=== PATIENT | male | born 1945 | race Caucasian/White ===

== ENCOUNTER 2017-05-20 13:21 | Inpatient (IN) | payer MEDICARE, OTHER ==
[~2017-05-20] VITALS: Ht 162.6 cm; Wt 61.1 kg
[~2017-05-20 13:21] MED LIST: ALBUTEROL 0.083% (NEB) 2.5 MG/3 ML AMP ONE
[2017-05-20 13:29] VITALS: Ht 162.6 cm; Wt 61.1 kg
--- NOTE | 2017-05-20 13:38 | ERA ---
ER Documentation Chief Complaint Date/Time DATE: 05/20/17 TIME: 13:37 Chief Complaint SOB X 4 DAYS HPI The patient is a 72-year-old male, presenting to the ER by ambulance because he has had shortness of breath, generalized weakness, dry mouth, intermittent dry cough for the last 4 days. He also complained of headache yesterday but denies any headache now, complains of insomnia, denies fever, chills, neck pain, chest pain. He complains of shortness of breath that is worsened with cough, denies abdominal pain, vomiting, dysuria, diarrhea. He lives alone, smokes a pack a day, denies drinking Past medical history: COPD, hypertension, dyslipidemia Past surgical history: Appendectomy ROS All systems reviewed and are negative except as per history of present illness. Medications Home Meds Reported Medications Albuterol Sulfate* (Ventolin HFA*) 18 Gm Hfa.aer.ad, 2 PUFF INHALATION Q6H, #1 INHALER 05/20/17 Ipratropium-Albuterol (Ipratropium-Albuterol) 0.5-3 Mg/3 Ml Ampul.neb, 3 ML INHALATION BID, #30 VIAL 05/20/17 Cholecalciferol* (Vitamin D3*) 1,000 Unit Tablet, 3000 UNIT PO DAILY, TAB 05/20/17 Lorazepam* (Lorazepam*) 0.5 Mg Tablet, 0.5 MG PO HS Y for ANXIETY, TAB 05/20/17 Montelukast Sodium* (Singulair*) 10 Mg Tablet, 10 MG PO QHS, #30 TAB 05/20/17 Olmesartan Medoxomil (Benicar) 20 Mg Tablet, 20 MG PO QAM, #30 TAB 05/20/17 Allergies Allergies: Coded Allergies: No Known Allergy (Unverified , 05/20/17) PMhx/Soc History of Surgery: Yes (APPENDECTOMY) Anesthesia Reaction: No Hx Neurological Disorder: No Hx Respiratory Disorders: Yes (COPD) Hx Cardiac Disorders: Yes (HTN, HIGH CHOLESTEROL) Hx Psychiatric Problems: No Hx Miscellaneous Medical Probl: Yes (EPIDYDIMITIS) Hx Alcohol Use: No Hx Substance Use: No Hx Tobacco Use: Yes Smoking Status: Current every day smoker Physical Exam Vitals Vital Signs Date Time Temp Pulse Resp B/P Pulse Ox O2 Delivery O2 Flow Rate FiO2 05/20/17 17:23 82 22 112/76 95 Room Air 05/20/17 15:41 92 23 124/96 99 Room Air 05/20/17 14:05 98 18 93 21 05/20/17 13:29 98.1 75 26 115/89 98 Physical Exam Const: Mild acute distress. Head: Atraumatic. Eyes: Normal Conjunctiva. ENT: Normal External Ears, Nose and Mouth. Neck: Full range of motion. No meningismus. Resp: Bilateral expiratory wheezes, tachypnea Cardio: Regular rate and rhythm. Abd: Soft, non distended, normal bowel sounds, non tender. Skin: No petechiae or rashes. Back: No midline or flank tenderness. Ext: No cyanosis, or edema. Neur: Awake and alert. No focal deficit Psych: Normal Mood and Affect. Result Diagram: 05/20/17 1345 05/20/17 1345 Results 24 hrs Laboratory Tests Test 05/20/17 13:45 05/20/17 15:13 05/20/17 15:25 White Blood Count 9.910^3/ul Red Blood Count 4.8610^6/ul Hemoglobin 14.6g/dl Hematocrit 44.2% Mean Corpuscular Volume 90.9fl Mean Corpuscular Hemoglobin 30.0pg Mean Corpuscular Hemoglobin Concent 33.0g/dl Red Cell Distribution Width 14.2% Platelet Count 41524^3/UL Mean Platelet Volume 10.9fl Neutrophils % 69.2% Lymphocytes % 19.7% Monocytes % 8.5% Eosinophils % 1.4% Basophils % 0.6% Nucleated Red Blood Cells % 0.0/100WBC Neutrophils # 6.810^3/ul Lymphocytes # 1.910^3/ul Monocytes # 0.810^3/ul Eosinophils # 0.110^3/ul Basophils # 0.110^3/ul Nucleated Red Blood Cells # 0.010^3/ul Prothrombin Time 12.2Sec Prothrombin Time Ratio 1.0 INR International Normalized Ratio 0.91 Activated Partial Thromboplast Time 32.0Sec Sodium Level 137mmol/L Potassium Level 4.4mmol/L Chloride Level 107mmol/L Carbon Dioxide Level 24mmol/L Anion Gap 10 Blood Urea Nitrogen 19mg/dl Creatinine 0.93mg/dl Glucose Level 113mg/dl Lactic Acid Level 1.5mmol/L Calcium Level 8.9mg/dl Total Bilirubin 0.2mg/dl Direct Bilirubin 0.00mg/dl Indirect Bilirubin 0.2mg/dl Aspartate Amino Transf (AST/SGOT) 19IU/L Alanine Aminotransferase (ALT/SGPT) 41IU/L Alkaline Phosphatase 121IU/L Troponin I < 0.012ng/ml Total Protein 7.0g/dl Albumin 4.0g/dl Globulin 3.00g/dl Albumin/Globulin Ratio 1.33 Urine Color YELLOW Urine Clarity CLEAR Urine pH 6.0 Urine Specific [place] 1.009 Urine Ketones NEGATIVEmg/dL Urine Nitrite NEGATIVEmg/dL Urine Bilirubin NEGATIVEmg/dL Urine Urobilinogen NEGATIVEmg/dL Urine Leukocyte Esterase NEGATIVELeu/ul Urine Hemoglobin NEGATIVEmg/dL Urine Glucose NEGATIVEmg/dL Urine Total Protein NEGATIVEmg/dl Bedside Urine pH (LAB) 6.5 Bedside Urine Protein (LAB) Negative Bedside Urine Glucose (UA) Negative Bedside Urine Ketones (LAB) Negative Bedside Urine Blood Negative Bedside Urine Nitrite (LAB) Negative Bedside Urine Leukocyte Esterase (L Negative Current Medications Medications (Trade) Dose Ordered Sig/Baljeet Route PRN Reason Start Time Stop Time Status Last Admin Dose Admin Levalbuterol (Xopenex Neb) 3.75 mg ONCE STAT INH 05/20/17 13:43 05/20/17 13:46 DC 05/20/17 14:05 Ipratropium [place] (Atrovent 0.02% (Neb)) 1.5 mg ONCE STAT INH 05/20/17 13:43 05/20/17 13:46 DC 05/20/17 14:05 Methylprednisolone Sodium Succinate 125 mg 125 mg ONCE ONCE IV 05/20/17 14:00 05/20/17 14:01 DC 05/20/17 14:03 Sodium Chloride 2,250 ml @ 2,250 mls/hr BOLUS X1 ONCE IV 05/20/17 14:00 05/20/17 14:59 DC 05/20/17 14:03 Levofloxacin/ Dextrose (Levaquin 750 Mg/ D5W 150 ml (Pmx)) 150 ml @ 100 mls/hr ONCE ONCE IVPB 05/20/17 15:00 05/20/17 16:29 DC 05/20/17 15:05 IV Flush (NS 3 ml) 3 ml PER PROTOCOL IV 05/20/17 15:30 Ondansetron HCl (Zofran Inj) 4 mg Q6H PRN IV NAUSEA AND/OR VOMITING 05/20/17 15:30 Acetaminophen (Tylenol Tab) 650 mg Q6H PRN PO PAIN LEVEL 1-3 OR FEVER 05/20/17 15:30 Acetaminophen/ Hydrocodone Bitart ([place] (5/325)) 1 tab Q6H PRN PO MODERATE PAIN LEVEL 4-6 05/20/17 15:30 Morphine Sulfate (morphine) 2 mg Q4H PRN IV SEVERE PAIN LEVEL 7-10 05/20/17 15:30 Docusate Sodium (Colace) 100 mg Q12H PRN PO CONSTIPATION 05/20/17 15:30 Magnesium Hydroxide (Milk Of Mag) 30 ml DAILY PRN PO CONSTIPATION 05/20/17 15:30 Sodium Biphosphate/ Sodium Phosphate (Fleet Enema) 133 ml DAILY PRN [place] CONSTIPATION 05/20/17 15:30 Heparin Sodium (Porcine) 5000 unit 5,000 unit Q12 SC 05/20/17 21:00 Sodium Chloride (1/2 NS) 1,000 ml @ 75 mls/hr [id number] IV 05/20/17 15:15 Lorazepam (Ativan) 0.5 mg Q6H PRN IV ANXIETY 05/20/17 15:30 05/20/17 16:10 Albuterol/ Ipratropium 3 ml 3 ml Q4H RESP THERAPY HHN 05/20/17 17:00 Levofloxacin/ Dextrose (Levaquin 750 Mg/ D5W 150 ml (Pmx)) 150 ml @ 100 mls/hr Q24H IVPB 05/21/17 14:00 Hydralazine HCl (Apresoline) 10 mg Q6H PRN IV ELEVATED BLOOD PRESSURE 05/20/17 15:30 Clonidine (Catapres) 0.1 mg Q6H PRN PO ELEVATED BLOOD PRESSURE 05/20/17 15:30 Nitroglycerin (Nitroglycerin (Sl Tab) 0.4 Mg) 1 tab Q5M PRN SL ANGINA 05/20/17 15:30 Cholecalciferol (Vitamin D) 3,000 unit DAILY PO 05/21/17 09:00 Montelukast Sodium (Singulair) 10 mg QHS PO 05/20/17 21:00 Methylprednisolone Sodium Succinate (Solu-Medrol) 125 mg Q6 IV 05/20/17 18:00 Phenol (Cepastat Lozenge) 1 lozenge Q1H PRN MT COUGH 05/20/17 16:00 Nicotine (Nicoderm 21 Mg/ 24hr) 1 patch DAILY TRANSDERM 05/20/17 18:00 Procedures/MDM [place] [id number] Radiology Main Line: [phone] DIAGNOSTIC IMAGING REPORT Patient: AZ MACKENZIE : 1945 Age: 72 Sex: M MR #: [id number] DOS: 05/20/17 134 Ordering MD: ASHLEY ANDERSEN MD Location: E/R Room/Bed: PROCEDURE: XR Chest. CLINICAL INDICATION: Shortness of breath TECHNIQUE: Single portable view of the chest was obtained COMPARISON: No priors for comparison. FINDINGS: The trachea is midline. The cardiac silhouette and pulmonary vascularity are within normal limits. There are bilateral chronic lung changes. The lungs are otherwise clear.. The costophrenic angles are sharp. IMPRESSION: 1. Bilateral chronic lung changes. No evidence of acute cardiopulmonary disease. RPTAT: AARR Physician Agapito Date Time Electronically viewed and signed by Physician Agapito on 05/20/2017 14:46 JL/ CC: ASHLEY ANDERSEN MD [place] [id number] Radiology Main Line: [phone] DIAGNOSTIC IMAGING REPORT Patient: AZ MACKENZIE : 1945 Age: 72 Sex: M MR #: [id number] DOS: 05/20/17 1343 Ordering MD: ASHLEY ANDERSEN MD Location: E/R Room/Bed: PROCEDURE: CT head without intravenous contrast CLINICAL INDICATION: Headache. COMPARISON: None relevant listed. TECHNIQUE: Axial CT images from skull base to vertex with coronal and sagittal reformats. DOSE: The estimated administered radiation dose was CTDI vol = 43 mGy. DLP = 878 mGy-cm. One or more of the following dose reduction techniques were used: automated exposure control, adjustment of the mA and/or kV according to patient size, or use of iterative reconstruction. FINDINGS: Parenchyma: No acute hemorrhage, large territorial infarction, or mass. Mild amount of periventricular and subcortical white matter hypodensity, a nonspecific finding often associated with chronic microangiopathy. Ventricles: Mild generalized volume with proportionate ex vacuo ventricular dilation. Extra-axial spaces: No herniation or midline shift. Paranasal sinuses: Tiny mucous retention cyst or polyp in the left maxillary sinus. Bilateral francisco bullosa, larger on the right. Mastoids and middle ears: Clear. Vessels: No calcified atherosclerotic arterial plaque identified. Bones: Normal. Extracranial soft tissues: Normal. Additional comment: Bilateral lens replacements. IMPRESSION: 1. No acute intracranial abnormality. 2. Chronic senescent findings characterized by volume loss and white matter changes. RPTAT: AA Physician Leigh Date Time Electronically viewed and signed by Physician Leigh on 05/20/2017 15: 39 LG/ CC: ASHLEY ANDERSEN MD EKG: Read by emergency physician Rate/Rhythm: Normal Sinus Rhythm 73 beats/min QRS, ST, T-waves: No ST elevation, no T inversion Impression: Normal EKG MEDICAL MAKING DECISION: The patient is a 72-year-old male, presenting with acute COPD exacerbation, acute dehydration. He was treated with Solu-Medrol 125 mg IV, Atrovent 1.5 mg and Xopenex 3.75 mg over one hour and Levaquin IV and normal saline 30 mL/kg IV with good response Urinalysis is pending The differential diagnoses considered include but are not limited to asthma, COPD, pneumonia, pulmonary embolus, pleural effusion, congestive heart failure. Departure Diagnosis: Primary Impression: COPD exacerbation Additional Impression: Dehydration Comments I discussed the findings with the patient. I discussed the patient with the on- call hospitalist Dr. Martin at 3 PM. who was made aware of the lab, the treatment , the patient condition. The patient is admitted to telemetry ASHLEY ANDERSEN MD May 20, 2017 13:37
[2017-05-20] MEDS ORDERED: IPRATROPIUM (NEB) 0.5 MG/2.5 ML AMP INH STA (13:43)
[2017-05-20] MEDS ORDERED: LEVALBUTEROL (NEB) 1.25 MG/0.5 ML AMP INH STA (13:43)
[2017-05-20] MEDS ORDERED: METHYLPREDNISOLONE 125 MG INJ IV ONE (14:00)
[2017-05-20] MEDS ORDERED: SOD CHLORIDE 0.9% 2,250 ML IV ONE (14:00)
[2017-05-20 14:08] LABS: BASOPHIL # 0.1 10^3/ul (0.0-0.1); BASOPHILS % 0.6 % (0.0-2.0); EOSINOPHILS # 0.1 10^3/ul (0.0-0.5); EOSINOPHILS % 1.4 % (0.0-7.0); HEMATOCRIT 44.2 % (42.0-52.0); HEMOGLOBIN 14.6 g/dl (14.0-18.0); LYMPHOCYTES # 1.9 10^3/ul (0.8-2.9); LYMPHOCYTES % 19.7 % (15.0-51.0); MEAN CORPUSCULAR VOLUME 90.9 fl (82.0-101.0); MEAN PLATELET VOLUME 10.9 fl (7.4-10.4); MONOCYTE # 0.8 10^3/ul (0.3-0.9); MONOCYTES % 8.5 % (0.0-11.0); NEUTROPHIL # 6.8 10^3/ul (1.6-7.5); NEUTROPHILS % 69.2 % (39.0-77.0); PLATELET COUNT 221 10^3/UL (140-415); RED BLOOD COUNT 4.86 10^6/ul (4.70-6.10); RED CELL DISTRIBUTION WIDTH 14.2 % (11.5-14.5); WHITE BLOOD COUNT 9.9 10^3/ul (4.8-10.8)
[2017-05-20 14:21] LABS: INR 0.91; PROTIME 12.2 Sec (12.2-14.2)
[2017-05-20 14:24] LABS: ALANINE AMINOTRANSFERASE 41 IU/L (13-69); ALBUMIN/GLOBULIN RATIO 1.33; ALKALINE PHOSPHATASE 121 IU/L (42-121); ANION GAP 10 (8-16); ASPARTATE AMINO TRANSFERASE 19 IU/L (15-46); BILIRUBIN,INDIRECT 0.2 mg/dl (0-1.1); BILIRUBIN,TOTAL 0.2 mg/dl (0.2-1.3); BLOOD UREA NITROGEN 19 mg/dl (7-20); CALCIUM 8.9 mg/dl (8.4-10.2); CARBON DIOXIDE 24 mmol/L (21-31); CHLORIDE 107 mmol/L (97-110); CREATININE 0.93 mg/dl (0.61-1.24); GLUCOSE 113 mg/dl (70-220); POTASSIUM 4.4 mmol/L (3.5-5.1); SODIUM 137 mmol/L (135-144)
[2017-05-20 14:41] LABS: TROPONIN-I < 0.012 ng/ml (0.00-0.12)
--- NOTE | 2017-05-20 14:47 | RADRPT ---
PROCEDURE: XR Chest. CLINICAL INDICATION: Shortness of breath TECHNIQUE: Single portable view of the chest was obtained COMPARISON: No priors for comparison. FINDINGS: The trachea is midline. The cardiac silhouette and pulmonary vascularity are within normal limits. T here are bilateral chronic lung changes. The lungs are otherwise clear.. The costophrenic angles are sharp. IMPRESSION: 1. Bilateral chronic lung changes. No evidence of acute cardiopulmonary disease. RPTAT: AARR Physician Agapito Date Time Electronically viewed and signed by Physician Agapito on 05/20/2017 14:46 TRESA/
[2017-05-20] MEDS ORDERED: LEVOFLOXACIN 750MG/D5W (PMX) 150 ML IVPB ONE (15:00)
[2017-05-20] MEDS ORDERED: OLME20TA20 PO (15:05)
[2017-05-20] MEDS ORDERED: LORA0.5T PO (15:06)
[2017-05-20] MEDS ORDERED: MONT10TA21 PO (15:06)
[2017-05-20] MEDS ORDERED: CHOL100062 PO (15:07)
[2017-05-20] MEDS ORDERED: IPRA3AMP INHALATION (15:07)
[2017-05-20] MEDS ORDERED: ALBU18HF INHALATION (15:08)
[2017-05-20 15:17] LABS: URINE BLOOD (Dip) POC Negative (NEGATIVE)
[2017-05-20] MEDS ORDERED: morphine 2 MG INJ IV PRN (15:30)
[2017-05-20] MEDS ORDERED: MAGNESIUM HYDROXIDE 30ML CUP PO PRN (15:30)
[2017-05-20] MEDS ORDERED: HYDROCODONE/APAP (5/325) TAB PO PRN (15:30)
[2017-05-20] MEDS ORDERED: NA PHOSPHATE/BIPHOS 133 ML ENEMA PR PRN (15:30)
[2017-05-20] MEDS ORDERED: ONDANSETRON 4 MG INJ IV PRN (15:30)
[2017-05-20] MEDS ORDERED: DOCUSATE SODIUM 100 MG CAP PO PRN (15:30)
[2017-05-20] MEDS ORDERED: hydrALAzine 20 MG INJ IV PRN (15:30)
[2017-05-20] MEDS ORDERED: NACL 0.9% 3 ML SYG IV SCH (15:30)
[2017-05-20] MEDS ORDERED: ACETAMINOPHEN 325 MG TAB PO PRN (15:30)
--- NOTE | 2017-05-20 15:39 | RADRPT ---
PROCEDURE: CT head without intravenous contrast CLINICAL INDICATION: Headache. COMPARISON: None relevant listed. TECHNIQUE: Axial CT images from skull base to vertex with coronal and sagittal reformats. DOSE: The estimated administered radiation dose was CTDI vol = 43 mGy. DLP = 878 mGy-cm. One or mor e of the following dose reduction techniques were used: automated exposure control, adjustment of th e mA and/or kV according to patient size, or use of iterative reconstruction. FINDINGS: Parenchyma: No acute hemorrhage, large territorial infarction, or mass. Mild amount of periventricul ar and subcortical white matter hypodensity, a nonspecific finding often associated with chronic benjamin roangiopathy. Ventricles: Mild generalized volume with proportionate ex vacuo ventricular dilation. Extra-axial spaces: No herniation or midline shift. Paranasal sinuses: Tiny mucous retention cyst or polyp in the left maxillary sinus. Bilateral francisco bullosa, larger on the right. Mastoids and middle ears: Clear. Vessels: No calcified atherosclerotic arterial plaque identified. Bones: Normal. Extracranial soft tissues: Normal. Additional comment: Bilateral lens replacements. IMPRESSION: 1. No acute intracranial abnormality. 2. Chronic senescent findings characterized by volume loss and white matter changes. RPTAT: AA Physician Leigh Date Time Electronically viewed and signed by Physician Leigh on 05/20/2017 15:39 LG/
[2017-05-20] MEDS ORDERED: CEPASTAT LOZENGE MT PRN (16:00)
[2017-05-20] MEDS: LORAZEPAM 2 MG INJ IV PRN ×2 (16:10→23:30)
--- NOTE | 2017-05-20 16:23 | HP ---
DATE OF ADMISSION: 05/20/2017 CHIEF COMPLAINT: Shortness of breath. HISTORY OF PRESENT ILLNESS: A 72-year-old male, past medical history of COPD, positive smoking history, prior epididymitis, high cholesterol, essential hypertension, who was brought in by ambulance today because he was having shortness of breath. The patient states he did have shortness of breath for the last 4 days. He has been having positive mild productive cough as well and some mild headache symptoms as well, but no fevers or chills. No chest pain. No diarrhea or constipation. No hemoptysis. No nausea or vomiting. The patient apparently lives alone and smokes about a pack a day. He has been doing that for the last 60 years. When he came in today he had a chest x-ray done that showed bilateral chronic lung changes, but no evidence of any acute cardiopulmonary disease. PAST MEDICAL HISTORY: As above. ALLERGIES: NO KNOWN DRUG ALLERGIES. HOME MEDICATIONS: Ventolin HFA 2 puffs inhaled every 6 hours, Atrovent inhaled b.i.d., Benicar 20 mg every morning, lorazepam 0.5 mg at bedtime as needed, singular 10 mg at bedtime, and vitamin D3 3000 units daily. PAST SURGICAL HISTORY: Appendectomy in the past. SOCIAL HISTORY: Again, he has a positive 60 pack-year smoking history, still active smoker. Denies any IV drug abuse or alcohol use today. PHYSICAL EXAMINATION: T-max 98.1, pulse 75, respirations 26, blood pressure 115/89, and satting at 98 percent on room air. GENERAL: The patient lying in bed, answers questions appropriately, no acute distress. HEENT: Pupils equal, round, reactive to light. Extraocular muscles intact. NECK: Supple. No thyromegaly. LUNGS: Positive expiratory wheezes bilaterally. No rhonchi. CARDIAC: S1, S2 heard. No rubs or gallops. ABDOMEN: Soft, nontender, nondistended. Normal bowel sounds. No rebound or guarding. MUSCULOSKELETAL: Normal lower extremity bilaterally. NEUROLOGIC: No focal deficits. LABORATORY DATA: CBC is completely normal. The comprehensive metabolic panel is normal. Troponin negative times 1. Lactic acid is normal at 1.5. Coags are normal. UA is negative. Nitrite negative. Leukocyte esterase positive. We mentioned the chest x-ray results. ASSESSMENT AND PLAN: A 72-year-old male with past medical history of chronic obstructive pulmonary disease (COPD), high cholesterol, hypertension, and positive smoking history, presents with shortness of breath and weakness, likely secondary to chronic obstructive pulmonary disease (COPD) exacerbation. 1. Shortness of breath. Again, likely secondary to chronic obstructive pulmonary disease (COPD) exacerbation. Admit the patient. Put him on breathing treatments every 4 hours around the clock. DuoNeb. Put him on IV steroids 125 mg of Solu-Medrol every 6 hours for now. Check TSH, A1c, lipid panel. Put him on Levaquin every day as well. Consider physical therapy consult as well. 2. Essential hypertension. Blood pressure is stable. For now he will get hydralazine as needed. Consider restarting home blood pressure medicine as well. 3. History of high cholesterol. Check lipid panel. 4. History of prior epididymitis. No present issues. Continue monitor for now. 5. Deep venous thrombosis (DVT) prophylaxis. Put on heparin subcutaneous. Dictated By: Charlie Sorenson MD /cally/jennyfer /Document#: [id number]
[2017-05-20 16:27] LABS: ADD UMIC NO; UR ASCORBIC ACID NEGATIVE (NEGATIVE); UR BILIRUBIN (Dip) NEGATIVE (NEGATIVE); UR BLOOD (Dip) NEGATIVE (NEGATIVE); UR CLARITY CLEAR (CLEAR); UR COLOR YELLOW (YELLOW); UR GLUCOSE (Dip) NEGATIVE (NEGATIVE); UR KETONES (Dip) NEGATIVE (NEGATIVE); UR LEUKOCYTE ESTERASE (Dip) NEGATIVE Leu/ul (NEGATIVE); UR NITRITE (Dip) NEGATIVE (NEGATIVE); UR SPECIFIC GRAVITY (Dip) 1.009 (1.003-1.030); UR TOTAL PROTEIN (Dip) NEGATIVE (NEGATIVE); UR UROBILINOGEN (Dip) NEGATIVE (NEGATIVE)
[2017-05-20] MEDS: METHYLPREDNISOLONE 125 MG INJ IV SCH ×2 (19:26→23:42)
[2017-05-20] MEDS: NICOTINE (21 MG/24 HR) PATCH TRANSDERM SCH (19:26)
[2017-05-20] MEDS: SOD CHLORIDE 0.45% 1,000 ML IV SCH (19:26)
[2017-05-20 19:40] VITALS: TEMP 98.3
[2017-05-20 20:15] VITALS: BP 136/67; PULSE 78; RESP 18
[2017-05-20] MEDS: MONTELUKAST 10 MG TAB PO SCH (20:25)
[2017-05-20] MEDS: HEPARIN 5,000 UNIT/0.5 ML VIAL SC SCH (20:27)
[2017-05-20 20:32] VITALS: BP 136/67; RESP 18
[2017-05-20] MEDS: ALBUTEROL/IPRATROPIUM (NEB) 3 ML AMP HHN SCH (23:23)
[2017-05-21] MEDS: ALBUTEROL/IPRATROPIUM (NEB) 3 ML AMP HHN SCH ×6 (01:00→21:00)
[2017-05-21 01:48] VITALS: BP 115/57; RESP 18
[2017-05-21] MEDS: SOD CHLORIDE 0.45% 1,000 ML IV SCH ×2 (04:35→16:35)
[2017-05-21 05:47] LABS: HEMATOCRIT 37.4 % (42.0-52.0); HEMOGLOBIN 12.1 g/dl (14.0-18.0); LYMPHOCYTES # 0.9 10^3/ul (0.8-2.9); LYMPHOCYTES % 10.5 % (15.0-51.0); MEAN CORPUSCULAR HEMOGLOBIN 29.3 pg (29.0-33.0); MEAN CORPUSCULAR HGB CONC 32.4 g/dl (32.0-37.0); MEAN CORPUSCULAR VOLUME 90.6 fl (82.0-101.0); MEAN PLATELET VOLUME 11.2 fl (7.4-10.4); MONOCYTE # 0.2 10^3/ul (0.3-0.9); MONOCYTES % 2.3 % (0.0-11.0); NEUTROPHIL # 7.7 10^3/ul (1.6-7.5); NEUTROPHILS % 86.5 % (39.0-77.0); PLATELET COUNT 197 10^3/UL (140-415); RED BLOOD COUNT 4.13 10^6/ul (4.70-6.10); RED CELL DISTRIBUTION WIDTH 14.2 % (11.5-14.5); WHITE BLOOD COUNT 8.8 10^3/ul (4.8-10.8)
[2017-05-21] MEDS: METHYLPREDNISOLONE 125 MG INJ IV SCH ×4 (05:52→23:35)
[2017-05-21 06:30] LABS: CHOL/HDL RATIO 3.2 RATIO
[2017-05-21 06:38] LABS: CREATININE 0.84 mg/dl (0.61-1.24); MAGNESIUM 1.9 mg/dl (1.7-2.5); PHOSPHORUS 3.2 mg/dl (2.5-4.9); POTASSIUM 4.3 mmol/L (3.5-5.1)
[2017-05-21 06:55] LABS: THYROID STIMULATING HORMONE 0.209 MIU/L (0.465-4.680)
[2017-05-21 08:02] VITALS: BP 121/57; RESP 20
[2017-05-21] MEDS: NICOTINE (21 MG/24 HR) PATCH TRANSDERM SCH (09:04)
[2017-05-21] MEDS: CHOLECALCIFEROL 1,000 UNIT TAB PO SCH (09:05)
[2017-05-21] MEDS: HEPARIN 5,000 UNIT/0.5 ML VIAL SC SCH ×2 (09:24→20:17)
--- NOTE | 2017-05-21 12:19 | PN ---
Date/Time of Note Date/Time of Note DATE: 05/21/17 TIME: 12:16 Assessment/Plan VTE Prophylaxis VTE Prophylaxis Intervention: heparin Lines/Catheters IV [facility] Peripheral IV Assessment/Plan Chief Complaint/Hosp Course ASSESSMENT AND PLAN: 72-year-old male with past medical history of chronic obstructive pulmonary disease (COPD), high cholesterol, hypertension, and positive smoking history, presents with shortness of breath and weakness, likely secondary to chronic obstructive pulmonary disease (COPD) exacerbation. 1. Shortness of breath. Again, likely secondary to chronic obstructive pulmonary disease (COPD) exacerbation-slowly improving. Continue - breathing treatments every 4 hours around the clock. DuoNeb, and IV steroids 125 mg of Solu-Medrol every 6 hours for now. f/u TSH, A1c, lipid panel. Levaquin every day as well. Consider physical therapy consult as well. 2. Essential hypertension. Blood pressure is stable. For now he will get hydralazine as needed. 3. History of high cholesterol - f/ulipid panel. 4. History of prior epididymitis. No present issues. Continue monitor for now. 5. Deep venous thrombosis (DVT) prophylaxis. Put on heparin subcutaneous. 6. smoking cessation - nicotine patch Problems: Subjective 24 Hr Interval Summary Free Text/Dictation Patient still having shortness of breath. Per nursing staff, wanted to smoke, informed he cannot do that while he is here in the hospital. Patient also asking about vague complaints of abdominal pain and requesting CT scan of abdomen and pelvis. Exam/Review of Systems Vital Signs Vitals Vital Signs Date Time Temp Pulse Resp B/P Pulse Ox O2 Delivery O2 Flow Rate FiO2 05/21/17 08:02 98.3 66 20 121/57 95 05/21/17 07:56 21 05/20/17 20:15 Room Air Intake and Output 05/20/17 05/20/17 05/21/17 15:00 23:00 07:00 Intake Total 1200 ml Output Total 1550 ml Balance -350 ml Exam GENERAL: The patient lying in bed, answers questions appropriately, no acute distress. HEENT: Pupils equal, round, reactive to light. Extraocular muscles intact. NECK: Supple. No thyromegaly. LUNGS: Positive expiratory wheezes bilaterally. No rhonchi. CARDIAC: S1, S2 heard. No rubs or gallops. ABDOMEN: Soft, nontender, nondistended. Normal bowel sounds. No rebound or guarding. MUSCULOSKELETAL: Normal lower extremity bilaterally. NEUROLOGIC: No focal deficits. Results Result Diagram: 05/21/17 0514 05/21/17 0514 Results 24 hrs Laboratory Tests Test 05/20/17 13:45 05/20/17 15:13 05/20/17 15:25 05/20/17 18:15 White Blood Count 9.9 Red Blood Count 4.86 Hemoglobin 14.6 Hematocrit 44.2 Mean Corpuscular Volume 90.9 Mean Corpuscular Hemoglobin 30.0 Mean Corpuscular Hemoglobin Concent 33.0 Red Cell Distribution Width 14.2 Platelet Count 221 Mean Platelet Volume 10.9 H Neutrophils % 69.2 Lymphocytes % 19.7 Monocytes % 8.5 Eosinophils % 1.4 Basophils % 0.6 Nucleated Red Blood Cells % 0.0 Neutrophils # 6.8 Lymphocytes # 1.9 Monocytes # 0.8 Eosinophils # 0.1 Basophils # 0.1 Nucleated Red Blood Cells # 0.0 Prothrombin Time 12.2 Prothrombin Time Ratio 1.0 INR International Normalized Ratio 0.91 Activated Partial Thromboplast Time 32.0 Sodium Level 137 Potassium Level 4.4 Chloride Level 107 Carbon Dioxide Level 24 Anion Gap 10 Blood Urea Nitrogen 19 Creatinine 0.93 Glucose Level 113 Lactic Acid Level 1.5 1.5 Calcium Level 8.9 Total Bilirubin 0.2 Direct Bilirubin 0.00 Indirect Bilirubin 0.2 Aspartate Amino Transf (AST/SGOT) 19 Alanine Aminotransferase (ALT/SGPT) 41 Alkaline Phosphatase 121 Troponin I < 0.012 Total Protein 7.0 Albumin 4.0 Globulin 3.00 Albumin/Globulin Ratio 1.33 Free Thyroxine 1.19 Urine Color YELLOW Urine Clarity CLEAR Urine pH 6.0 Urine Specific [place] 1.009 Urine Ketones NEGATIVE Urine Nitrite NEGATIVE Urine Bilirubin NEGATIVE Urine Urobilinogen NEGATIVE Urine Leukocyte Esterase NEGATIVE Urine Hemoglobin NEGATIVE Urine Glucose NEGATIVE Urine Total Protein NEGATIVE Bedside Urine pH (LAB) 6.5 Bedside Urine Protein (LAB) Negative Bedside Urine Glucose (UA) Negative Bedside Urine Ketones (LAB) Negative Bedside Urine Blood Negative Bedside Urine Nitrite (LAB) Negative Bedside Urine Leukocyte Esterase (L Negative Test 05/20/17 21:08 05/21/17 05:14 Lactic Acid Level 2.0 White Blood Count 8.8 Red Blood Count 4.13 L Hemoglobin 12.1 L Hematocrit 37.4 L Mean Corpuscular Volume 90.6 Mean Corpuscular Hemoglobin 29.3 Mean Corpuscular Hemoglobin Concent 32.4 Red Cell Distribution Width 14.2 Platelet Count 197 Mean Platelet Volume 11.2 H Neutrophils % 86.5 H Lymphocytes % 10.5 L Monocytes % 2.3 Eosinophils % 0.0 Basophils % 0.0 Nucleated Red Blood Cells % 0.0 Neutrophils # 7.7 H Lymphocytes # 0.9 Monocytes # 0.2 L Eosinophils # 0.0 Basophils # 0.0 Nucleated Red Blood Cells # 0.0 Sodium Level 136 Potassium Level 4.3 Chloride Level 109 Carbon Dioxide Level 24 Anion Gap 7 L Blood Urea Nitrogen 14 Creatinine 0.84 Glucose Level 174 Hemoglobin A1c 5.8 Calcium Level 9.0 Phosphorus Level 3.2 Magnesium Level 1.9 Triglycerides Level 54 Cholesterol Level 207 H LDL Cholesterol, Calculated 133 HDL Cholesterol 63 Cholesterol/HDL Ratio 3.2 Thyroid Stimulating Hormone (TSH) 0.209 L Medications Medications Current Medications Ondansetron HCl (Zofran Inj) 4 mg Q6H PRN IV NAUSEA AND/OR VOMITING; Start 05/27 at 15:30 Acetaminophen (Tylenol Tab) 650 mg Q6H PRN PO PAIN LEVEL 1-3 OR FEVER; Start 05/20/17 at 15:30 Acetaminophen/ Hydrocodone Bitart ([place] (5/325)) 1 tab Q6H PRN PO MODERATE PAIN LEVEL 4-6; Start 05/20/17 at 15:30 Morphine Sulfate (morphine) 2 mg Q4H PRN IV SEVERE PAIN LEVEL 7-10; Start 05/27 at 15:30 Docusate Sodium (Colace) 100 mg Q12H PRN PO CONSTIPATION; Start 05/20/17 at 15 :30 Magnesium Hydroxide (Milk Of Mag) 30 ml DAILY PRN PO CONSTIPATION; Start 05/20 at 15:30 Sodium Biphosphate/ Sodium Phosphate (Fleet Enema) 133 ml DAILY PRN [place] CONSTIPATION; Start 05/20/17 at 15:30 Heparin Sodium (Porcine) 5000 unit 5,000 unit Q12 SC Last administered on 05/21 09:24; Admin Dose 5,000 UNIT; Start 05/20/17 at 21:00 Sodium Chloride (1/2 NS) 1,000 ml @ 75 mls/hr [id number] IV Last administered on 10/10/17at 19:26; Admin Dose 75 MLS/HR; Start 05/20/17 at 15:15 Lorazepam 0.5 mg 0.5 mg Q6H PRN IV ANXIETY Last administered on 05/20/17 23: 30; Admin Dose 0.5 MG; Start 05/20/17 at 15:30 Levofloxacin/ Dextrose (Levaquin 750 Mg/ D5W 150 ml (Pmx)) 150 ml @ 100 mls/hr Q24H IVPB ; Start 05/21/17 at 14:00 Hydralazine HCl (Apresoline) 10 mg Q6H PRN IV ELEVATED BLOOD PRESSURE; Start 05/20/17 at 15:30 Clonidine (Catapres) 0.1 mg Q6H PRN PO ELEVATED BLOOD PRESSURE; Start at 15:30 Nitroglycerin (Nitroglycerin (Sl Tab) 0.4 Mg) 1 tab Q5M PRN SL ANGINA; Start 05/20/17 at 15:30 Cholecalciferol (Vitamin D) 3,000 unit DAILY PO Last administered on 09:05; Admin Dose 3,000 UNIT; Start 05/21/17 at 09:00 Montelukast Sodium (Singulair) 10 mg QHS PO Last administered on 05/20/17 20: 25; Admin Dose 10 MG; Start 05/20/17 at 21:00 Methylprednisolone Sodium Succinate (Solu-Medrol) 125 mg Q6 IV Last administered on 05/21/17 05:52; Admin Dose 125 MG; Start 05/20/17 at 18:00 Phenol (Cepastat Lozenge) 1 lozenge Q1H PRN MT COUGH; Start 05/20/17 at 16:00 Nicotine (Nicoderm 21 Mg/ 24hr) 1 patch DAILY TRANSDERM Last administered on 09:04; Admin Dose 1 PATCH; Start 05/20/17 at 18:00 MELIDA FRANCISCO May 21, 2017 12:19
[2017-05-21] MEDS ORDERED: BARIUM SULF 2% 450 ML BTL (BERRY SMOOTHIE) PO ONE ×2 (12:30→12:31)
[2017-05-21] MEDS ORDERED: SOD CHLORIDE 0.9% 100 ML ONE (12:46)
[2017-05-21] MEDS ORDERED: IOHEXOL 300MG/ML 150 ML BTL ONE (12:46)
[2017-05-21] MEDS: LEVOFLOXACIN 750MG/D5W (PMX) 150 ML IVPB SCH (14:18)
[2017-05-21 15:26] VITALS: BP 118/59; RESP 20
[2017-05-21] MEDS: LORAZEPAM 2 MG INJ IV PRN ×2 (16:45→23:35)
--- NOTE | 2017-05-21 17:28 | RADRPT ---
PROCEDURE: CT chest, abdomen, and pelvis with contrast. CLINICAL INDICATION: COPD and cough. Abdominal pain. TECHNIQUE: CT scan of the chest, abdomen, and pelvis was performed after the uneventful intravenous administration of 100 cc of Omnipaque-300. Oral contrast was also given prior to the examination. C oronal and sagittal reformatted images were obtained from the axial source images. Images were revie wed on a high-resolution PACS workstation. The total exam CTDI equals 11.02 mGy and the total exam D LP equals 832.7 mGy-cm. One or more of the following dose reduction techniques were used: - Automated exposure control. - Adjustment of the mA and/or kV according to patient size. - Use of iterative reconstruction technique. COMPARISON: Chest x-ray dated 05/20/2017. FINDINGS: Lungs, pleura, airways, and thoracic inlet: There is mild biapical scarring without focal consolida tion, effusion, or pneumothorax. There is also subsegmental atelectasis versus scarring at both lung bases. There is moderate centrilobular and paraseptal emphysema. There is an 8.5 mm spiculated nodu le in the posterobasal segment of the left lower lobe. There are no concerning pulmonary nodules or masses. There is moderate extensive bronchial wall thickening and there is a "saber sheath "appearan ce of the trachea, consistent with underlying obstructive airways disease. Cardiovascular system, mediastinum, and chest lymphatics: The heart is normal in size without peric ardial thickening or effusion. There are multivessel coronary artery calcifications. There are ather osclerotic changes of the aorta, which is nonaneurysmal. There is no axillary, hilar, or mediastinal adenopathy. Hepatobiliary system and spleen: There is an indeterminate sub-centimeter hypodensity in the anteri or right hepatic lobe that has too small to further characterize. The liver is otherwise normal in s ize and density with no additional focal hepatic lesion identified. There is no intra or extrahepati c biliary ductal dilatation. The gallbladder is unremarkable. The spleen is unremarkable. The pancre as is unremarkable. Adrenal glands and genitourinary system: The adrenal glands are unremarkable. There is fusion of th e lower poles of the kidneys at the midline, consistent with a horseshoe configuration of the kidney s. There is a 2 mm nonobstructing stone at the upper pole of the right kidney and a 6 mm nonobstruct ing stone at the lower pole of the right kidney. There are no renal masses or hydronephrosis. The ur inary bladder is unremarkable. The prostate gland is large measuring 4.9 cm in diameter. There is pe riurethral gland hyperplasia with a prominent median lobe that projects into the urinary bladder bas e. Gastrointestinal system: There is sigmoid diverticulosis without evidence of diverticulitis. There is no bowel wall thickening or evidence of obstruction. The appendix is not identified, but there ar e no secondary findings to suggest appendicitis. Peritoneum and abdominopelvic lymphatics: There is no free intraperitoneal air or free fluid. There is no mesenteric or retroperitoneal adenopathy. Musculoskeletal system and soft tissues: There are no concerning osseous lesions. 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 There are surgical clips in the right inguinal subcutaneous fat. The soft tissues are otherwise u nremarkable. IMPRESSION: 1. No acute cardiopulmonary abnormality. Moderate centrilobular and paraseptal emphysema and chroni c airway inflammatory change, consistent with obstructive airways disease (COPD). 2. Suspicious 8.5 mm spiculated nodule in the posterobasal segment of the left lower lobe, concerni ng for neoplasm. Short interval follow-up versus percutaneous sampling is recommended. 3. Horseshoe configuration of the kidneys. Right nonobstructing nephrolithiasis. 4. Enlarged prostate gland with periurethral gland hyperplasia and a prominent median lobe that pro jects into the urinary bladder base. Correlate with PSA. 5. Sigmoid diverticulosis without evidence of diverticulitis. 6. 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 7. Multivessel coronary artery calcifications and atherosclerotic changes of the aorta. RPTAT: HLBP .Oliver Zhu MD, Date Time Electronically viewed and signed by .Oliver Zhu MD, MD on 05/21/2017 17:27 .P/
[2017-05-21 19:29] VITALS: BP 139/67; RESP 18
[2017-05-21] MEDS: MONTELUKAST 10 MG TAB PO SCH (20:15)
[2017-05-22] MEDS: ALBUTEROL/IPRATROPIUM (NEB) 3 ML AMP HHN SCH ×3 (00:20→08:20)
[2017-05-22 02:00] VITALS: BP 116/58; RESP 20
[2017-05-22 06:14] LABS: BASOPHILS % 0.1 % (0.0-2.0); HEMATOCRIT 37.6 % (42.0-52.0); HEMOGLOBIN 12.4 g/dl (14.0-18.0); LYMPHOCYTES # 0.7 10^3/ul (0.8-2.9); LYMPHOCYTES % 4.9 % (15.0-51.0); MEAN CORPUSCULAR HEMOGLOBIN 29.8 pg (29.0-33.0); MEAN CORPUSCULAR VOLUME 90.4 fl (82.0-101.0); MEAN PLATELET VOLUME 11.4 fl (7.4-10.4); MONOCYTE # 0.7 10^3/ul (0.3-0.9); MONOCYTES % 4.7 % (0.0-11.0); NEUTROPHIL # 13.5 10^3/ul (1.6-7.5); PLATELET COUNT 214 10^3/UL (140-415); RED BLOOD COUNT 4.16 10^6/ul (4.70-6.10); RED CELL DISTRIBUTION WIDTH 14.2 % (11.5-14.5); WHITE BLOOD COUNT 15.2 10^3/ul (4.8-10.8)
[2017-05-22] MEDS: METHYLPREDNISOLONE 125 MG INJ IV SCH ×3 (06:19→23:34)
[2017-05-22] MEDS: SOD CHLORIDE 0.45% 1,000 ML IV SCH ×2 (06:19→20:33)
[2017-05-22] MEDS: LORAZEPAM 2 MG INJ IV PRN ×3 (06:21→23:34)
[2017-05-22 06:41] LABS: CALCIUM 9.2 mg/dl (8.4-10.2); CREATININE 0.96 mg/dl (0.61-1.24); POTASSIUM 4.1 mmol/L (3.5-5.1)
[2017-05-22 08:33] VITALS: BP 119/59; RESP 20
[2017-05-22] MEDS: CHOLECALCIFEROL 1,000 UNIT TAB PO SCH (09:02)
[2017-05-22] MEDS: NICOTINE (21 MG/24 HR) PATCH TRANSDERM SCH (09:02)
[2017-05-22] MEDS: HEPARIN 5,000 UNIT/0.5 ML VIAL SC SCH ×2 (10:04→20:54)
[2017-05-22] MEDS ORDERED: ALBUTEROL 18 GM INHALER INH PRN (11:00)
--- NOTE | 2017-05-22 11:48 | PN ---
Date/Time of Note Date/Time of Note DATE: 05/22/17 TIME: 11:45 Assessment/Plan VTE Prophylaxis VTE Prophylaxis Intervention: heparin Lines/Catheters IV [facility] Peripheral IV Assessment/Plan Chief Complaint/Hosp Course ASSESSMENT AND PLAN: 72-year-old male with past medical history of chronic obstructive pulmonary disease (COPD), high cholesterol, hypertension, and positive smoking history, presents with shortness of breath and weakness, likely secondary to chronic obstructive pulmonary disease (COPD) exacerbation. 1. Shortness of breath. Again, likely secondary to chronic obstructive pulmonary disease (COPD) exacerbation-slowly improving. Continue - breathing treatments every 4 hours prn DuoNeb, and IV steroids 80 mg of Solu-Medrol every 8 hours for now. Levaquin every day as well. -Given CT scan results of lung nodule, will get pulmonary consult as well. -Add pro-air HFA inhaled every 4 hours as needed and also guaifenesin and Cepastat 2. Essential hypertension. Blood pressure is stable. For now he will get hydralazine as needed. 3. History of high cholesterol - f/ulipid panel. 4. History of prior epididymitis. No present issues. Continue monitor for now. 5. Deep venous thrombosis (DVT) prophylaxis. Put on heparin subcutaneous. 6. smoking cessation - nicotine patch Problems: Subjective 24 Hr Interval Summary Free Text/Dictation Patient complaining of some dry throat, less shortness of breath symptoms. CT chest results noted including lung nodule found. Exam/Review of Systems Vital Signs Vitals Vital Signs Date Time Temp Pulse Resp B/P Pulse Ox O2 Delivery O2 Flow Rate FiO2 05/22/17 08:33 97.5 70 20 119/59 95 05/22/17 08:21 21 05/21/17 20:15 Nasal Cannula Intake and Output 05/21/17 05/21/17 05/22/17 15:00 23:00 07:00 Intake Total 1820 ml 2440 ml Output Total 1460 ml 1570 ml Balance 360 ml 870 ml Exam GENERAL: The patient lying in bed, answers questions appropriately, no acute distress. HEENT: Pupils equal, round, reactive to light. Extraocular muscles intact. NECK: Supple. No thyromegaly. LUNGS: Clear to auscultation bilaterally, no rhonchi. CARDIAC: S1, S2 heard. No rubs or gallops. ABDOMEN: Soft, nontender, nondistended. Normal bowel sounds. No rebound or guarding. MUSCULOSKELETAL: Normal lower extremity bilaterally. NEUROLOGIC: No focal deficits. Results Result Diagram: 05/22/17 0539 05/22/17 0539 Results 24 hrs Laboratory Tests Test 05/22/17 05:39 White Blood Count 15.2 #H Red Blood Count 4.16 L Hemoglobin 12.4 L Hematocrit 37.6 L Mean Corpuscular Volume 90.4 Mean Corpuscular Hemoglobin 29.8 Mean Corpuscular Hemoglobin Concent 33.0 Red Cell Distribution Width 14.2 Platelet Count 214 Mean Platelet Volume 11.4 H Neutrophils % 89.0 H Lymphocytes % 4.9 L Monocytes % 4.7 Eosinophils % 0.0 Basophils % 0.1 Nucleated Red Blood Cells % 0.0 Neutrophils # 13.5 H Lymphocytes # 0.7 L Monocytes # 0.7 Eosinophils # 0.0 Basophils # 0.0 Nucleated Red Blood Cells # 0.0 Sodium Level 137 Potassium Level 4.1 Chloride Level 106 Carbon Dioxide Level 25 Anion Gap 10 Blood Urea Nitrogen 20 Creatinine 0.96 Glucose Level 207 Calcium Level 9.2 Medications Medications Current Medications Ondansetron HCl (Zofran Inj) 4 mg Q6H PRN IV NAUSEA AND/OR VOMITING; Start 05/27 at 15:30 Acetaminophen (Tylenol Tab) 650 mg Q6H PRN PO PAIN LEVEL 1-3 OR FEVER; Start 05/20/17 at 15:30 Acetaminophen/ Hydrocodone Bitart ([place] (5/325)) 1 tab Q6H PRN PO MODERATE PAIN LEVEL 4-6; Start 05/20/17 at 15:30 Morphine Sulfate (morphine) 2 mg Q4H PRN IV SEVERE PAIN LEVEL 7-10; Start 05/27 at 15:30 Docusate Sodium (Colace) 100 mg Q12H PRN PO CONSTIPATION; Start 05/20/17 at 15 :30 Magnesium Hydroxide (Milk Of Mag) 30 ml DAILY PRN PO CONSTIPATION; Start 05/20 at 15:30 Sodium Biphosphate/ Sodium Phosphate (Fleet Enema) 133 ml DAILY PRN [place] CONSTIPATION; Start 05/20/17 at 15:30 Heparin Sodium (Porcine) 5000 unit 5,000 unit Q12 SC Last administered on 05/22t 10:04; Admin Dose 5,000 UNIT; Start 05/20/17 at 21:00 Sodium Chloride (1/2 NS) 1,000 ml @ 75 mls/hr [id number] IV Last administered on 05/22/17 06:19; Admin Dose 75 MLS/HR; Start 05/20/17 at 15:15 Lorazepam 0.5 mg 0.5 mg Q6H PRN IV ANXIETY Last administered on 05/22/17 06: 21; Admin Dose 0.5 MG; Start 05/20/17 at 15:30 Levofloxacin/ Dextrose (Levaquin 750 Mg/ D5W 150 ml (Pmx)) 150 ml @ 100 mls/hr Q24H IVPB Last administered on 05/21/17 14:18; Admin Dose 100 MLS/HR; Start 05/21/17 at 14:00 Hydralazine HCl (Apresoline) 10 mg Q6H PRN IV ELEVATED BLOOD PRESSURE; Start 05/20/17 at 15:30 Clonidine (Catapres) 0.1 mg Q6H PRN PO ELEVATED BLOOD PRESSURE; Start at 15:30 Nitroglycerin (Nitroglycerin (Sl Tab) 0.4 Mg) 1 tab Q5M PRN SL ANGINA; Start 05/20/17 at 15:30 Cholecalciferol (Vitamin D) 3,000 unit DAILY PO Last administered on 09:02; Admin Dose 3,000 UNIT; Start 05/21/17 at 09:00 Montelukast Sodium (Singulair) 10 mg QHS PO Last administered on 05/21/17 20: 15; Admin Dose 10 MG; Start 05/20/17 at 21:00 Methylprednisolone Sodium Succinate (Solu-Medrol) 125 mg Q6 IV Last administered on 05/22/17 06:19; Admin Dose 125 MG; Start 05/20/17 at 18:00 Phenol (Cepastat Lozenge) 1 lozenge Q1H PRN MT COUGH; Start 05/20/17 at 16:00 Nicotine (Nicoderm 21 Mg/ 24hr) 1 patch DAILY TRANSDERM Last administered on 09:02; Admin Dose 1 PATCH; Start 05/20/17 at 18:[address] chest abdomen pelvis: IMPRESSION: 1. No acute cardiopulmonary abnormality. Moderate centrilobular and paraseptal emphysema and chronic airway inflammatory change, consistent with obstructive airways disease (COPD). 2. Suspicious 8.5 mm spiculated nodule in the posterobasal segment of the left lower lobe, concerning for neoplasm. Short interval follow-up versus percutaneous sampling is recommended. 3. Horseshoe configuration of the kidneys. Right nonobstructing nephrolithiasis. 4. Enlarged prostate gland with periurethral gland hyperplasia and a prominent median lobe that projects into the urinary bladder base. Correlate with PSA. 5. Sigmoid diverticulosis without evidence of diverticulitis. 6. 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 7. Multivessel coronary artery calcifications and atherosclerotic changes of the aorta. MELIDA FRANCISCO. May 22, 2017 11:48
[2017-05-22] MEDS ORDERED: NICOTINE POLACRILEX 4 MG GUM BUCCAL PRN (12:00)
[2017-05-22] MEDS ORDERED: CEPASTAT LOZENGE MT PRN (12:00)
[2017-05-22] MEDS: ALBUTEROL/IPRATROPIUM (NEB) 3 ML AMP HHN PRN ×3 (12:45→23:49)
[2017-05-22] MEDS: LEVOFLOXACIN 750MG/D5W (PMX) 150 ML IVPB SCH (12:58)
[2017-05-22] MEDS: IPRATROPIUM (NEB) 0.5 MG/2.5 ML AMP HHN SCH ×2 (14:00→19:41)
[2017-05-22] MEDS ORDERED: METHYLPREDNISOLONE 125 MG INJ IV SCH (14:00)
--- NOTE | 2017-05-22 15:46 | CONS ---
DATE OF ADMISSION: 05/20/2017 DATE OF CONSULTATION: REFERRING PHYSICIAN: Dylan Martin. REASON FOR REFERRAL: Evaluation of severe COPD as well as abnormal CT chest showing nodules in the left lower lobe area. HISTORY OF PRESENT ILLNESS: Mr. Urrutia is a very pleasant 72-year-old white male who was admitted the day before yesterday with a few week history of increasing shortness of breath as well as wheezing. Patient also has been complaining of cough with very scant sputum production. According to him, he can only take 10 steps before he would get short of breath. The symptoms have been building up on him for the last several months, only with significant recent exacerbation. Upon evaluation, he had a chest x-ray done, which is showing severe emphysematous changes. Subsequently, the patient had a CT of the chest done, which is showing a spiculated 9 mm lesion in the left lower lobe area. Patient denies any hemoptysis, any weight loss. PAST MEDICAL HISTORY: 1. Severe chronic obstructive pulmonary disease. 2. Hypertension. 3. History of appendectomy. 4. No history of any respiratory failure. MEDICATIONS: 1. Levaquin 500 mg IV daily. 2. Normal saline at 75 mL per hour. 3. DuoNeb q.4h. 4. Clonidine on a p.r.n. basis. 5. Guaifenesin 200 mg q. 4 hours p.r.n. 6. Subcutaneous heparin 5000 units q.12h. 7. Solu-Medrol 80 mg hours. The patient also has received 125 mg q.6h. until the 10th of this month. 8. Morphine on a p.r.n. basis. 9. Nicotine gum. ALLERGIES: NONE. SOCIAL HISTORY: The patient still smokes. No history of alcohol or drug abuse. FAMILY HISTORY: He is single. He has 4 sons. 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 REVIEW OF SYSTEMS: Denies any headache, seizures, visual changes, sinus symptoms, postnasal drip. Denies any dysphagia or hoarseness, chest pain, angina. Complains of wheezing, shortness of breath, cough with sputum production. Denies any hemoptysis, any weight loss. Denies any melena or hematochezia. Complains of mild chronic orthopnea. Denies any edema, any skin changes, any arthritis symptoms. PHYSICAL EXAMINATION: GENERAL: Elderly male, awake, alert, currently in no distress. VITAL SIGNS: Temperature is 98 degrees Fahrenheit, respiratory rate is 20 per minute, heart rate 82 per minute, blood pressure 119/59, O2 saturation 95%. HEENT: Supple neck, no JVD, no lymphadenopathy, midline trachea, no thyromegaly. Pharynx clear, no neck bruits. Patient is edentulous and wears dentures. He has bilateral intraocular lens implants. LUNGS: Diminished breath sounds bilaterally with bilateral wheezing. HEART: S1, S2 audible. No murmurs, regular rhythm. ABDOMEN: Soft, nondistended. No organomegaly. Bowel sounds audible. EXTREMITIES: No edema, no clubbing. Pulses 1+ bilaterally. NEUROLOGIC: No focal deficit. LABORATORY DATA: Chest x-ray was reviewed from of this month, which is showing emphysematous changes. CT chest was reviewed from the of this month, showing a spiculated 9 mm lesion in the left lower lobe, which is concerning for possible primary bronchogenic carcinoma. Labs on admission: White count 9.9, today it is 15.2, hemoglobin from today is 12.4, platelet count of 214. Sodium 137, potassium 4.1, chloride 106, bicarbonate 25, BUN 20, creatinine 0.9. ASSESSMENT AND PLAN: 1. Patient admitted with severe chronic obstructive pulmonary disease exacerbation as well as acute bronchitis. 2. Left lower lobe lung lesions suspicious for underlying primary bronchogenic carcinoma. 3. Patient is a current smoker. RECOMMENDATIONS: Continue current treatment. Increase Solu-Medrol dosing from 80 mg q.8h. to 80 mg q.6 hours. Continue albuterol but add Atrovent q.i.d. The patient currently is too unstable to undergo any kind of workup regarding the left lower lobe lung lesion. Further workup will be deferred until clinically stable. Dictated By: GOSIA GALLAGHER/JORGE L Conf#: [id number] DID#: [id number] MTDD
[2017-05-22 16:00] VITALS: BP 120/64; RESP 18
[2017-05-22 19:27] VITALS: BP 119/59; RESP 20
[2017-05-22] MEDS: MONTELUKAST 10 MG TAB PO SCH (20:33)
--- NOTE | 2017-05-22 21:06 | RADRPT ---
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 Physician: MELIDA FRANCISCO Quality: Good Procedures: Transthoracic echocardiogram with complete 2D, M-Mode, and doppler examination. Indications: Shortness of breath. 2D/M Mode Doppler Measurement Value Normal Ranges Measurement Value Normal Ranges AoR Diam MM 3.5 cm RAYMOND Vmax 2.3 cm2 LA/Ao MM 1.1 RAYMOND VTI 2.2 cm2 LA Dimen MM 3.7 cm AV Peak Cj 1.5 m/sec LVIDd 2D 4.7 3.5 - 5.6 cm AV Peak PG 8.7 mmHg LVIDs 2D 3.2 2.1 - 4.1 cm LVOT Peak Cj 1.0 m/sec LVPWd 2D 1.0 0.6 - 1.1 cm LVOT Peak PG 4.2 mmHg IVSd 2D 1.0 0.6 - 1.1 cm MV E Peak Cj 0.9 m/sec EDV 2D 104.8 cm3 MV A Peak Cj 0.7 m/sec ESV 2D 33.7 cm3 MV E/A 1.3 EF 2D 60.0 50.0 - 65.0 % MV Decel Time 185 msec LVOT Diam 2.0 cm MV Decel [place] 5 MV E/A 1.3 TR Peak Cj 2.8 m/sec TR Peak PG 30.0 mmHg Findings Left Ventricle: Normal left ventricular systolic function. Normal left ventricular cavity size. Normal left ventricular wall thickness. Ejection fraction is visually estimated at 60 %. Right Ventricle: Normal right ventricular size. Normal right ventricular systolic function. Left Atrium: The left atrium is normal in size. Right Atrium: The right atrium is normal in size. Mitral Valve: Trace mitral regurgitation. Aortic Valve: Normal appearance of the aortic valve. No significant aortic stenosis or insufficiency. Tricuspid Valve: Estimated peak PA systolic pressure 33 mmHg. There is mild tricuspid regurgitation. Pulmonic Valve: Pulmonic valve not well visualized. Pericardium: Normal pericardium with no significant pericardial effusion. Aorta: Normal aortic root. IVC: Normal size and normal respiratory collapse consistent with normal right atrial pressure. Conclusions 1.Normal left ventricular systolic function. Normal left ventricular cavity size. Normal left ventricular wall thickness. Ejection fraction is visually estimated at 60 %. 2.Trace mitral regurgitation. 3.Estimated peak PA systolic pressure 33 mmHg. There is mild tricuspid regurgitation. Electronically Signed By: Ammon Ross 22-May-2017 21:05:31 -0700 Patient Name: AZ MACKENZIE Study Date: 22-May-2017 [id number]
[2017-05-23 01:59] VITALS: BP 133/62; RESP 20
[2017-05-23] MEDS: IPRATROPIUM (NEB) 0.5 MG/2.5 ML AMP HHN SCH ×5 (02:00→22:48)
[2017-05-23] MEDS: METHYLPREDNISOLONE 125 MG INJ IV SCH ×4 (05:58→23:28)
[2017-05-23 07:43] VITALS: BP 133/60; RESP 20
[2017-05-23 09:03] LABS: BASOPHILS % 0.1 % (0.0-2.0); HEMATOCRIT 36.7 % (42.0-52.0); HEMOGLOBIN 12.2 g/dl (14.0-18.0); LYMPHOCYTES # 0.6 10^3/ul (0.8-2.9); LYMPHOCYTES % 4.7 % (15.0-51.0); MEAN CORPUSCULAR HGB CONC 33.2 g/dl (32.0-37.0); MEAN CORPUSCULAR VOLUME 90.4 fl (82.0-101.0); MEAN PLATELET VOLUME 11.9 fl (7.4-10.4); MONOCYTE # 0.6 10^3/ul (0.3-0.9); MONOCYTES % 4.8 % (0.0-11.0); NEUTROPHIL # 11.9 10^3/ul (1.6-7.5); PLATELET COUNT 218 10^3/UL (140-415); RED BLOOD COUNT 4.06 10^6/ul (4.70-6.10); RED CELL DISTRIBUTION WIDTH 14.4 % (11.5-14.5); WHITE BLOOD COUNT 13.3 10^3/ul (4.8-10.8)
[2017-05-23 09:19] LABS: CREATININE 0.82 mg/dl (0.61-1.24); POTASSIUM 4.1 mmol/L (3.5-5.1)
[2017-05-23] MEDS: CHOLECALCIFEROL 1,000 UNIT TAB PO SCH (09:36)
[2017-05-23] MEDS: NICOTINE (21 MG/24 HR) PATCH TRANSDERM SCH (09:37)
[2017-05-23] MEDS: HEPARIN 5,000 UNIT/0.5 ML VIAL SC SCH ×2 (09:45→22:44)
[2017-05-23] MEDS: SOD CHLORIDE 0.45% 1,000 ML IV SCH ×2 (10:09→23:28)
--- NOTE | 2017-05-23 10:27 | PN ---
Date/Time of Note Date/Time of Note DATE: 05/23/17 TIME: 10:24 Assessment/Plan VTE Prophylaxis VTE Prophylaxis Intervention: heparin Lines/Catheters IV [facility] Peripheral IV Assessment/Plan Chief Complaint/Hosp Course ASSESSMENT AND PLAN: 72-year-old male with past medical history of chronic obstructive pulmonary disease (COPD), high cholesterol, hypertension, and positive smoking history, presents with shortness of breath and weakness, likely secondary to chronic obstructive pulmonary disease (COPD) exacerbation. 1. Shortness of breath. Again, likely secondary to chronic obstructive pulmonary disease (COPD) exacerbation-slowly improving. Continue - breathing treatments every 4 hours prn DuoNeb, and IV steroids 80 mg of Solu-Medrol every 8 hours for now. Levaquin every day as well. -Appreciate pulmonary consult given results of CT scan of the chest, for now when patient is more medically stable will need to undergo biopsy for lung nodule found. -pro-air HFA inhaled every 4 hours as needed and also guaifenesin and Cepastat prn 2. Essential hypertension. Blood pressure is stable. For now he will get hydralazine as needed. 3. History of high cholesterol - f/ulipid panel. 4. History of prior epididymitis. No present issues. Continue monitor for now. 5. Deep venous thrombosis (DVT) prophylaxis. Put on heparin subcutaneous. 6. smoking cessation - nicotine patch Problems: Subjective 24 Hr Interval Summary Free Text/Dictation Seen by pulmonary team yesterday. Less shortness of breath presently, no acute events overnight. Exam/Review of Systems Vital Signs Vitals Vital Signs Date Time Temp Pulse Resp B/P Pulse Ox O2 Delivery O2 Flow Rate FiO2 05/23/17 08:13 74 16 93 21 05/23/17 07:43 98.4 133/60 05/21/17 20:15 Nasal Cannula Intake and Output 05/22/17 05/22/17 05/23/17 15:00 23:00 07:00 Intake Total 150 ml 1740 ml 625 ml Output Total 825 ml 850 ml Balance 150 ml 915 ml -225 ml Exam GENERAL: The patient lying in bed, answers questions appropriately, no acute distress. HEENT: Pupils equal, round, reactive to light. Extraocular muscles intact. NECK: Supple. No thyromegaly. LUNGS: Clear to auscultation bilaterally, no rhonchi. CARDIAC: S1, S2 heard. No rubs or gallops. ABDOMEN: Soft, nontender, nondistended. Normal bowel sounds. No rebound or guarding. MUSCULOSKELETAL: Normal lower extremity bilaterally. NEUROLOGIC: No focal deficits. Results Result Diagram: 05/23/17 0738 05/23/17 0738 Results 24 hrs Laboratory Tests Test 05/23/17 07:38 White Blood Count 13.3 H Red Blood Count 4.06 L Hemoglobin 12.2 L Hematocrit 36.7 L Mean Corpuscular Volume 90.4 Mean Corpuscular Hemoglobin 30.0 Mean Corpuscular Hemoglobin Concent 33.2 Red Cell Distribution Width 14.4 Platelet Count 218 Mean Platelet Volume 11.9 H Neutrophils % 89.0 H Lymphocytes % 4.7 L Monocytes % 4.8 Eosinophils % 0.0 Basophils % 0.1 Nucleated Red Blood Cells % 0.0 Neutrophils # 11.9 H Lymphocytes # 0.6 L Monocytes # 0.6 Eosinophils # 0.0 Basophils # 0.0 Nucleated Red Blood Cells # 0.0 Sodium Level 137 Potassium Level 4.1 Chloride Level 107 Carbon Dioxide Level 24 Anion Gap 10 Blood Urea Nitrogen 20 Creatinine 0.82 Glucose Level 125 # Calcium Level 9.0 Medications Medications Current Medications Ondansetron HCl (Zofran Inj) 4 mg Q6H PRN IV NAUSEA AND/OR VOMITING; Start 05/27 at 15:30 Acetaminophen (Tylenol Tab) 650 mg Q6H PRN PO PAIN LEVEL 1-3 OR FEVER; Start 05/20/17 at 15:30 Acetaminophen/ Hydrocodone Bitart ([place] (5/325)) 1 tab Q6H PRN PO MODERATE PAIN LEVEL 4-6; Start 05/20/17 at 15:30 Morphine Sulfate (morphine) 2 mg Q4H PRN IV SEVERE PAIN LEVEL 7-10; Start 05/27 at 15:30 Docusate Sodium (Colace) 100 mg Q12H PRN PO CONSTIPATION; Start 05/20/17 at 15 :30 Magnesium Hydroxide (Milk Of Mag) 30 ml DAILY PRN PO CONSTIPATION; Start 05/20 at 15:30 Sodium Biphosphate/ Sodium Phosphate (Fleet Enema) 133 ml DAILY PRN [place] CONSTIPATION; Start 05/20/17 at 15:30 Heparin Sodium (Porcine) 5000 unit 5,000 unit Q12 SC Last administered on 05/23 09:45; Admin Dose 5,000 UNIT; Start 05/20/17 at 21:00 Sodium Chloride (1/2 NS) 1,000 ml @ 75 mls/hr [id number] IV Last administered on 05/23/17 10:09; Admin Dose 75 MLS/HR; Start 05/20/17 at 15:15 Lorazepam 0.5 mg 0.5 mg Q6H PRN IV ANXIETY Last administered on 05/22/17 23: 34; Admin Dose 0.5 MG; Start 05/20/17 at 15:30 Levofloxacin/ Dextrose (Levaquin 750 Mg/ D5W 150 ml (Pmx)) 150 ml @ 100 mls/hr Q24H IVPB Last administered on 05/22/17 12:58; Admin Dose 100 MLS/HR; Start 05/21/17 at 14:00 Hydralazine HCl (Apresoline) 10 mg Q6H PRN IV ELEVATED BLOOD PRESSURE; Start 05/20/17 at 15:30 Clonidine (Catapres) 0.1 mg Q6H PRN PO ELEVATED BLOOD PRESSURE; Start at 15:30 Nitroglycerin (Nitroglycerin (Sl Tab) 0.4 Mg) 1 tab Q5M PRN SL ANGINA; Start 05/20/17 at 15:30 Cholecalciferol (Vitamin D) 3,000 unit DAILY PO Last administered on 09:36; Admin Dose 3,000 UNIT; Start 05/21/17 at 09:00 Montelukast Sodium (Singulair) 10 mg QHS PO Last administered on 05/22/17 20: 33; Admin Dose 10 MG; Start 05/20/17 at 21:00 Phenol (Cepastat Lozenge) 1 lozenge Q1H PRN MT COUGH Last administered on 05/22 12:56; Admin Dose 1 LOZENGE; Start 05/20/17 at 16:00 Nicotine (Nicoderm 21 Mg/ 24hr) 1 patch DAILY TRANSDERM Last administered on 09:37; Admin Dose 1 PATCH; Start 05/20/17 at 18:00 Nicotine Polacrilex (Nicorette) 4 mg Q2H PRN BUCCAL SHORTNESS OF BREATH Last administered on 05/22/17 12:55; Admin Dose 4 MG; Start 05/22/17 at 12:00 Phenol (Cepastat Lozenge) 1 lozenge Q1H PRN MT COUGH; Start 05/22/17 at 12:00 Guaifenesin (Robitussin Liquid Cup) 200 mg Q4H PRN PO COUGH; Start 05/22/17 at 12:00 Methylprednisolone Sodium Succinate (Solu-Medrol) 80 mg Q6 IV Last administered on 05/23/17 05:58; Admin Dose 80 MG; Start 05/22/17 at 18:00 MELIDA FRANCISCO May 23, 2017 10:27
--- NOTE | 2017-05-23 11:46 | CONS ---
Date/Time of Note Date/Time of Note DATE: 05/23/17 TIME: 11:44 Assessment/Plan Assessment/Plan Additional Assessment/Plan Assessment and recommendations; 1. Patient admitted with severe COPD exacerbation and acute bronchitis with interval improvement. 2. History of underlying hypertension. 3. Left lower lobe 8 mm spiculated lesion which is concerning for lung malignancy. Continue current treatment. Further workup of left lower lobe lesion to be done once patient's condition improves. Consultation Date/Type/Reason Admit Date/Time May 20, 2017 at 15:03 Initial Consult Date Type of Consultation: Pulmonary 24 HR Interval Summary Free Text/Dictation Patient's condition has improved. He reports decreased wheezing. Still complains of dyspnea on minimal exertion. Complains of mild cough. Denies any sputum production. Any chest pain. General exam; elderly male, awake and alert. Currently in no distress. Exam/Review of Systems Vital Signs Vitals Vital Signs Date Time Temp Pulse Resp B/P Pulse Ox O2 Delivery O2 Flow Rate FiO2 05/23/17 08:13 74 16 93 21 05/23/17 07:43 98.4 133/60 05/21/17 20:15 Nasal Cannula Intake and Output 05/22/17 05/22/17 05/23/17 15:00 23:00 07:00 Intake Total 150 ml 1740 ml 625 ml Output Total 825 ml 850 ml Balance 150 ml 915 ml -225 ml Exam HEENT exam; supple neck, no JVD. No lymphadenopathy. Midline trachea. No thyromegaly. Pharynx is clear. Pupils are small bilaterally. Chest exam; diminished breath sounds bilaterally. No added sounds. No wheezing. S1-S2 audible, no murmurs. Regular rhythm. Abdomen exam; soft, nontender. No organomegaly. Bowel sounds audible. Extremity exam; no peripheral edema. [employer]ER exam; no focal deficit. Results Result Diagram: 05/23/1738 05/23/17737 Results 24 hrs Laboratory Tests Test 05/23/17 07:38 White Blood Count 13.3 H Red Blood Count 4.06 L Hemoglobin 12.2 L Hematocrit 36.7 L Mean Corpuscular Volume 90.4 Mean Corpuscular Hemoglobin 30.0 Mean Corpuscular Hemoglobin Concent 33.2 Red Cell Distribution Width 14.4 Platelet Count 218 Mean Platelet Volume 11.9 H Neutrophils % 89.0 H Lymphocytes % 4.7 L Monocytes % 4.8 Eosinophils % 0.0 Basophils % 0.1 Nucleated Red Blood Cells % 0.0 Neutrophils # 11.9 H Lymphocytes # 0.6 L Monocytes # 0.6 Eosinophils # 0.0 Basophils # 0.0 Nucleated Red Blood Cells # 0.0 Sodium Level 137 Potassium Level 4.1 Chloride Level 107 Carbon Dioxide Level 24 Anion Gap 10 Blood Urea Nitrogen 20 Creatinine 0.82 Glucose Level 125 # Calcium Level 9.0 Medications Medications Current Medications Ondansetron HCl (Zofran Inj) 4 mg Q6H PRN IV NAUSEA AND/OR VOMITING; Start 05/27 at 15:30 Acetaminophen (Tylenol Tab) 650 mg Q6H PRN PO PAIN LEVEL 1-3 OR FEVER; Start 05/20/17 at 15:30 Acetaminophen/ Hydrocodone Bitart ([place] (5/325)) 1 tab Q6H PRN PO MODERATE PAIN LEVEL 4-6; Start 05/20/17 at 15:30 Morphine Sulfate (morphine) 2 mg Q4H PRN IV SEVERE PAIN LEVEL 7-10; Start 05/27 at 15:30 Docusate Sodium (Colace) 100 mg Q12H PRN PO CONSTIPATION; Start 05/20/17 at 15 :30 Magnesium Hydroxide (Milk Of Mag) 30 ml DAILY PRN PO CONSTIPATION; Start 05/20 at 15:30 Sodium Biphosphate/ Sodium Phosphate (Fleet Enema) 133 ml DAILY PRN OR CONSTIPATION; Start 05/20/17 at 15:30 Heparin Sodium (Porcine) 5000 unit 5,000 unit Q12 SC Last administered on 05/23 09:45; Admin Dose 5,000 UNIT; Start 05/20/17 at 21:00 Sodium Chloride (1/2 NS) 1,000 ml @ 75 mls/hr [id number] IV Last administered on 05/23/17 10:09; Admin Dose 75 MLS/HR; Start 05/20/17 at 15:15 Lorazepam 0.5 mg 0.5 mg Q6H PRN IV ANXIETY Last administered on 05/22/17 23: 34; Admin Dose 0.5 MG; Start 05/20/17 at 15:30 Levofloxacin/ Dextrose (Levaquin 750 Mg/ D5W 150 ml (Pmx)) 150 ml @ 100 mls/hr Q24H IVPB Last administered on 05/22/17 12:58; Admin Dose 100 MLS/HR; Start 05/21/17 at 14:00 Hydralazine HCl (Apresoline) 10 mg Q6H PRN IV ELEVATED BLOOD PRESSURE; Start 05/20/17 at 15:30 Clonidine (Catapres) 0.1 mg Q6H PRN PO ELEVATED BLOOD PRESSURE; Start at 15:30 Nitroglycerin (Nitroglycerin (Sl Tab) 0.4 Mg) 1 tab Q5M PRN SL ANGINA; Start 05/20/17 at 15:30 Cholecalciferol (Vitamin D) 3,000 unit DAILY PO Last administered on 09:36; Admin Dose 3,000 UNIT; Start 05/21/17 at 09:00 Montelukast Sodium (Singulair) 10 mg QHS PO Last administered on 05/22/17 20: 33; Admin Dose 10 MG; Start 05/20/17 at 21:00 Phenol (Cepastat Lozenge) 1 lozenge Q1H PRN MT COUGH Last administered on 05/22 12:56; Admin Dose 1 LOZENGE; Start 05/20/17 at 16:00 Nicotine (Nicoderm 21 Mg/ 24hr) 1 patch DAILY TRANSDERM Last administered on 09:37; Admin Dose 1 PATCH; Start 05/20/17 at 18:00 Nicotine Polacrilex (Nicorette) 4 mg Q2H PRN BUCCAL SHORTNESS OF BREATH Last administered on 05/22/17 12:55; Admin Dose 4 MG; Start 05/22/17 at 12:00 Phenol (Cepastat Lozenge) 1 lozenge Q1H PRN MT COUGH; Start 05/22/17 at 12:00 Guaifenesin (Robitussin Liquid Cup) 200 mg Q4H PRN PO COUGH; Start 05/22/17 at 12:00 Methylprednisolone Sodium Succinate (Solu-Medrol) 80 mg Q6 IV Last administered on 05/23/17 05:58; Admin Dose 80 MG; Start 05/22/17 at 18:00 GOSIA CRAWFORD May 23, 2017 11:46
[2017-05-23] MEDS: LEVOFLOXACIN 750MG/D5W (PMX) 150 ML IVPB SCH (13:42)
[2017-05-23 14:21] VITALS: BP 132/64; RESP 20
[2017-05-23] MEDS: LORAZEPAM 2 MG INJ IV PRN ×2 (17:58→23:40)
[2017-05-23 20:00] VITALS: BP 117/81; RESP 20
[2017-05-23] MEDS: MONTELUKAST 10 MG TAB PO SCH (22:40)
[2017-05-24 02:00] VITALS: BP 132/62; RESP 20
[2017-05-24] MEDS: METHYLPREDNISOLONE 125 MG INJ IV SCH (05:36)
[2017-05-24] MEDS: LORAZEPAM 2 MG INJ IV PRN (05:43)
[2017-05-24 06:33] LABS: BASOPHILS % 0.2 % (0.0-2.0); HEMATOCRIT 37.6 % (42.0-52.0); HEMOGLOBIN 12.6 g/dl (14.0-18.0); LYMPHOCYTES # 0.8 10^3/ul (0.8-2.9); LYMPHOCYTES % 6.2 % (15.0-51.0); MEAN CORPUSCULAR HEMOGLOBIN 30.1 pg (29.0-33.0); MEAN CORPUSCULAR HGB CONC 33.5 g/dl (32.0-37.0); MONOCYTE # 0.8 10^3/ul (0.3-0.9); MONOCYTES % 6.6 % (0.0-11.0); NEUTROPHIL # 10.4 10^3/ul (1.6-7.5); NEUTROPHILS % 84.9 % (39.0-77.0); PLATELET COUNT 225 10^3/UL (140-415); RED BLOOD COUNT 4.18 10^6/ul (4.70-6.10); RED CELL DISTRIBUTION WIDTH 14.4 % (11.5-14.5); WHITE BLOOD COUNT 12.2 10^3/ul (4.8-10.8)
[2017-05-24 07:07] LABS: CREATININE 0.99 mg/dl (0.61-1.24); POTASSIUM 4.1 mmol/L (3.5-5.1)
[2017-05-24] MEDS: IPRATROPIUM (NEB) 0.5 MG/2.5 ML AMP HHN SCH ×3 (07:46→19:41)
[2017-05-24 07:53] VITALS: BP 144/65; RESP 18
[2017-05-24] MEDS: CHOLECALCIFEROL 1,000 UNIT TAB PO SCH (08:23)
[2017-05-24] MEDS: NICOTINE (21 MG/24 HR) PATCH TRANSDERM SCH (08:24)
[2017-05-24] MEDS: HEPARIN 5,000 UNIT/0.5 ML VIAL SC SCH ×2 (08:30→21:08)
--- NOTE | 2017-05-24 10:41 | CONS ---
Date/Time of Note Date/Time of Note DATE: 05/24/17 TIME: 10:41 Consultation Date/Type/Reason Admit Date/Time May 20, 2017 at 15:03 Type of Consultation: Pulmonary 24 HR Interval Summary Free Text/Dictation [id number] Exam/Review of Systems Vital Signs Vitals Vital Signs Date Time Temp Pulse Resp B/P Pulse Ox O2 Delivery O2 Flow Rate FiO2 05/24/17 07:53 97.8 53 18 144/65 92 05/24/17 07:46 21 05/21/17 20:15 Nasal Cannula Intake and Output 05/23/17 05/23/17 05/24/17 15:00 23:00 07:00 Intake Total 525 ml 1915 ml 1965 ml Output Total 1100 ml 1550 ml Balance 525 ml 815 ml 415 ml Results Result Diagram: 05/24/17 0519 05/24/17 0521 Results 24 hrs Laboratory Tests Test 05/24/17 05:19 05/24/17 05:21 White Blood Count 12.2 H Red Blood Count 4.18 L Hemoglobin 12.6 L Hematocrit 37.6 L Mean Corpuscular Volume 90.0 Mean Corpuscular Hemoglobin 30.1 Mean Corpuscular Hemoglobin Concent 33.5 Red Cell Distribution Width 14.4 Platelet Count 225 Mean Platelet Volume 12.0 H Neutrophils % 84.9 H Lymphocytes % 6.2 L Monocytes % 6.6 Eosinophils % 0.0 Basophils % 0.2 Nucleated Red Blood Cells % 0.0 Neutrophils # 10.4 H Lymphocytes # 0.8 Monocytes # 0.8 Eosinophils # 0.0 Basophils # 0.0 Nucleated Red Blood Cells # 0.0 Sodium Level 131 L Potassium Level 4.1 Chloride Level 107 Carbon Dioxide Level 26 Anion Gap 2 #L Blood Urea Nitrogen 25 H Creatinine 0.99 Glucose Level 153 Calcium Level 9.0 Medications Medications Current Medications Ondansetron HCl (Zofran Inj) 4 mg Q6H PRN IV NAUSEA AND/OR VOMITING; Start 05/27 at 15:30 Acetaminophen (Tylenol Tab) 650 mg Q6H PRN PO PAIN LEVEL 1-3 OR FEVER; Start 05/20/17 at 15:30 Acetaminophen/ Hydrocodone Bitart ([place] (5/325)) 1 tab Q6H PRN PO MODERATE PAIN LEVEL 4-6; Start 05/20/17 at 15:30 Morphine Sulfate (morphine) 2 mg Q4H PRN IV SEVERE PAIN LEVEL 7-10; Start 05/27 at 15:30 Docusate Sodium (Colace) 100 mg Q12H PRN PO CONSTIPATION; Start 05/20/17 at 15 :30 Magnesium Hydroxide (Milk Of Mag) 30 ml DAILY PRN PO CONSTIPATION; Start 05/20 at 15:30 Sodium Biphosphate/ Sodium Phosphate (Fleet Enema) 133 ml DAILY PRN [place] CONSTIPATION; Start 05/20/17 at 15:30 Heparin Sodium (Porcine) 5000 unit 5,000 unit Q12 SC Last administered on 05/24 08:30; Admin Dose 5,000 UNIT; Start 05/20/17 at 21:00 Sodium Chloride (1/2 NS) 1,000 ml @ 75 mls/hr [id number] IV Last administered on 05/23/17 23:28; Admin Dose 75 MLS/HR; Start 05/20/17 at 15:15 Lorazepam 0.5 mg 0.5 mg Q6H PRN IV ANXIETY Last administered on 05/24/17 05: 43; Admin Dose 0.5 MG; Start 05/20/17 at 15:30 Levofloxacin/ Dextrose (Levaquin 750 Mg/ D5W 150 ml (Pmx)) 150 ml @ 100 mls/hr Q24H IVPB Last administered on 05/23/17 13:42; Admin Dose 100 MLS/HR; Start 05/21/17 at 14:00 Hydralazine HCl (Apresoline) 10 mg Q6H PRN IV ELEVATED BLOOD PRESSURE; Start 05/20/17 at 15:30 Clonidine (Catapres) 0.1 mg Q6H PRN PO ELEVATED BLOOD PRESSURE; Start at 15:30 Nitroglycerin (Nitroglycerin (Sl Tab) 0.4 Mg) 1 tab Q5M PRN SL ANGINA; Start 05/20/17 at 15:30 Cholecalciferol (Vitamin D) 3,000 unit DAILY PO Last administered on 08:23; Admin Dose 3,000 UNIT; Start 05/21/17 at 09:00 Montelukast Sodium (Singulair) 10 mg QHS PO Last administered on 05/23/17 22: 40; Admin Dose 10 MG; Start 05/20/17 at 21:00 Phenol (Cepastat Lozenge) 1 lozenge Q1H PRN MT COUGH Last administered on 05/22 12:56; Admin Dose 1 LOZENGE; Start 05/20/17 at 16:00 Nicotine (Nicoderm 21 Mg/ 24hr) 1 patch DAILY TRANSDERM Last administered on 08:24; Admin Dose 1 PATCH; Start 05/20/17 at 18:00 Nicotine Polacrilex (Nicorette) 4 mg Q2H PRN BUCCAL SHORTNESS OF BREATH Last administered on 05/22/17 12:55; Admin Dose 4 MG; Start 05/22/17 at 12:00 Phenol (Cepastat Lozenge) 1 lozenge Q1H PRN MT COUGH; Start 05/22/17 at 12:00 Guaifenesin (Robitussin Liquid Cup) 200 mg Q4H PRN PO COUGH; Start 05/22/17 at 12:00 Methylprednisolone Sodium Succinate (Solu-Medrol) 80 mg Q6 IV Last administered on 05/24/17 05:36; Admin Dose 80 MG; Start 05/22/17 at 18:00 GOSIA CRAWFORD May 24, 2017 10:41
--- NOTE | 2017-05-24 11:44 | PN ---
Date/Time of Note Date/Time of Note DATE: 05/24/17 TIME: 11:42 Assessment/Plan VTE Prophylaxis VTE Prophylaxis Intervention: heparin Lines/Catheters IV [facility]from [facility] Peripheral IV Assessment/Plan Chief Complaint/Hosp Course ASSESSMENT AND PLAN: 72-year-old male with past medical history of chronic obstructive pulmonary disease (COPD), high cholesterol, hypertension, and positive smoking history, presents with shortness of breath and weakness, likely secondary to chronic obstructive pulmonary disease (COPD) exacerbation. 1. Shortness of breath. Again, likely secondary to chronic obstructive pulmonary disease (COPD) exacerbation-slowly improving. Continue - breathing treatments every 4 hours prn DuoNeb, and IV steroids Solu-Medrol , Levaquin every day as well. -Appreciate pulmonary consult given results of CT scan of the chest, for now when patient is more medically stable will need to undergo biopsy for lung nodule found. -pro-air HFA inhaled every 4 hours as needed and also guaifenesin and Cepastat prn 2. Essential hypertension. Blood pressure is stable. hydralazine as needed. 3. History of high cholesterol - f/ulipid panel. 4. History of prior epididymitis. No present issues. Continue monitor for now. 5. Deep venous thrombosis (DVT) prophylaxis- heparin subcutaneous. 6. smoking cessation - nicotine patch, gum Problems: Subjective 24 Hr Interval Summary Free Text/Dictation Shortness of breath, no acute events overnight. Exam/Review of Systems Vital Signs Vitals Vital Signs Date Time Temp Pulse Resp B/P Pulse Ox O2 Delivery O2 Flow Rate FiO2 05/24/17 07:53 97.8 53 18 144/65 92 05/24/17 07:46 21 05/21/17 20:15 Nasal Cannula Intake and Output 05/23/17 05/23/17 05/24/17 15:00 23:00 07:00 Intake Total 525 ml 1915 ml 1965 ml Output Total 1100 ml 1550 ml Balance 525 ml 815 ml 415 ml Exam GENERAL: The patient lying in bed, answers questions appropriately, no acute distress. HEENT: Pupils equal, round, reactive to light. Extraocular muscles intact. NECK: Supple. No thyromegaly. LUNGS: Clear to auscultation bilaterally, no rhonchi. CARDIAC: S1, S2 heard. No rubs or gallops. ABDOMEN: Soft, nontender, nondistended. Normal bowel sounds. No rebound or guarding. MUSCULOSKELETAL: Normal lower extremity bilaterally. NEUROLOGIC: No focal deficits. Results Result Diagram: 05/24/17 0519 05/24/17 05 Results 24 hrs Laboratory Tests Test 05/24/17 05:19 05/24/17 05:21 White Blood Count 12.2 H Red Blood Count 4.18 L Hemoglobin 12.6 L Hematocrit 37.6 L Mean Corpuscular Volume 90.0 Mean Corpuscular Hemoglobin 30.1 Mean Corpuscular Hemoglobin Concent 33.5 Red Cell Distribution Width 14.4 Platelet Count 225 Mean Platelet Volume 12.0 H Neutrophils % 84.9 H Lymphocytes % 6.2 L Monocytes % 6.6 Eosinophils % 0.0 Basophils % 0.2 Nucleated Red Blood Cells % 0.0 Neutrophils # 10.4 H Lymphocytes # 0.8 Monocytes # 0.8 Eosinophils # 0.0 Basophils # 0.0 Nucleated Red Blood Cells # 0.0 Sodium Level 131 L Potassium Level 4.1 Chloride Level 107 Carbon Dioxide Level 26 Anion Gap 2 #L Blood Urea Nitrogen 25 H Creatinine 0.99 Glucose Level 153 Calcium Level 9.0 Medications Medications Current Medications Ondansetron HCl (Zofran Inj) 4 mg Q6H PRN IV NAUSEA AND/OR VOMITING; Start 05/27 at 15:30 Acetaminophen (Tylenol Tab) 650 mg Q6H PRN PO PAIN LEVEL 1-3 OR FEVER; Start 05/20/17 at 15:30 Acetaminophen/ Hydrocodone Bitart ([place] (5/325)) 1 tab Q6H PRN PO MODERATE PAIN LEVEL 4-6; Start 05/20/17 at 15:30 Morphine Sulfate (morphine) 2 mg Q4H PRN IV SEVERE PAIN LEVEL 7-10; Start 05/27 at 15:30 Docusate Sodium (Colace) 100 mg Q12H PRN PO CONSTIPATION; Start 05/20/17 at 15 :30 Magnesium Hydroxide (Milk Of Mag) 30 ml DAILY PRN PO CONSTIPATION; Start 05/20 at 15:30 Sodium Biphosphate/ Sodium Phosphate (Fleet Enema) 133 ml DAILY PRN [place] CONSTIPATION; Start 05/20/17 at 15:30 Heparin Sodium (Porcine) 5000 unit 5,000 unit Q12 SC Last administered on 05/24t 08:30; Admin Dose 5,000 UNIT; Start 05/20/17 at 21:00 Sodium Chloride (1/2 NS) 1,000 ml @ 75 mls/hr [id number] IV Last administered on 05/23/17 23:28; Admin Dose 75 MLS/HR; Start 05/20/17 at 15:15 Lorazepam 0.5 mg 0.5 mg Q6H PRN IV ANXIETY Last administered on 05/24/17 05: 43; Admin Dose 0.5 MG; Start 05/20/17 at 15:30 Levofloxacin/ Dextrose (Levaquin 750 Mg/ D5W 150 ml (Pmx)) 150 ml @ 100 mls/hr Q24H IVPB Last administered on 05/23/17 13:42; Admin Dose 100 MLS/HR; Start 05/21/17 at 14:00 Hydralazine HCl (Apresoline) 10 mg Q6H PRN IV ELEVATED BLOOD PRESSURE; Start 05/20/17 at 15:30 Clonidine (Catapres) 0.1 mg Q6H PRN PO ELEVATED BLOOD PRESSURE; Start at 15:30 Nitroglycerin (Nitroglycerin (Sl Tab) 0.4 Mg) 1 tab Q5M PRN SL ANGINA; Start 05/20/17 at 15:30 Cholecalciferol (Vitamin D) 3,000 unit DAILY PO Last administered on 08:23; Admin Dose 3,000 UNIT; Start 05/21/17 at 09:00 Montelukast Sodium (Singulair) 10 mg QHS PO Last administered on 05/23/17 22: 40; Admin Dose 10 MG; Start 05/20/17 at 21:00 Phenol (Cepastat Lozenge) 1 lozenge Q1H PRN MT COUGH Last administered on 05/22 12:56; Admin Dose 1 LOZENGE; Start 05/20/17 at 16:00 Nicotine (Nicoderm 21 Mg/ 24hr) 1 patch DAILY TRANSDERM Last administered on 08:24; Admin Dose 1 PATCH; Start 05/20/17 at 18:00 Nicotine Polacrilex (Nicorette) 4 mg Q2H PRN BUCCAL SHORTNESS OF BREATH Last administered on 05/22/17 12:55; Admin Dose 4 MG; Start 05/22/17 at 12:00 Phenol (Cepastat Lozenge) 1 lozenge Q1H PRN MT COUGH; Start 05/22/17 at 12:00 Guaifenesin (Robitussin Liquid Cup) 200 mg Q4H PRN PO COUGH; Start 05/22/17 at 12:00 Methylprednisolone Sodium Succinate (Solu-Medrol) 40 mg Q6 IV ; Start 05/24/17 at 12:00 MELIDA FRANCISCO May 24, 2017 11:44
[2017-05-24] MEDS: METHYLPREDNISOLONE 40 MG INJ IV SCH ×3 (13:06→23:53)
[2017-05-24] MEDS: SOD CHLORIDE 0.45% 1,000 ML IV SCH (13:06)
[2017-05-24 13:59] VITALS: BP 150/67; RESP 24
[2017-05-24] MEDS: LEVOFLOXACIN 750MG/D5W (PMX) 150 ML IVPB SCH (14:25)
--- NOTE | 2017-05-24 14:41 | CONS ---
DATE OF ADMISSION: 05/20/2017 DATE OF CONSULTATION: 05/24/2017 PULMONARY CARE PROGRESS NOTE The patient's condition is stable. He is reporting improving shortness of breath but is complaining of a dry throat and wheezing has resolved. Complains of dyspnea on minimal exertion. Denies any c hest pain. PHYSICAL EXAMINATION: GENERAL: He male, awake, alert, currently in no distress. VITAL SIGNS: Temperature is 97.8 degrees Fahrenheit, respiratory rate is 18 per minute, heart rate 68 per minute, blood pressure 130/62, O2 sat 92%. HEENT: Supple neck, no JVD, no lymphadenopathy, midline trachea, no thyromegaly. Pharynx clear, no neck bruits. Pupils are small bilaterally. The patient is edentulous and wears dentures. CHEST: Diminished but clear breath sounds. HEART: S1, S2 audible. No murmurs, regular rhythm. ABDOMEN: Soft, nontender, nondistended. Bowel sounds audible. EXTREMITIES: No edema, no clubbing. Pulses 2+ bilaterally. NEUROLOGIC: No focal deficit. LABORATORY DATA: Today, white count is 12.2, hemoglobin 12.6, platelet count of 225. Sodium 131, p otassium 4.1, chloride 107, bicarbonate of 26, BUN 25, creatinine 0.9. MEDICATIONS: Were reviewed. The patient is currently on: 1. Levaquin 750 mg IV daily. 2. Normal saline at 75 mL hour. 3. DuoNeb q.6h. 4. Clonidine on a p.r.n. basis. 5. Colace on a p.r.n. basis. 6. Subcutaneous Heparin 5000 units q.12h. 7. Hydrocodone on a p.r.n. basis. 8. Singulair 10 mg a day. 9. Nicotine patch 21 mg daily. 10. Solu-Medrol 80 mg q.6h. ASSESSMENT AND PLAN: 1. Patient admitted with severe chronic obstructive pulmonary disease exacerbation and acute bronch itis with interval improvement. 2. Spiculated 8 to 9 mm lesion in the left lower lobe suspicious for bronchogenic carcinoma. 3. History of hypertension. RECOMMENDATIONS: 1. Continue current treatment. Decrease Solu-Medrol to 40 mg q.6h. 2. Workup if all the left lower lobe lung mass to be determined once the patient is clinically stab le as it will certainly require biopsy and the patient's current pulmonary status is insufficient to allow that. This was discussed with the patient in detail. Dictated By: GOSIA GALLAGHER/JORGE L Conf#: [id number] DID#: [id number]
[2017-05-24] MEDS: ALBUTEROL/IPRATROPIUM (NEB) 3 ML AMP HHN PRN ×2 (17:59→23:21)
[2017-05-24 19:33] VITALS: BP 128/61; RESP 18
[2017-05-24] MEDS: MONTELUKAST 10 MG TAB PO SCH (20:57)
[2017-05-24] MEDS: GUAIFENESIN 20 MG/ML 5ML CUP PO PRN (20:58)
[2017-05-24] MEDS ORDERED: ZOLPIDEM 5 MG TAB PO SCH (21:00)
[2017-05-25] MEDS: IPRATROPIUM (NEB) 0.5 MG/2.5 ML AMP HHN SCH ×6 (01:37→22:30)
[2017-05-25] MEDS: LORAZEPAM 2 MG INJ IV PRN ×2 (01:57→09:11)
[2017-05-25] MEDS: SOD CHLORIDE 0.45% 1,000 ML IV SCH ×3 (01:57→14:42)
[2017-05-25 02:00] VITALS: BP 143/70; RESP 20
[2017-05-25] MEDS: METHYLPREDNISOLONE 40 MG INJ IV SCH ×4 (05:25→22:50)
[2017-05-25 06:06] LABS: BASOPHILS % 0.2 % (0.0-2.0); HEMATOCRIT 37.9 % (42.0-52.0); HEMOGLOBIN 12.4 g/dl (14.0-18.0); LYMPHOCYTES # 0.9 10^3/ul (0.8-2.9); LYMPHOCYTES % 7.3 % (15.0-51.0); MEAN CORPUSCULAR HEMOGLOBIN 29.3 pg (29.0-33.0); MEAN CORPUSCULAR HGB CONC 32.7 g/dl (32.0-37.0); MEAN CORPUSCULAR VOLUME 89.6 fl (82.0-101.0); MEAN PLATELET VOLUME 11.7 fl (7.4-10.4); MONOCYTE # 1.1 10^3/ul (0.3-0.9); MONOCYTES % 8.9 % (0.0-11.0); NEUTROPHIL # 9.4 10^3/ul (1.6-7.5); PLATELET COUNT 233 10^3/UL (140-415); RED BLOOD COUNT 4.23 10^6/ul (4.70-6.10); RED CELL DISTRIBUTION WIDTH 14.6 % (11.5-14.5); WHITE BLOOD COUNT 11.9 10^3/ul (4.8-10.8)
[2017-05-25 06:54] LABS: CALCIUM 8.5 mg/dl (8.4-10.2); CREATININE 0.92 mg/dl (0.61-1.24); POTASSIUM 4.3 mmol/L (3.5-5.1)
[2017-05-25 07:44] VITALS: BP 128/57; RESP 18
[2017-05-25] MEDS: CHOLECALCIFEROL 1,000 UNIT TAB PO SCH (08:54)
[2017-05-25] MEDS: NICOTINE (21 MG/24 HR) PATCH TRANSDERM SCH (08:55)
[2017-05-25] MEDS: HEPARIN 5,000 UNIT/0.5 ML VIAL SC SCH ×2 (09:00→21:12)
[2017-05-25] MEDS: ALBUTEROL/IPRATROPIUM (NEB) 3 ML AMP HHN PRN (09:06)
--- NOTE | 2017-05-25 09:12 | PN ---
Date/Time of Note Date/Time of Note DATE: 05/25/17 TIME: 09:11 Assessment/Plan VTE Prophylaxis VTE Prophylaxis Intervention: heparin Lines/Catheters IV [facility]): Peripheral IV Assessment/Plan Chief Complaint/Hosp Course ASSESSMENT AND PLAN: 72-year-old male with past medical history of chronic obstructive pulmonary disease (COPD), high cholesterol, hypertension, and positive smoking history, presents with shortness of breath and weakness, likely secondary to chronic obstructive pulmonary disease (COPD) exacerbation. 1. Shortness of breath. Again, likely secondary to chronic obstructive pulmonary disease (COPD) exacerbation-slowly improvin -For now breathing treatments every 4 hours prn DuoNeb, and IV steroids Solu -Medrol, Levaquin every day as well. -Appreciate pulmonary consult given results of CT scan of the chest, for now when patient is more medically stable will need to undergo biopsy for lung nodule found. -pro-air HFA inhaled every 4 hours as needed and also guaifenesin and Cepastat prn 2. Essential hypertension. Blood pressure is stable. hydralazine as needed. 3. History of high cholesterol - f/ulipid panel. 4. History of prior epididymitis. No present issues. Continue monitor for now. 5. Deep venous thrombosis (DVT) prophylaxis- heparin subcutaneous. 6. smoking cessation - nicotine patch, gum Problems: Subjective 24 Hr Interval Summary Free Text/Dictation Patient took Ambien last night but per nursing staff did not get good night sleep, otherwise no present shortness of breath. Exam/Review of Systems Vital Signs Vitals Vital Signs Date Time Temp Pulse Resp B/P Pulse Ox O2 Delivery O2 Flow Rate FiO2 05/25/17 09:07 61 20 94 21 05/25/17 07:44 97.8 128/57 05/21/17 20:15 Nasal Cannula Intake and Output 05/24/17 05/24/17 05/25/17 15:00 23:00 07:00 Intake Total 580 ml 1400 ml 1125 ml Output Total 1400 ml 1000 ml Balance 580 ml 0 ml 125 ml Exam GENERAL: The patient lying in bed, answers questions appropriately, no acute distress. HEENT: Pupils equal, round, reactive to light. Extraocular muscles intact. NECK: Supple. No thyromegaly. LUNGS: Clear to auscultation bilaterally, no rhonchi. CARDIAC: S1, S2 heard. No rubs or gallops. ABDOMEN: Soft, nontender, nondistended. Normal bowel sounds. No rebound or guarding. MUSCULOSKELETAL: Normal lower extremity bilaterally. NEUROLOGIC: No focal deficits. Results Result Diagram: 05/25/17 0519 05/25/17 0522 Results 24 hrs Laboratory Tests Test 05/25/17 05:19 05/25/17 05:22 White Blood Count 11.9 H Red Blood Count 4.23 L Hemoglobin 12.4 L Hematocrit 37.9 L Mean Corpuscular Volume 89.6 Mean Corpuscular Hemoglobin 29.3 Mean Corpuscular Hemoglobin Concent 32.7 Red Cell Distribution Width 14.6 H Platelet Count 233 Mean Platelet Volume 11.7 H Neutrophils % 79.0 H Lymphocytes % 7.3 L Monocytes % 8.9 Eosinophils % 0.0 Basophils % 0.2 Nucleated Red Blood Cells % 0.0 Neutrophils # 9.4 H Lymphocytes # 0.9 Monocytes # 1.1 H Eosinophils # 0.0 Basophils # 0.0 Nucleated Red Blood Cells # 0.0 Sodium Level 138 Potassium Level 4.3 Chloride Level 107 Carbon Dioxide Level 24 Anion Gap 11 Blood Urea Nitrogen 24 H Creatinine 0.92 Glucose Level 120 Calcium Level 8.5 Medications Medications Current Medications Ondansetron HCl (Zofran Inj) 4 mg Q6H PRN IV NAUSEA AND/OR VOMITING; Start 05/27 at 15:30 Acetaminophen (Tylenol Tab) 650 mg Q6H PRN PO PAIN LEVEL 1-3 OR FEVER; Start 05/20/17 at 15:30 Acetaminophen/ Hydrocodone Bitart ([place] (5/325)) 1 tab Q6H PRN PO MODERATE PAIN LEVEL 4-6 Last administered on 05/24/17t 20:57; Admin Dose 1 TAB; Start 05/20/17 at 15:30 Morphine Sulfate (morphine) 2 mg Q4H PRN IV SEVERE PAIN LEVEL 7-10; Start 05/27 at 15:30 Docusate Sodium (Colace) 100 mg Q12H PRN PO CONSTIPATION; Start 05/20/17 at 15 :30 Magnesium Hydroxide (Milk Of Mag) 30 ml DAILY PRN PO CONSTIPATION; Start 05/20 at 15:30 Sodium Biphosphate/ Sodium Phosphate (Fleet Enema) 133 ml DAILY PRN [place] CONSTIPATION; Start 05/20/17 at 15:30 Heparin Sodium (Porcine) 5000 unit 5,000 unit Q12 SC Last administered on 05/25 09:00; Admin Dose 5,000 UNIT; Start 05/20/17 at 21:00 Sodium Chloride (1/2 NS) 1,000 ml @ 75 mls/hr [id number] IV Last administered on 05/25/17 01:57; Admin Dose 75 MLS/HR; Start 05/20/17 at 15:15 Lorazepam 0.5 mg 0.5 mg Q6H PRN IV ANXIETY Last administered on 05/25/17 01: 57; Admin Dose 0.5 MG; Start 05/20/17 at 15:30 Levofloxacin/ Dextrose (Levaquin 750 Mg/ D5W 150 ml (Pmx)) 150 ml @ 100 mls/hr Q24H IVPB Last administered on 05/24/17 14:25; Admin Dose 100 MLS/HR; Start 05/21/17 at 14:00 Hydralazine HCl (Apresoline) 10 mg Q6H PRN IV ELEVATED BLOOD PRESSURE; Start 05/20/17 at 15:30 Clonidine (Catapres) 0.1 mg Q6H PRN PO ELEVATED BLOOD PRESSURE; Start at 15:30 Nitroglycerin (Nitroglycerin (Sl Tab) 0.4 Mg) 1 tab Q5M PRN SL ANGINA; Start 05/20/17 at 15:30 Cholecalciferol (Vitamin D) 3,000 unit DAILY PO Last administered on 08:54; Admin Dose 3,000 UNIT; Start 05/21/17 at 09:00 Montelukast Sodium (Singulair) 10 mg QHS PO Last administered on 05/24/17 20: 57; Admin Dose 10 MG; Start 05/20/17 at 21:00 Phenol (Cepastat Lozenge) 1 lozenge Q1H PRN MT COUGH Last administered on 05/22 12:56; Admin Dose 1 LOZENGE; Start 05/20/17 at 16:00 Nicotine (Nicoderm 21 Mg/ 24hr) 1 patch DAILY TRANSDERM Last administered on 08:55; Admin Dose 1 PATCH; Start 05/20/17 at 18:00 Nicotine Polacrilex (Nicorette) 4 mg Q2H PRN BUCCAL SHORTNESS OF BREATH Last administered on 05/22/17 12:55; Admin Dose 4 MG; Start 05/22/17 at 12:00 Phenol (Cepastat Lozenge) 1 lozenge Q1H PRN MT COUGH; Start 05/22/17 at 12:00 Guaifenesin (Robitussin Liquid Cup) 200 mg Q4H PRN PO COUGH Last administered on 05/24/17 20:58; Admin Dose 200 MG; Start 05/22/17 at 12:00 Methylprednisolone Sodium Succinate (Solu-Medrol) 40 mg Q6 IV Last administered on 05/25/17 05:25; Admin Dose 40 MG; Start 05/24/17 at 12:00 Zolpidem Tartrate (Ambien) 5 mg HS PO Last administered on 05/24/17 20:57; Admin Dose 5 MG; Start 05/24/17 at 21:00 MELIDA FRANCISCO May 25, 2017 09:12
--- NOTE | 2017-05-25 11:11 | CONS ---
Date/Time of Note Date/Time of Note DATE: 05/25/17 TIME: 11:09 Assessment/Plan Assessment/Plan Additional Assessment/Plan Assessment and recommendations; 1. Patient admitted with severe COPD exacerbation and acute bronchitis with interval improvement. 2. Left lower lobe 8 mm spiculated lesion which is highly concerning for primary bronchogenic carcinoma. 3. History of hypertension. Continue current treatment. Further workup regarding left lower lung lesion will depend upon patient's improvement in respiratory status. Consultation Date/Type/Reason Admit Date/Time May 20, 2017 at 15:03 Type of Consultation: Pulmonary 24 HR Interval Summary Free Text/Dictation Patient's condition is gradually improving. He reports slightly improved shortness of breath. Denies any chest pain. Complains of dyspnea on exertion. General exam; elderly male, awake alert, currently in no distress. Exam/Review of Systems Vital Signs Vitals Vital Signs Date Time Temp Pulse Resp B/P Pulse Ox O2 Delivery O2 Flow Rate FiO2 05/25/17 09:07 61 20 94 21 05/25/17 07:44 97.8 128/57 05/21/17 20:15 Nasal Cannula Intake and Output 05/24/17 05/24/17 05/25/17 15:00 23:00 07:00 Intake Total 580 ml 1400 ml 1125 ml Output Total 1400 ml 1000 ml Balance 580 ml 0 ml 125 ml Exam HEENT exam; supple neck, no JVD. No lymphadenopathy. Midline trachea. No thyromegaly. Patient is edentulous and wears dentures. Chest exam; diminished breath sounds throughout. No added sound. S1-S2 audible , no murmurs. Regular rhythm. Abdomen exam; soft, nontender. No organomegaly. Bowel sounds audible. Extremity exam; no peripheral edema. No clubbing. 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 Results Result Diagram: 05/25/17 0519 05/25/17 0522 Results 24 hrs Laboratory Tests Test 05/25/17 05:19 05/25/17 05:22 White Blood Count 11.9 H Red Blood Count 4.23 L Hemoglobin 12.4 L Hematocrit 37.9 L Mean Corpuscular Volume 89.6 Mean Corpuscular Hemoglobin 29.3 Mean Corpuscular Hemoglobin Concent 32.7 Red Cell Distribution Width 14.6 H Platelet Count 233 Mean Platelet Volume 11.7 H Neutrophils % 79.0 H Lymphocytes % 7.3 L Monocytes % 8.9 Eosinophils % 0.0 Basophils % 0.2 Nucleated Red Blood Cells % 0.0 Neutrophils # 9.4 H Lymphocytes # 0.9 Monocytes # 1.1 H Eosinophils # 0.0 Basophils # 0.0 Nucleated Red Blood Cells # 0.0 Sodium Level 138 Potassium Level 4.3 Chloride Level 107 Carbon Dioxide Level 24 Anion Gap 11 Blood Urea Nitrogen 24 H Creatinine 0.92 Glucose Level 120 Calcium Level 8.5 Medications Medications Current Medications Ondansetron HCl (Zofran Inj) 4 mg Q6H PRN IV NAUSEA AND/OR VOMITING; Start 05/27 at 15:30 Acetaminophen (Tylenol Tab) 650 mg Q6H PRN PO PAIN LEVEL 1-3 OR FEVER; Start 05/20/17 at 15:30 Acetaminophen/ Hydrocodone Bitart ([place] (5/325)) 1 tab Q6H PRN PO MODERATE PAIN LEVEL 4-6 Last administered on 05/24/17 20:57; Admin Dose 1 TAB; Start 05/20/17 at 15:30 Morphine Sulfate (morphine) 2 mg Q4H PRN IV SEVERE PAIN LEVEL 7-10; Start 05/27 at 15:30 Docusate Sodium (Colace) 100 mg Q12H PRN PO CONSTIPATION; Start 05/20/17 at 15 :30 Magnesium Hydroxide (Milk Of Mag) 30 ml DAILY PRN PO CONSTIPATION; Start 05/20 at 15:30 Sodium Biphosphate/ Sodium Phosphate (Fleet Enema) 133 ml DAILY PRN [place] CONSTIPATION; Start 05/20/17 at 15:30 Heparin Sodium (Porcine) 5000 unit 5,000 unit Q12 SC Last administered on 05/25 09:00; Admin Dose 5,000 UNIT; Start 05/20/17 at 21:00 Sodium Chloride (1/2 NS) 1,000 ml @ 75 mls/hr [id number] IV Last administered on 05/25/17 01:57; Admin Dose 75 MLS/HR; Start 05/20/17 at 15:15 Lorazepam 0.5 mg 0.5 mg Q6H PRN IV ANXIETY Last administered on 05/25/17 09: 11; Admin Dose 0.5 MG; Start 05/20/17 at 15:30 Levofloxacin/ Dextrose (Levaquin 750 Mg/ D5W 150 ml (Pmx)) 150 ml @ 100 mls/hr Q24H IVPB Last administered on 05/24/17 14:25; Admin Dose 100 MLS/HR; Start 05/21/17 at 14:00 Hydralazine HCl (Apresoline) 10 mg Q6H PRN IV ELEVATED BLOOD PRESSURE; Start 05/20/17 at 15:30 Clonidine (Catapres) 0.1 mg Q6H PRN PO ELEVATED BLOOD PRESSURE; Start at 15:30 Nitroglycerin (Nitroglycerin (Sl Tab) 0.4 Mg) 1 tab Q5M PRN SL ANGINA; Start 05/20/17 at 15:30 Cholecalciferol (Vitamin D) 3,000 unit DAILY PO Last administered on 08:54; Admin Dose 3,000 UNIT; Start 05/21/17 at 09:00 Montelukast Sodium (Singulair) 10 mg QHS PO Last administered on 05/24/17 20: 57; Admin Dose 10 MG; Start 05/20/17 at 21:00 Phenol (Cepastat Lozenge) 1 lozenge Q1H PRN MT COUGH Last administered on 05/22 12:56; Admin Dose 1 LOZENGE; Start 05/20/17 at 16:00 Nicotine (Nicoderm 21 Mg/ 24hr) 1 patch DAILY TRANSDERM Last administered on 08:55; Admin Dose 1 PATCH; Start 05/20/17 at 18:00 Nicotine Polacrilex (Nicorette) 4 mg Q2H PRN BUCCAL SHORTNESS OF BREATH Last administered on 05/22/17 12:55; Admin Dose 4 MG; Start 05/22/17 at 12:00 Phenol (Cepastat Lozenge) 1 lozenge Q1H PRN MT COUGH; Start 05/22/17 at 12:00 Guaifenesin (Robitussin Liquid Cup) 200 mg Q4H PRN PO COUGH Last administered on 05/24/17 20:58; Admin Dose 200 MG; Start 05/22/17 at 12:00 Methylprednisolone Sodium Succinate (Solu-Medrol) 40 mg Q6 IV Last administered on 05/25/17 05:25; Admin Dose 40 MG; Start 05/24/17 at 12:00 Zolpidem Tartrate (Ambien) 5 mg HS PO ; Start 05/25/17 at 23:00 GOSIA CRAWFORD May 25, 2017 11:11
[2017-05-25 12:00] VITALS: BP 134/61; PULSE 60; RESP 18
[2017-05-25] MEDS: GUAIFENESIN 20 MG/ML 5ML CUP PO PRN ×2 (12:54→17:16)
[2017-05-25] MEDS: LEVOFLOXACIN 750MG/D5W (PMX) 150 ML IVPB SCH (13:15)
[2017-05-25 14:30] VITALS: BP 128/60; RESP 18
[2017-05-25 20:09] VITALS: BP 141/67; RESP 18
[2017-05-25] MEDS: MONTELUKAST 10 MG TAB PO SCH (20:58)
[2017-05-25] MEDS ORDERED: ZOLPIDEM 5 MG TAB PO SCH (23:00)
[2017-05-26] VITALS (9 sets, daily range): BP systolic 110–172; BP diastolic 60–99; PULSE 50–140; RESP 16–18
[2017-05-26] MEDS: METHYLPREDNISOLONE 40 MG INJ IV SCH (06:16)
[2017-05-26] MEDS: SOD CHLORIDE 0.45% 1,000 ML IV SCH (06:17)
[2017-05-26] MEDS: IPRATROPIUM (NEB) 0.5 MG/2.5 ML AMP HHN SCH ×2 (07:38→13:40)
[2017-05-26 08:20] LABS: BASOPHILS % 0.3 % (0.0-2.0); HEMATOCRIT 39.4 % (42.0-52.0); HEMOGLOBIN 12.9 g/dl (14.0-18.0); LYMPHOCYTES # 1.2 10^3/ul (0.8-2.9); LYMPHOCYTES % 9.7 % (15.0-51.0); MEAN CORPUSCULAR HEMOGLOBIN 29.4 pg (29.0-33.0); MEAN CORPUSCULAR HGB CONC 32.7 g/dl (32.0-37.0); MEAN CORPUSCULAR VOLUME 89.7 fl (82.0-101.0); MEAN PLATELET VOLUME 12.1 fl (7.4-10.4); MONOCYTE # 1.1 10^3/ul (0.3-0.9); MONOCYTES % 9.1 % (0.0-11.0); NEUTROPHIL # 9.2 10^3/ul (1.6-7.5); PLATELET COUNT 244 10^3/UL (140-415); RED BLOOD COUNT 4.39 10^6/ul (4.70-6.10); RED CELL DISTRIBUTION WIDTH 14.5 % (11.5-14.5); WHITE BLOOD COUNT 12.1 10^3/ul (4.8-10.8)
[2017-05-26 08:44] LABS: CALCIUM 8.3 mg/dl (8.4-10.2); CREATININE 0.85 mg/dl (0.61-1.24); POTASSIUM 4.3 mmol/L (3.5-5.1)
[2017-05-26] MEDS: LORAZEPAM 2 MG INJ IV PRN (08:52)
[2017-05-26] MEDS: CHOLECALCIFEROL 1,000 UNIT TAB PO SCH (08:52)
[2017-05-26] MEDS: NICOTINE (21 MG/24 HR) PATCH TRANSDERM SCH (08:52)
[2017-05-26] MEDS: HEPARIN 5,000 UNIT/0.5 ML VIAL SC SCH ×2 (09:12→22:13)
--- NOTE | 2017-05-26 10:55 | CONS ---
Date/Time of Note Date/Time of Note DATE: 05/26/17 TIME: 10:54 Consult Date/Type/Reason Admit Date/Time May 20, 2017 at 15:03 Initial Consult Date Type of Consultation: Pulmonary Subjective Patient comfortable this morning. Still has some difficulty swallowing with pain in his throat. Denies any nausea no vomiting no fever no chills. Objective Vital Signs Date Time Temp Pulse Resp B/P Pulse Ox O2 Delivery O2 Flow Rate FiO2 05/26/17 09:06 66 18 138/65 Room Air 05/26/17 07:38 93 21 05/26/17 02:00 97.5 Intake and Output 05/25/17 05/25/17 05/26/17 15:00 23:00 07:00 Intake Total 1125 ml 1530 ml 1400 ml Output Total 1600 ml 1250 ml 1700 ml Balance -475 ml 280 ml -300 ml Exam GENERAL: Elderly [place]ian gentleman comfortable at rest no acute distress VITAL SIGNS: per chart NECK: Supple. No JVD or lymphadenopathy. CARDIAC EXAM: S1, S2. No added sounds or murmurs. CHEST: clear bilaterally, No added sounds, rales or wheezes ABDOMEN: Soft, nontender. No guarding or rebound. EXTREMITIES: No cyanosis, clubbing or edema. NEUROLOGIC: Generalized weakness. No focal deficits. Results/Medications Result Diagram: 05/26/1732 05/26/1732 Results 24 hrs Laboratory Tests Test 05/26/17 07:32 White Blood Count 12.1 H Red Blood Count 4.39 L Hemoglobin 12.9 L Hematocrit 39.4 L Mean Corpuscular Volume 89.7 Mean Corpuscular Hemoglobin 29.4 Mean Corpuscular Hemoglobin Concent 32.7 Red Cell Distribution Width 14.5 Platelet Count 244 Mean Platelet Volume 12.1 H Neutrophils % 76.0 Lymphocytes % 9.7 L Monocytes % 9.1 Eosinophils % 0.0 Basophils % 0.3 Nucleated Red Blood Cells % 0.0 Neutrophils # 9.2 H Lymphocytes # 1.2 Monocytes # 1.1 H Eosinophils # 0.0 Basophils # 0.0 Nucleated Red Blood Cells # 0.0 Sodium Level 137 Potassium Level 4.3 Chloride Level 105 Carbon Dioxide Level 25 Anion Gap 11 Blood Urea Nitrogen 24 H Creatinine 0.85 Glucose Level 100 Calcium Level 8.3 L Medications Current Medications Ondansetron HCl (Zofran Inj) 4 mg Q6H PRN IV NAUSEA AND/OR VOMITING; Start 05/27 at 15:30 Acetaminophen (Tylenol Tab) 650 mg Q6H PRN PO PAIN LEVEL 1-3 OR FEVER; Start 05/20/17 at 15:30 Acetaminophen/ Hydrocodone Bitart ([place] (5/325)) 1 tab Q6H PRN PO MODERATE PAIN LEVEL 4-6 Last administered on 05/24/17 20:57; Admin Dose 1 TAB; Start 05/20/17 at 15:30 Morphine Sulfate (morphine) 2 mg Q4H PRN IV SEVERE PAIN LEVEL 7-10; Start 05/27 at 15:30 Docusate Sodium (Colace) 100 mg Q12H PRN PO CONSTIPATION; Start 05/20/17 at 15 :30 Magnesium Hydroxide (Milk Of Mag) 30 ml DAILY PRN PO CONSTIPATION; Start 05/20 at 15:30 Sodium Biphosphate/ Sodium Phosphate (Fleet Enema) 133 ml DAILY PRN [place] CONSTIPATION; Start 05/20/17 at 15:30 Heparin Sodium (Porcine) (Heparin (5000 Units/0.5 ml)) 5,000 unit Q12 SC Last administered on 05/26/17 09:12; Admin Dose 5,000 UNIT; Start 05/20/17 at 21: 00 Clonidine (Catapres) 0.1 mg Q6H PRN PO ELEVATED BLOOD PRESSURE; Start at 15:30 Nitroglycerin (Nitroglycerin (Sl Tab) 0.4 Mg) 1 tab Q5M PRN SL ANGINA; Start 05/20/17 at 15:30 Cholecalciferol (Vitamin D) 3,000 unit DAILY PO Last administered on 08:52; Admin Dose 3,000 UNIT; Start 05/21/17 at 09:00 Montelukast Sodium (Singulair) 10 mg QHS PO Last administered on 05/25/17 20: 58; Admin Dose 10 MG; Start 05/20/17 at 21:00 Phenol (Cepastat Lozenge) 1 lozenge Q1H PRN MT COUGH Last administered on 05/22 12:56; Admin Dose 1 LOZENGE; Start 05/20/17 at 16:00 Nicotine (Nicoderm 21 Mg/ 24hr) 1 patch DAILY TRANSDERM Last administered on 08:52; Admin Dose 1 PATCH; Start 05/20/17 at 18:00 Nicotine Polacrilex (Nicorette) 4 mg Q2H PRN BUCCAL SHORTNESS OF BREATH Last administered on 05/22/17 12:55; Admin Dose 4 MG; Start 05/22/17 at 12:00 Phenol (Cepastat Lozenge) 1 lozenge Q1H PRN MT COUGH; Start 05/22/17 at 12:00 Guaifenesin (Robitussin Liquid Cup) 200 mg Q4H PRN PO COUGH Last administered on 05/25/17 17:16; Admin Dose 200 MG; Start 05/22/17 at 12:00 Zolpidem Tartrate (Ambien) 5 mg HS PO Last administered on 05/25/17 22:50; Admin Dose 5 MG; Start 05/25/17 at 23:00 Prednisone (Prednisone) 40 mg DAILY PO ; Start 05/27/17 at 09:00 Lorazepam (Ativan) 0.5 mg HS PRN PO INSOMNIA; Start 05/26/17 at 11:00 Assessment/Plan Chief Complaint/Hosp Course Assessment 1. Likely mild COPD exacerbation 2. Left lower lobe spiculated mass concerning for malignancy Plan 1. Continue steroid and antibiotic tapers 2. Pulmonary function testing 3. CT-guided lung biopsy, explained to the patient he is at risk of pneumothorax. 4. Outpatient PET scan 5. Depending upon results patient may be candidate for excision biopsy which would be curative if this is a solitary malignant nodule. Problems: ERIN FORMAN MD, [facility] May 26, 2017 10:55
[2017-05-26] MEDS ORDERED: LORAZEPAM 0.5 MG TAB PO PRN (11:00)
--- NOTE | 2017-05-26 12:45 | PN ---
Date/Time of Note Date/Time of Note DATE: 05/26/17 TIME: 12:44 Assessment/Plan VTE Prophylaxis VTE Prophylaxis Intervention: SCD's Lines/Catheters IV Catheter Type (from Nrsg): Peripheral IV Urinary Cath still in place: No Assessment/Plan Assessment/Plan 72 yo M with extensive tobacco hx presented with SOB, found to have lung lesion , today c/o chest pain. #chest pain: anxiety v ACS v other -ekg, tele, trops x 2 #lung lesion: per IR too small to biopsy talked to pulm. plan is for inpatient PFTs, then outpatient f/u for PET, possible CT surgery eval #dry mouth: etio unclear. will stop steroids. no dry eye so do not suspect Sjogrens will try to talk to PCP in AM Subjective 24 Hr Interval Summary Free Text/Dictation appears very comfortable, but also anxious. complains about dry mouth he has had for 2 mos. has been seen by PCP, ENT, and has had a swallow study. All work up thus far has been unremarkable. around 2pm started complaining of L sided chest pain x ~10 minutes, states it felt "stabbing" in nature Exam/Review of Systems Vital Signs Vitals Vital Signs Date Time Temp Pulse Resp B/P Pulse Ox O2 Delivery O2 Flow Rate FiO2 05/26/17 09:06 66 18 138/65 Room Air 05/26/17 07:38 93 21 05/26/17 02:00 97.5 Intake and Output 05/25/17 05/25/17 05/26/17 15:00 23:00 07:00 Intake Total 1125 ml 1530 ml 1400 ml Output Total 1600 ml 1250 ml 1700 ml Balance -475 ml 280 ml -300 ml Exam nad op without thrush or lesion no mrg lungs clear abd soft no rashes no edema Results Result Diagram: 05/26/17 0732 05/26/17 0732 Results 24 hrs Laboratory Tests Test 05/26/17 07:32 White Blood Count 12.1 H Red Blood Count 4.39 L Hemoglobin 12.9 L Hematocrit 39.4 L Mean Corpuscular Volume 89.7 Mean Corpuscular Hemoglobin 29.4 Mean Corpuscular Hemoglobin Concent 32.7 Red Cell Distribution Width 14.5 Platelet Count 244 Mean Platelet Volume 12.1 H Neutrophils % 76.0 Lymphocytes % 9.7 L Monocytes % 9.1 Eosinophils % 0.0 Basophils % 0.3 Nucleated Red Blood Cells % 0.0 Neutrophils # 9.2 H Lymphocytes # 1.2 Monocytes # 1.1 H Eosinophils # 0.0 Basophils # 0.0 Nucleated Red Blood Cells # 0.0 Sodium Level 137 Potassium Level 4.3 Chloride Level 105 Carbon Dioxide Level 25 Anion Gap 11 Blood Urea Nitrogen 24 H Creatinine 0.85 Glucose Level 100 Calcium Level 8.3 L Medications Medications Current Medications Ondansetron HCl (Zofran Inj) 4 mg Q6H PRN IV NAUSEA AND/OR VOMITING; Start 05/27 at 15:30 Acetaminophen (Tylenol Tab) 650 mg Q6H PRN PO PAIN LEVEL 1-3 OR FEVER; Start 05/20/17 at 15:30 Acetaminophen/ Hydrocodone Bitart ([place] (5/325)) 1 tab Q6H PRN PO MODERATE PAIN LEVEL 4-6 Last administered on 05/24/17 20:57; Admin Dose 1 TAB; Start 05/20/17 at 15:30 Morphine Sulfate (morphine) 2 mg Q4H PRN IV SEVERE PAIN LEVEL 7-10; Start 05/27 at 15:30 Docusate Sodium (Colace) 100 mg Q12H PRN PO CONSTIPATION; Start 05/20/17 at 15 :30 Magnesium Hydroxide (Milk Of Mag) 30 ml DAILY PRN PO CONSTIPATION; Start 05/20 at 15:30 Sodium Biphosphate/ Sodium Phosphate (Fleet Enema) 133 ml DAILY PRN [place] CONSTIPATION; Start 05/20/17 at 15:30 Heparin Sodium (Porcine) (Heparin (5000 Units/0.5 ml)) 5,000 unit Q12 SC Last administered on 05/26/17 09:12; Admin Dose 5,000 UNIT; Start 05/20/17 at 21: 00 Clonidine (Catapres) 0.1 mg Q6H PRN PO ELEVATED BLOOD PRESSURE; Start at 15:30 Nitroglycerin (Nitroglycerin (Sl Tab) 0.4 Mg) 1 tab Q5M PRN SL ANGINA; Start 05/20/17 at 15:30 Cholecalciferol (Vitamin D) 3,000 unit DAILY PO Last administered on 08:52; Admin Dose 3,000 UNIT; Start 05/21/17 at 09:00 Montelukast Sodium (Singulair) 10 mg QHS PO Last administered on 05/25/17 20: 58; Admin Dose 10 MG; Start 05/20/17 at 21:00 Phenol (Cepastat Lozenge) 1 lozenge Q1H PRN MT COUGH Last administered on 05/22 12:56; Admin Dose 1 LOZENGE; Start 05/20/17 at 16:00 Nicotine (Nicoderm 21 Mg/ 24hr) 1 patch DAILY TRANSDERM Last administered on 08:52; Admin Dose 1 PATCH; Start 05/20/17 at 18:00 Nicotine Polacrilex (Nicorette) 4 mg Q2H PRN BUCCAL SHORTNESS OF BREATH Last administered on 05/22/17 12:55; Admin Dose 4 MG; Start 05/22/17 at 12:00 Phenol (Cepastat Lozenge) 1 lozenge Q1H PRN MT COUGH; Start 05/22/17 at 12:00 Guaifenesin (Robitussin Liquid Cup) 200 mg Q4H PRN PO COUGH Last administered on 05/25/17 17:16; Admin Dose 200 MG; Start 05/22/17 at 12:00 Zolpidem Tartrate (Ambien) 5 mg HS PO Last administered on 05/25/17 22:50; Admin Dose 5 MG; Start 05/25/17 at 23:00 Prednisone (Prednisone) 40 mg DAILY PO ; Start 05/27/17 at 09:00 Lorazepam (Ativan) 0.5 mg HS PRN PO INSOMNIA; Start 05/26/17 at 11:00 REAGAN CLAYTON MD May 26, 2017 12:45
[2017-05-26] MEDS: GUAIFENESIN LA 600 MG TABSR PO SCH ×2 (14:38→22:10)
[2017-05-26] MEDS: NITROGLYCERIN (SL) 0.4 MG TAB SL PRN ×2 (14:50→14:56)
[2017-05-26] MEDS: MONTELUKAST 10 MG TAB PO SCH (22:10)
--- NOTE | 2017-05-26 23:17 | RADRPT ---
PROCEDURE: XR Chest. CLINICAL INDICATION: Chest pain TECHNIQUE: Single AP portable chest. COMPARISON: No prior Chest x-ray FINDINGS: The cardiomediastinal silhouette is within normal limits of size. Mild hyperinflation compatible wit h COPD. Coarse interstitial fibrotic changes. Atherosclerotic calcification of the aorta. The lungs are clear without pleural effusion or focal consolidation. No pneumothorax. The osseous structures and soft tissues are unremarkable. IMPRESSION: 1. No evidence for active cardiopulmonary disease. 2. COPD. RPTAT:AAJJ Antony Goodson Physician Date Time Electronically viewed and signed by Physician Carmelita on 05/26/2017 23:17 EDMUND/
[2017-05-27] VITALS (12 sets, daily range): BP systolic 114–149; BP diastolic 55–70; PULSE 40–72; RESP 15–20
[2017-05-27 00:12] LABS: CREATINE KINASE 66 IU/L (23-200)
[2017-05-27 00:25] LABS: CK-MB 1.44 ng/ml (0.0-2.4); TROPONIN-I < 0.012 ng/ml (0.00-0.12)
[2017-05-27] MEDS ORDERED: ZOLPIDEM 5 MG TAB PO SCH ×2 (01:15→21:00)
[2017-05-27 07:36] LABS: ABNORMAL IP MESSAGE 1; BASOPHILS % 0.3 % (0.0-2.0); EOSINOPHILS # 0.1 10^3/ul (0.0-0.5); HEMATOCRIT 40.8 % (42.0-52.0); HEMOGLOBIN 13.4 g/dl (14.0-18.0); LYMPHOCYTES # 2.1 10^3/ul (0.8-2.9); LYMPHOCYTES % 20.5 % (15.0-51.0); MEAN CORPUSCULAR HEMOGLOBIN 29.3 pg (29.0-33.0); MEAN CORPUSCULAR HGB CONC 32.8 g/dl (32.0-37.0); MEAN CORPUSCULAR VOLUME 89.3 fl (82.0-101.0); MEAN PLATELET VOLUME 11.4 fl (7.4-10.4); MONOCYTE # 1.3 10^3/ul (0.3-0.9); MONOCYTES % 12.5 % (0.0-11.0); NUCLEATED RED BLOOD CELLS% 0.3 /100WBC (0.0-0.0); PLATELET COUNT 240 10^3/UL (140-415); POSITIVE DIFF @See below; RED BLOOD COUNT 4.57 10^6/ul (4.70-6.10); RED CELL DISTRIBUTION WIDTH 14.8 % (11.5-14.5); WHITE BLOOD COUNT 10.2 10^3/ul (4.8-10.8)
[2017-05-27 08:06] LABS: CALCIUM 8.4 mg/dl (8.4-10.2); CREATININE 1.01 mg/dl (0.61-1.24); POTASSIUM 4.1 mmol/L (3.5-5.1)
[2017-05-27 08:10] LABS: CREATINE KINASE 51 IU/L (23-200)
[2017-05-27 08:15] LABS: CK-MB 1.19 ng/ml (0.0-2.4); TROPONIN-I < 0.012 ng/ml (0.00-0.12)
[2017-05-27] MEDS ORDERED: predniSONE 20 MG TAB PO SCH (09:00)
[2017-05-27] MEDS: CHOLECALCIFEROL 1,000 UNIT TAB PO SCH (10:26)
[2017-05-27] MEDS: GUAIFENESIN LA 600 MG TABSR PO SCH ×2 (10:27→21:26)
[2017-05-27] MEDS: NICOTINE (21 MG/24 HR) PATCH TRANSDERM SCH (10:29)
[2017-05-27] MEDS: HEPARIN 5,000 UNIT/0.5 ML VIAL SC SCH ×2 (10:34→21:32)
--- NOTE | 2017-05-27 12:39 | CONS ---
Date/Time of Note Date/Time of Note DATE: 05/27/17 TIME: 12:36 Assessment/Plan Assessment/Plan Additional Assessment/Plan Assessment and recommendations; 1. Patient admitted with severe COPD exacerbation with marked clinical improvement. Off antibiotics and steroids. 2. Left lower lobe spiculated mass concerning for primary bronchogenic carcinoma. However patient's lung function appears extremely poor that would be a significant impediment in further workup. 3. Throat discomfort of uncertain etiology at this point. Continue current treatment. Patient may require ENT evaluation. Patient will need PET scan as well as PFT on outpatient basis. However owing to less than 1 cm site of the lesion PET scan may be negative. Consultation Date/Type/Reason Admit Date/Time May 20, 2017 at 15:03 Type of Consultation: Pulmonary 24 HR Interval Summary Free Text/Dictation Patient is still complaining of throat discomfort as well as oral dryness. Shortness of breath has improved. General exam; elderly male, awake, currently in no distress. Exam/Review of Systems Vital Signs Vitals Vital Signs Date Time Temp Pulse Resp B/P Pulse Ox O2 Delivery O2 Flow Rate FiO2 05/27/17 12:14 50 05/27/17 11:31 96.5 17 141/63 95 05/27/17 02:42 21 05/26/17 09:06 Room Air Intake and Output 05/26/17 05/26/17 05/27/17 14:59 22:59 06:59 Intake Total 350 ml Balance 350 ml Exam HEENT exam; supple neck, no JVD. No lymphadenopathy. Midline trachea. No thyromegaly. Pharynx is clear. No neck masses. Chest exam; diminished breath sounds but clear to auscultation. S1-S2 audible, no murmurs. Regular rhythm. Abdomen exam; soft, nontender. No organomegaly. Bowel sounds audible. Extremities; no edema. No clubbing. 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 Results Result Diagram: 05/27/17 0708 05/27/17 0709 Results 24 hrs Laboratory Tests Test 05/26/17 14:35 05/26/17 19:45 05/26/17 23:44 05/27/17 02:25 Troponin I < 0.012 < 0.012 < 0.012 < 0.012 Creatine Kinase 66 Creatine Kinase Index 2.2 Creatinine Kinase MB (Mass) 1.44 Test 05/27/17 07:08 05/27/17 07:09 White Blood Count 10.2 Red Blood Count 4.57 L Hemoglobin 13.4 L Hematocrit 40.8 L Mean Corpuscular Volume 89.3 Mean Corpuscular Hemoglobin 29.3 Mean Corpuscular Hemoglobin Concent 32.8 Red Cell Distribution Width 14.8 H Platelet Count 240 Mean Platelet Volume 11.4 H Neutrophils % 59.0 Lymphocytes % 20.5 Monocytes % 12.5 H Eosinophils % 1.0 Basophils % 0.3 Nucleated Red Blood Cells % 0.3 H Neutrophils # 6.0 Lymphocytes # 2.1 Monocytes # 1.3 H Eosinophils # 0.1 Basophils # 0.0 Nucleated Red Blood Cells # 0.0 Creatine Kinase 51 Creatine Kinase Index 2.3 Creatinine Kinase MB (Mass) 1.19 Troponin I < 0.012 Sodium Level 137 Potassium Level 4.1 Chloride Level 106 Carbon Dioxide Level 29 Anion Gap 6 L Blood Urea Nitrogen 29 H Creatinine 1.01 Glucose Level 72 Calcium Level 8.4 Medications Medications Current Medications Ondansetron HCl (Zofran Inj) 4 mg Q6H PRN IV NAUSEA AND/OR VOMITING; Start 05/27 at 15:30 Acetaminophen (Tylenol Tab) 650 mg Q6H PRN PO PAIN LEVEL 1-3 OR FEVER; Start 05/20/17 at 15:30 Acetaminophen/ Hydrocodone Bitart ([place] (5/325)) 1 tab Q6H PRN PO MODERATE PAIN LEVEL 4-6 Last administered on 05/24/17 20:57; Admin Dose 1 TAB; Start 05/20/17 at 15:30 Morphine Sulfate (morphine) 2 mg Q4H PRN IV SEVERE PAIN LEVEL 7-10; Start 05/27 at 15:30 Docusate Sodium (Colace) 100 mg Q12H PRN PO CONSTIPATION; Start 05/20/17 at 15 :30 Magnesium Hydroxide (Milk Of Mag) 30 ml DAILY PRN PO CONSTIPATION; Start 05/20 at 15:30 Sodium Biphosphate/ Sodium Phosphate (Fleet Enema) 133 ml DAILY PRN [place] CONSTIPATION; Start 05/20/17 at 15:30 Heparin Sodium (Porcine) (Heparin (5000 Units/0.5 ml)) 5,000 unit Q12 SC Last administered on 05/27/17 10:34; Admin Dose 5,000 UNIT; Start 05/20/17 at 21: 00 Nitroglycerin (Nitroglycerin (Sl Tab) 0.4 Mg) 1 tab Q5M PRN SL ANGINA Last administered on 05/26/17 14:56; Admin Dose 1 TAB; Start 05/20/17 at 15:30 Cholecalciferol (Vitamin D) 3,000 unit DAILY PO Last administered on 10:26; Admin Dose 3,000 UNIT; Start 05/21/17 at 09:00 Montelukast Sodium (Singulair) 10 mg QHS PO Last administered on 05/26/17 22: 10; Admin Dose 10 MG; Start 05/20/17 at 21:00 Nicotine (Nicoderm 21 Mg/ 24hr) 1 patch DAILY TRANSDERM Last administered on 10:29; Admin Dose 1 PATCH; Start 05/20/17 at 18:00 Nicotine Polacrilex (Nicorette) 4 mg Q2H PRN BUCCAL SHORTNESS OF BREATH Last administered on 05/22/17 12:55; Admin Dose 4 MG; Start 05/22/17 at 12:00 Phenol (Cepastat Lozenge) 1 lozenge Q1H PRN MT COUGH; Start 05/22/17 at 12:00 Guaifenesin (Robitussin Liquid Cup) 200 mg Q4H PRN PO COUGH Last administered on 05/25/17 17:16; Admin Dose 200 MG; Start 05/22/17 at 12:00 Lorazepam (Ativan) 0.5 mg HS PRN PO ANXIETY; Start 05/26/17 at 13:00 Guaifenesin (Mucinex) 600 mg BID PO Last administered on 05/27/17 10:27; Admin Dose 600 MG; Start 05/26/17 at 14:00 Zolpidem Tartrate (Ambien) 5 mg HS PO ; Start 05/27/17 at 21:00 Pantoprazole (Protonix Tab) 40 mg BID@06,18 PO ; Start 05/27/17 at 12:28 GOSIA CRAWFORD May 27, 2017 12:39
[2017-05-27] MEDS: LORAZEPAM 0.5 MG TAB PO PRN (12:40)
[2017-05-27] MEDS: PANTOPRAZOLE (EC) 40 MG TAB PO SCH ×2 (12:45→18:59)
--- NOTE | 2017-05-27 19:38 | PN ---
Date/Time of Note Date/Time of Note DATE: 05/27/17 TIME: 19:32 Assessment/Plan VTE Prophylaxis VTE Prophylaxis Intervention: SCD's Lines/Catheters IV Catheter Type (from Nrsg): Peripheral IV Urinary Cath still in place: No Assessment/Plan Assessment/Plan 72 yo M with extensive tobacco hx presented with SOB, found to have lung lesion , c/o chest pain 10.16. #chest pain:no evidence of ACS given negative serial trops #lung lesion: per IR too small to biopsy talked to pulm. plan is for inpatient PFTs, then outpatient f/u for PET, possible CT surgery eval #dry mouth: ENT notes reviewed. Pt with laryngoscopy done 2 weeks ago. no masses but notable for postcricoid erythema-->this could be suggestive of LRP. -BID PPI started will talk to pulm, possible DC in AM Subjective 24 Hr Interval Summary Free Text/Dictation Still with scratchy throat chest pain has subsided Exam/Review of Systems Vital Signs Vitals Vital Signs Date Time Temp Pulse Resp B/P Pulse Ox O2 Delivery O2 Flow Rate FiO2 05/27/17 16:28 56 05/27/17 15:11 97.8 18 130/60 93 05/27/17 02:42 21 05/26/17 09:06 Room Air Intake and Output 05/26/17 05/26/17 05/27/17 15:00 23:00 07:00 Intake Total 350 ml Balance 350 ml Exam nad no mrg lungs clear abd soft no rashes Results Result Diagram: 05/27/17 0708 05/27/17 0709 Results 24 hrs Laboratory Tests Test 05/26/17 19:45 05/26/17 23:44 05/27/17 02:25 05/27/17 07:08 Troponin I < 0.012 < 0.012 < 0.012 < 0.012 Creatine Kinase 66 51 Creatine Kinase Index 2.2 2.3 Creatinine Kinase MB (Mass) 1.44 1.19 White Blood Count 10.2 Red Blood Count 4.57 L Hemoglobin 13.4 L Hematocrit 40.8 L Mean Corpuscular Volume 89.3 Mean Corpuscular Hemoglobin 29.3 Mean Corpuscular Hemoglobin Concent 32.8 Red Cell Distribution Width 14.8 H Platelet Count 240 Mean Platelet Volume 11.4 H Neutrophils % 59.0 Lymphocytes % 20.5 Monocytes % 12.5 H Eosinophils % 1.0 Basophils % 0.3 Nucleated Red Blood Cells % 0.3 H Neutrophils # 6.0 Lymphocytes # 2.1 Monocytes # 1.3 H Eosinophils # 0.1 Basophils # 0.0 Nucleated Red Blood Cells # 0.0 Test 05/27/17 07:09 Sodium Level 137 Potassium Level 4.1 Chloride Level 106 Carbon Dioxide Level 29 Anion Gap 6 L Blood Urea Nitrogen 29 H Creatinine 1.01 Glucose Level 72 Calcium Level 8.4 Medications Medications Current Medications Ondansetron HCl (Zofran Inj) 4 mg Q6H PRN IV NAUSEA AND/OR VOMITING; Start 05/27 at 15:30 Acetaminophen (Tylenol Tab) 650 mg Q6H PRN PO PAIN LEVEL 1-3 OR FEVER; Start 05/20/17 at 15:30 Acetaminophen/ Hydrocodone Bitart ([place] (5/325)) 1 tab Q6H PRN PO MODERATE PAIN LEVEL 4-6 Last administered on 05/24/17 20:57; Admin Dose 1 TAB; Start 05/20/17 at 15:30 Morphine Sulfate (morphine) 2 mg Q4H PRN IV SEVERE PAIN LEVEL 7-10; Start 05/27 at 15:30 Docusate Sodium (Colace) 100 mg Q12H PRN PO CONSTIPATION; Start 05/20/17 at 15 :30 Magnesium Hydroxide (Milk Of Mag) 30 ml DAILY PRN PO CONSTIPATION; Start 05/20 at 15:30 Sodium Biphosphate/ Sodium Phosphate (Fleet Enema) 133 ml DAILY PRN [place] CONSTIPATION; Start 05/20/17 at 15:30 Heparin Sodium (Porcine) (Heparin (5000 Units/0.5 ml)) 5,000 unit Q12 SC Last administered on 05/27/17 10:34; Admin Dose 5,000 UNIT; Start 05/20/17 at 21: 00 Nitroglycerin (Nitroglycerin (Sl Tab) 0.4 Mg) 1 tab Q5M PRN SL ANGINA Last administered on 05/26/17 14:56; Admin Dose 1 TAB; Start 05/20/17 at 15:30 Cholecalciferol (Vitamin D) 3,000 unit DAILY PO Last administered on 10:26; Admin Dose 3,000 UNIT; Start 05/21/17 at 09:00 Montelukast Sodium (Singulair) 10 mg QHS PO Last administered on 05/26/17 22: 10; Admin Dose 10 MG; Start 05/20/17 at 21:00 Nicotine (Nicoderm 21 Mg/ 24hr) 1 patch DAILY TRANSDERM Last administered on 10:29; Admin Dose 1 PATCH; Start 05/20/17 at 18:00 Nicotine Polacrilex (Nicorette) 4 mg Q2H PRN BUCCAL SHORTNESS OF BREATH Last administered on 05/22/17 12:55; Admin Dose 4 MG; Start 05/22/17 at 12:00 Phenol (Cepastat Lozenge) 1 lozenge Q1H PRN MT COUGH; Start 05/22/17 at 12:00 Guaifenesin (Robitussin Liquid Cup) 200 mg Q4H PRN PO COUGH Last administered on 05/25/17 17:16; Admin Dose 200 MG; Start 05/22/17 at 12:00 Lorazepam (Ativan) 0.5 mg HS PRN PO ANXIETY Last administered on 05/27/17 12: 40; Admin Dose 0.5 MG; Start 05/26/17 at 13:00 Guaifenesin (Mucinex) 600 mg BID PO Last administered on 05/27/17 10:27; Admin Dose 600 MG; Start 05/26/17 at 14:00 Zolpidem Tartrate (Ambien) 5 mg HS PO ; Start 05/27/17 at 21:00 Pantoprazole (Protonix Tab) 40 mg BID@06,18 PO Last administered on 05/27/17 18:59; Admin Dose 40 MG; Start 05/27/17 at 12:28 REAGAN CLAYTON MD May 27, 2017 19:38
[2017-05-27] MEDS ORDERED: ZOLPIDEM 5 MG TAB PO ONE ×2 (21:00)
[2017-05-27] MEDS: MONTELUKAST 10 MG TAB PO SCH (21:26)
[2017-05-28] VITALS (9 sets, daily range): BP systolic 104–123; BP diastolic 53–62; PULSE 46–80; RESP 16–19
[2017-05-28] MEDS: LORAZEPAM 0.5 MG TAB PO PRN (02:03)
[2017-05-28] MEDS: PANTOPRAZOLE (EC) 40 MG TAB PO SCH ×2 (06:28→18:02)
[2017-05-28 07:29] LABS: ABNORMAL IP MESSAGE 1; BASOPHIL # 0.1 10^3/ul (0.0-0.1); BASOPHILS % 0.5 % (0.0-2.0); EOSINOPHILS # 0.2 10^3/ul (0.0-0.5); EOSINOPHILS % 2.2 % (0.0-7.0); HEMATOCRIT 41.4 % (42.0-52.0); LYMPHOCYTES % 21.2 % (15.0-51.0); MEAN CORPUSCULAR HEMOGLOBIN 30.2 pg (29.0-33.0); MEAN CORPUSCULAR HGB CONC 33.8 g/dl (32.0-37.0); MEAN CORPUSCULAR VOLUME 89.4 fl (82.0-101.0); MEAN PLATELET VOLUME 12.2 fl (7.4-10.4); MONOCYTE # 1.1 10^3/ul (0.3-0.9); MONOCYTES % 11.7 % (0.0-11.0); NEUTROPHIL # 5.7 10^3/ul (1.6-7.5); PLATELET COUNT 218 10^3/UL (140-415); POSITIVE DIFF @See below; RED BLOOD COUNT 4.63 10^6/ul (4.70-6.10); RED CELL DISTRIBUTION WIDTH 14.7 % (11.5-14.5); WHITE BLOOD COUNT 9.6 10^3/ul (4.8-10.8)
[2017-05-28 07:52] LABS: CALCIUM 8.2 mg/dl (8.4-10.2); CREATININE 0.94 mg/dl (0.61-1.24); POTASSIUM 3.9 mmol/L (3.5-5.1)
[2017-05-28 09:21] LABS: EOSINOPHILS % (M) 4 % (0-7); GIANT THROMBO% (M) 1 % (0-0); MONOCYTES % (M) 13 % (0-11); PLATELET ESTIMATE NORMAL; REACTIVE LYMPHOCYTES% (M) 4 % (0-0)
[2017-05-28] MEDS: NICOTINE (21 MG/24 HR) PATCH TRANSDERM SCH (09:56)
[2017-05-28] MEDS: CHOLECALCIFEROL 1,000 UNIT TAB PO SCH (09:56)
[2017-05-28] MEDS: GUAIFENESIN LA 600 MG TABSR PO SCH (09:56)
[2017-05-28] MEDS: HEPARIN 5,000 UNIT/0.5 ML VIAL SC SCH (10:18)
--- NOTE | 2017-05-28 12:48 | CONS ---
Date/Time of Note Date/Time of Note DATE: 05/28/17 TIME: 12:46 Assessment/Plan Assessment/Plan Additional Assessment/Plan Assessment recommendations; 1. Patient admitted with severe COPD exacerbation with marked clinical improvement. Off systemic steroids. 2. Spiculated left lower lobe lung lesion which is very worrisome for underlying primary bronchogenic carcinoma. However the lesion is too deep- seated for a safe biopsy. Lesion size is also less than 1 cm therefore PET imaging would possibly be negative. 3. Throat discomfort owing to acid reflux disease. 4. Anxiety disorder. Continue current treatment. Consider discharge. Patient to be followed up in outpatient pulmonary clinic for a PFT and further workup regarding left lower lobe lung lesion. Consultation Date/Type/Reason Admit Date/Time May 20, 2017 at 15:03 Type of Consultation: Pulmonary 24 HR Interval Summary Free Text/Dictation Patient's condition is stable. Still complains of throat discomfort. Shortness of breath and wheezing have improved. General exam; elderly male, awake alert, currently in no distress. Appears anxious. Exam/Review of Systems Vital Signs Vitals Vital Signs Date Time Temp Pulse Resp B/P Pulse Ox O2 Delivery O2 Flow Rate FiO2 05/28/17 12:16 57 05/28/17 11:29 97.6 18 123/62 93 05/28/17 05:00 Room Air 05/27/17 02:42 21 Intake and Output 05/27/17 05/27/17 05/28/17 15:00 23:00 07:00 Intake Total 300 ml 1000 ml 650 ml Output Total 1600 ml Balance 300 ml -600 ml 650 ml Exam HEENT exam; supple neck, no JVD. No lymphadenopathy. Midline trachea. No thyromegaly. Pharynx is clear.; Diminished breath sounds throughout. No added sound. S1-S2 audible, no murmurs. Regular rhythm. Abdomen exam; soft, nondistended. No organomegaly. Bowel sounds audible. Extremity exam; no peripheral edema. No clubbing. [employer] exam; no focal deficit. Results Result Diagram: 05/28/17 0610 05/28/17 0610 Results 24 hrs Laboratory Tests Test 05/28/17 06:10 White Blood Count 9.6 Red Blood Count 4.63 L Hemoglobin 14.0 Hematocrit 41.4 L Mean Corpuscular Volume 89.4 Mean Corpuscular Hemoglobin 30.2 Mean Corpuscular Hemoglobin Concent 33.8 Red Cell Distribution Width 14.7 H Platelet Count 218 Mean Platelet Volume 12.2 H Neutrophils % 59.0 Segmented Neutrophils % (Manual) 57 Band Neutrophils % (Manual) 1 Lymphocytes % 21.2 Lymphocytes % (Manual) 21 Reactive Lymphocytes % (Manual) 4 H Monocytes % 11.7 H Monocytes % (Manual) 13 H Eosinophils % 2.2 Eosinophils % (Manual) 4 Basophils % 0.5 Nucleated Red Blood Cells % 0.0 Neutrophils # 5.7 Neutrophils # (Manual) 5.5 Band Neutrophils # 0.0 Absolute Lymphocytes (Manual) 2.0 Lymphocytes # 2.0 Reactive Lymphocytes # 0.3 H Monocytes # 1.1 H Absolute Monocytes (Manual) 1.2 H Eosinophils # 0.2 Basophils # 0.1 Nucleated Red Blood Cells # 0.0 Platelet Estimate NORMAL Giant Platelets 1 H Sodium Level 136 Potassium Level 3.9 Chloride Level 106 Carbon Dioxide Level 26 Anion Gap 8 Blood Urea Nitrogen 27 H Creatinine 0.94 Glucose Level 68 L Calcium Level 8.2 L Medications Medications Current Medications Ondansetron HCl (Zofran Inj) 4 mg Q6H PRN IV NAUSEA AND/OR VOMITING; Start 05/27 at 15:30 Acetaminophen (Tylenol Tab) 650 mg Q6H PRN PO PAIN LEVEL 1-3 OR FEVER; Start 05/20/17 at 15:30 Acetaminophen/ Hydrocodone Bitart ([place] (5/325)) 1 tab Q6H PRN PO MODERATE PAIN LEVEL 4-6 Last administered on 05/24/17 20:57; Admin Dose 1 TAB; Start 05/20/17 at 15:30 Morphine Sulfate (morphine) 2 mg Q4H PRN IV SEVERE PAIN LEVEL 7-10; Start 05/27 at 15:30 Docusate Sodium (Colace) 100 mg Q12H PRN PO CONSTIPATION; Start 05/20/17 at 15 :30 Magnesium Hydroxide (Milk Of Mag) 30 ml DAILY PRN PO CONSTIPATION; Start 05/20 at 15:30 Sodium Biphosphate/ Sodium Phosphate (Fleet Enema) 133 ml DAILY PRN [place] CONSTIPATION; Start 05/20/17 at 15:30 Heparin Sodium (Porcine) (Heparin (5000 Units/0.5 ml)) 5,000 unit Q12 SC Last administered on 05/28/17 10:18; Admin Dose 5,000 UNIT; Start 05/20/17 at 21: 00 Nitroglycerin (Nitroglycerin (Sl Tab) 0.4 Mg) 1 tab Q5M PRN SL ANGINA Last administered on 05/26/17 14:56; Admin Dose 1 TAB; Start 05/20/17 at 15:30 Cholecalciferol (Vitamin D) 3,000 unit DAILY PO Last administered on 09:56; Admin Dose 3,000 UNIT; Start 05/21/17 at 09:00 Montelukast Sodium (Singulair) 10 mg QHS PO Last administered on 05/27/17 21: 26; Admin Dose 10 MG; Start 05/20/17 at 21:00 Nicotine (Nicoderm 21 Mg/ 24hr) 1 patch DAILY TRANSDERM Last administered on 09:56; Admin Dose 1 PATCH; Start 05/20/17 at 18:00 Nicotine Polacrilex (Nicorette) 4 mg Q2H PRN BUCCAL SHORTNESS OF BREATH Last administered on 05/22/17 12:55; Admin Dose 4 MG; Start 05/22/17 at 12:00 Phenol (Cepastat Lozenge) 1 lozenge Q1H PRN MT COUGH; Start 05/22/17 at 12:00 Guaifenesin (Robitussin Liquid Cup) 200 mg Q4H PRN PO COUGH Last administered on 05/25/17 17:16; Admin Dose 200 MG; Start 05/22/17 at 12:00 Lorazepam (Ativan) 0.5 mg HS PRN PO ANXIETY Last administered on 05/28/17 02: 03; Admin Dose 0.5 MG; Start 05/26/17 at 13:00 Guaifenesin (Mucinex) 600 mg BID PO Last administered on 05/28/17 09:56; Admin Dose 600 MG; Start 05/26/17 at 14:00 Zolpidem Tartrate (Ambien) 5 mg HS PO Last administered on 05/28/17 00:11; Admin Dose 5 MG; Start 05/27/17 at 21:00 Pantoprazole (Protonix Tab) 40 mg BID@18 PO Last administered on 05/28/17 06:28; Admin Dose 40 MG; Start 05/27/17 at 12:28 GOSIA CRAWFORD May 28, 2017 12:48
[2017-05-28] MEDS ORDERED: PANT40TA4 PO (15:13)
[2017-05-28] MEDS ORDERED: GUAI600T14 PO (15:13)
[2017-05-28] MEDS ORDERED: NICO1PAT43 TD (15:13)
--- NOTE | 2017-05-28 15:18 | DS ---
Date/Time of Note Date/Time of Note DATE: 05/28/17 TIME: 15:14 Discharge Summary Admission/Discharge Info Admit Date/Time May 20, 2017 at 15:03 Discharge Date/Time Discharge Diagnosis lung lesion, throat discomfort most likely 2/2 silent GERD Patient Condition: Stable Consults pulm Procedures 10.11 NCCT chest IMPRESSION: 1. No acute cardiopulmonary abnormality. Moderate centrilobular and paraseptal emphysema and chronic airway inflammatory change, consistent with obstructive airways disease (COPD). 2. Suspicious 8.5 mm spiculated nodule in the posterobasal segment of the left lower lobe, concerning for neoplasm. Short interval follow-up versus percutaneous sampling is recommended. 3. Horseshoe configuration of the kidneys. Right nonobstructing nephrolithiasis. 4. Enlarged prostate gland with periurethral gland hyperplasia and a prominent median lobe that projects into the urinary bladder base. Correlate with PSA. 5. Sigmoid diverticulosis without evidence of diverticulitis. 6. 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 7. Multivessel coronary artery calcifications and atherosclerotic changes of the aorta. 10.12 TTE Conclusions 1. Normal left ventricular systolic function. Normal left ventricular cavity size. Normal left ventricular wall thickness. Ejection fraction is visually estimated at 60 %. 2. Trace mitral regurgitation. 3. Estimated peak PA systolic pressure 33 mmHg. There is mild tricuspid regurgitation. Hx of Present Illness A 72-year-old male, past medical history of COPD, positive smoking history, prior epididymitis, high cholesterol, essential hypertension, who was brought in by ambulance today because he was having shortness of breath. The patient states he did have shortness of breath for the last 4 days. He has been having positive mild productive cough as well and some mild headache symptoms as well, but no fevers or chills. No chest pain. No diarrhea or constipation. No hemoptysis. No nausea or vomiting. The patient apparently lives alone and smokes about a pack a day. He has been doing that for the last 60 years. When he came in today he had a chest x-ray done that showed bilateral chronic lung changes, but no evidence of any acute cardiopulmonary disease. Hospital Course 72 yo M with extensive tobacco hx presented with SOB, found to have lung lesion. For lung lesion pt seen by pulm. Inpatient PFTs ordered but results not yet available at time of discharge. IR biopsy of lesion requested but could not be done as lesion so small. Pt will also need outpatient PET. Pt will f/u with pulm within 1-2w to continue this workup Pt frequently complained of dry mouth/scratchy throat. Pt seen by ENT in outpatient setting within past 4 weeks. Those clinic notes personally reviewed, notable for postcricoid erythema, suggestive of LRP. Pt started on BID PPI and advised to f/u with PCP Home Meds Reported Medications Albuterol Sulfate* (Ventolin HFA*) 18 Gm Hfa.aer.ad, 2 PUFF INHALATION Q6H, #1 INHALER 05/20/17 Ipratropium-Albuterol (Ipratropium-Albuterol) 0.5-3 Mg/3 Ml Ampul.neb, 3 ML INHALATION BID, #30 VIAL 05/20/17 Cholecalciferol* (Vitamin D3*) 1,000 Unit Tablet, 3000 UNIT PO DAILY, TAB 05/20/17 Lorazepam* (Lorazepam*) 0.5 Mg Tablet, 0.5 MG PO HS Y for ANXIETY, TAB 05/20/17 Montelukast Sodium* (Singulair*) 10 Mg Tablet, 10 MG PO QHS, #30 TAB 05/20/17 Olmesartan Medoxomil (Benicar) 20 Mg Tablet, 20 MG PO QAM, #30 TAB 05/20/17 Follow-up Plan pulm within 1-2w PCP within 1w Primary Care Provider Marissa Currie [address] [facility] [address], [place] [address] Time spent on discharge: > 30 minutes Pending Labs Laboratory Tests Test 05/28/17 06:10 White Blood Count 9.610^3/ul (4.8-10.8) Red Blood Count 4.6310^6/ul (4.70-6.10) Hemoglobin 14.0g/dl (14.0-18.0) Hematocrit 41.4% (42.0-52.0) Mean Corpuscular Volume 89.4fl (82.0-101.0) Mean Corpuscular Hemoglobin 30.2pg (29.0-33.0) Mean Corpuscular Hemoglobin Concent 33.8g/dl (32.0-37.0) Red Cell Distribution Width 14.7% (11.5-14.5) Platelet Count 88358^3/UL (140-415) Mean Platelet Volume 12.2fl (7.4-10.4) Neutrophils % 59.0% (39.0-77.0) Segmented Neutrophils % (Manual) 57% (39-77) Band Neutrophils % (Manual) 1% (0-4) Lymphocytes % 21.2% (15.0-51.0) Lymphocytes % (Manual) 21% (15-51) Reactive Lymphocytes % (Manual) 4% (0-0) Monocytes % 11.7% (0.0-11.0) Monocytes % (Manual) 13% (0-11) Eosinophils % 2.2% (0.0-7.0) Eosinophils % (Manual) 4% (0-7) Basophils % 0.5% (0.0-2.0) Nucleated Red Blood Cells % 0.0/100WBC (0.0-0.0) Neutrophils # 5.710^3/ul (1.6-7.5) Neutrophils # (Manual) 5.510^3/ul (1.7-7.5) Band Neutrophils # 0.010^3/ul (0.0-0.6) Absolute Lymphocytes (Manual) 2.010^3/ul (0.8-2.9) Lymphocytes # 2.010^3/ul (0.8-2.9) Reactive Lymphocytes # 0.310^3/ul (0.0-0.0) Monocytes # 1.110^3/ul (0.3-0.9) Absolute Monocytes (Manual) 1.210^3/ul (0.3-0.9) Eosinophils # 0.210^3/ul (0.0-0.5) Basophils # 0.110^3/ul (0.0-0.1) Nucleated Red Blood Cells # 0.010^3/ul (0.0-0.0) Platelet Estimate NORMAL Giant Platelets 1% (0-0) Sodium Level 136mmol/L (135-144) Potassium Level 3.9mmol/L (3.5-5.1) Chloride Level 106mmol/L (97-110) Carbon Dioxide Level 26mmol/L (21-31) Anion Gap 8 (8-16) Blood Urea Nitrogen 27mg/dl (7-20) Creatinine 0.94mg/dl (0.61-1.24) Glucose Level 68mg/dl (70-220) Calcium Level 8.2mg/dl (8.4-10.2) Copies To: CC: GOSIA CRAWFORD ELLEN MD May 28, 2017 15:18
--- NOTE | 2017-05-28 15:57 | PDOCDIS ---
Discharge Instructions DIAGNOSIS Discharge Diagnosis lung lesion, throat discomfort most likely 2/2 silent GERD CONDITION Patient Condition: Stable HOME CARE INSTRUCTIONS: Special Diet: Cardiac FOLLOW UP/APPOINTMENTS Follow-up Plan Follow up with your regular doctor within 1 week Follow up with the lung doctor (Pierre) within 1-2 weeks Office Address [address] [place] [address], [address] [place] [address] Office REAGAN CLAYTON MD May 28, 2017 15:57
[2017-05-28] MEDS ORDERED: LORAZEPAM 0.5 MG TAB PO ONE (16:00)
--- NOTE | 2017-05-29 18:26 | RADRPT ---
Vent Rate: 54 bpm RR Interval: 0 msec DE Interval: 132 msec QRS Duration: 96 msec QT Interval: 412 msec QTC Interval: 390 msec P-R-T Malakoff: 82 - 76 - 80 degrees Sinus bradycardia Otherwise normal ECG Electronically Signed By: Ammon Ross [id number]
--- NOTE | 2017-05-29 18:28 | RADRPT ---
Vent Rate: 48 bpm RR Interval: 0 msec [place] Interval: 128 msec QRS Duration: 94 msec QT Interval: 454 msec QTC Interval: 405 msec P-R-T Ethel: 76 - 64 - 84 degrees Marked sinus bradycardia Nonspecific T wave abnormality Abnormal ECG Electronically Signed By: Ammon Ross [id number]
== END 2017-05-28 18:34 | disposition home or self-care (01) | DRG 191 ==
LOC: E/R 13:21 → MS2 15:03 → TEL 05-26 16:28
PROVIDERS: ADMIT Internal Medicine; ATTEND Internal Medicine
DX: J44.1 Chronic obstructive pulmonary disease with (acute) exacerbation (principal); C34.90 Malignant neoplasm of unspecified part of unspecified bronchus or lung; E86.0 Dehydration; Q76.3 Congenital scoliosis due to congenital bony malformation; I10 Essential (primary) hypertension; F17.210 Nicotine dependence, cigarettes, uncomplicated; F41.9 Anxiety disorder, unspecified; J20.9 Acute bronchitis, unspecified; J44.0 Chronic obstructive pulmonary disease with (acute) lower respiratory infection; R10.9 Unspecified abdominal pain; Q63.1 Lobulated, fused and horseshoe kidney; R07.9 Chest pain, unspecified; K21.9 Gastro-esophageal reflux disease without esophagitis
CPT/HCPCS: 36415; 70450; 71010; 71260; 74177; 80048; 80053; 80061; 81003; 82550; 82553; 83036; 83605; 83735; 84100; 84439; 84443; 84484; 85025; 85610; 85730; 87040; 87086; 92610; 93005; 93306; 94060; 94640; 94644; 94664; 94726; 94729; 96374; 96375; 97110; 97116; 97163; 97530; J1644; J1956; J2060; J2920; J2930; J7030; Q9967

== ENCOUNTER 2017-07-05 23:15 | Inpatient (IN) | payer MEDICARE, OTHER ==
[~2017-07-05] VITALS: Ht 160 cm; Wt 60.5 kg
[~2017-07-05 23:15] MED LIST changes: +ALBU18HF INHALATION; -ALBUTEROL 0.083% (NEB) 2.5 MG/3 ML AMP ONE; +CHOL100062 PO; +GUAI600T14 PO; +IPRA3AMP INHALATION; +LORA0.5T PO; +MONT10TA21 PO; +NICO1PAT43 TD; +PANT40TA4 PO
[2017-07-05 23:30] VITALS: TEMP 98.1
[2017-07-05] MEDS ORDERED: LACTATED RINGER'S 1,000 ML IV ONE (23:30)
--- NOTE | 2017-07-05 23:35 | RADRPT ---
PROCEDURE: Noncontrast CT Head. CLINICAL INDICATION: Weakness. Rule out bleed. TECHNIQUE: Noncontrast CT of the head was obtained. The administered radiation dose was CTDI vol = 44.03 mGy, DLP = 720.23 mGy-cm. One or more of the following dose reduction techniques were used: Au tomated exposure control, Adjustment of the mA and/or kV according to patient size, or Use of iterat regino reconstruction technique. COMPARISON: CT brain 05/20/2017 FINDINGS: There is no acute intracranial hemorrhage, midline shift, or mass effect. The cerebral shook-white ma tter differentiation appears preserved. No extra-axial collection is seen. There is mild diffuse cer ebral volume loss with compensatory mild diffuse cerebral sulcal and ventricular enlargement, stable . Low attenuation scattered in the periventricular and deep cerebral white matter is nonspecific, bu t suggestive of mild chronic microangiopathic change, stable. The basal cisterns are preserved. Ther e is mild diffuse cerebellar volume loss. There is bilateral aphakia. The orbits are otherwise gross ly unremarkable. A tiny retention cyst or polyp in the left anterior maxillary sinus is stable. Ther e is mild mucosal thickening in the right inferomedial frontal sinus and bilateral ethmoid sinuses. No air-fluid levels. The visualized mastoid air cells are clear. No acute fracture or suspicious oss eous lesion is identified. IMPRESSION: 1. No evidence of an acute intracranial process. 2. Mild diffuse cerebral and cerebellar volume loss, stable. 3. Evidence of mild chronic microangiopathic cerebral white matter change, stable. RPTAT: [facility] Physician Jeane Date Time Electronically viewed and signed by Physician Jeane on 07/05/2017 23:35 SACHI/
--- NOTE | 2017-07-05 23:43 | RADRPT ---
PROCEDURE: Chest xray. CLINICAL INDICATION: Abdominal pain TECHNIQUE: A portable upright AP view of the chest was obtained. COMPARISON: 05/26/2017. FINDINGS: The cardiomediastinal silhouette is within normal limits. Atherosclerotic calcifications are again noted in the aorta. The lungs are well expanded and show normal vascularity. No focal opacity, pleu ral effusion, or pneumothorax is identified. The skeletal structures and soft tissues are unremarka ble. IMPRESSION: No acute intrathoracic abnormality. RPTAT:HKMK .Yoli Hardin MD, MD Date Time Electronically viewed and signed by .Yoli Hardin MD, on 07/05/2017 23:43 .K/
[2017-07-06] VITALS (12 sets, daily range): BP systolic 123–154; BP diastolic 59–70; PULSE 40–57; RESP 16–18; Ht 160 cm; Wt 60.5 kg
[2017-07-06] MEDS ORDERED: ASPIRIN 81 MG TAB PO ONE
[2017-07-06 00:21] LABS: INR 0.91; PROTIME 12.2 Sec (12.2-14.2)
--- NOTE | 2017-07-06 00:23 | ERD ---
ER Documentation Chief Complaint Chief Complaint bib ra c/o dizziness since 2029; feels like room is spinning; new onset HPI 72-year-old man brought in by EMS for complaints of dizziness since about 4:56 PM this afternoon. Patient states he feels off balance and complains of diplopia from the left eye he denies slurred speech, no weakness in his arms or legs, no fevers or chills, no chest pain or shortness of breath, no complaints of headache. Patient denies previous similar symptoms. ROS All systems reviewed and are negative except as per history of present illness. Medications Home Meds Active Scripts Guaifenesin (Guaifenesin) 600 Mg Tablet.sa, 600 MG PO BID for 14 Days, #28 TAB Prov:REAGAN CLAYTON MD 05/28/17 Pantoprazole* (Pantoprazole*) 40 Mg Tablet.dr, 40 MG PO BID@,18 for 30 Days, # 60 TAB Prov:REAGAN CLAYTON MD 05/28/17 Nicotine* (Nicotine* Patch) 7 mg/day Patch, 1 PATCH TD DAILY for 14 Days, #14 PATCH Prov:REAGAN CLAYTON MD 05/28/17 Reported Medications Albuterol Sulfate* (Ventolin HFA*) 18 Gm Hfa.aer.ad, 2 PUFF INHALATION Q6H, #1 INHALER 05/20/17 Ipratropium-Albuterol (Ipratropium-Albuterol) 0.5-3 Mg/3 Ml Ampul.neb, 3 ML INHALATION BID, #30 VIAL 05/20/17 Cholecalciferol* (Vitamin D3*) 1,000 Unit Tablet, 3000 UNIT PO DAILY, TAB 05/20/17 Lorazepam* (Lorazepam*) 0.5 Mg Tablet, 0.5 MG PO HS Y for ANXIETY, TAB 05/20/17 Montelukast Sodium* (Singulair*) 10 Mg Tablet, 10 MG PO QHS, #30 TAB 05/20/17 Allergies Allergies: Coded Allergies: No Known Allergy (Unverified , 05/20/17) PMhx/Soc Hypertension, COPD, gastritis, dyslipidemia History of Surgery: Yes (APPENDECTOMY) Anesthesia Reaction: No Hx Neurological Disorder: No Hx Respiratory Disorders: Yes (COPD,ASTHMA) Hx Cardiac Disorders: Yes (HTN) Hx Psychiatric Problems: No Hx Miscellaneous Medical Probl: No Hx Alcohol Use: No Hx Substance Use: No Hx Tobacco Use: Yes FmHx Family History: No diabetes Physical Exam Vitals Vital Signs Date Time Temp Pulse Resp B/P Pulse Ox O2 Delivery O2 Flow Rate FiO2 07/06/17 02:00 57 22 132/63 98 Room Air 07/06/17 00:30 50 20 137/67 98 Room Air 07/05/17 23:30 98.1 60 20 136/65 98 Room Air 07/05/17 23:19 98.1 60 20 143/70 98 Physical Exam GENERAL: Well-developed, well-nourished, well-hydrated, in no apparent distress , looks nontoxic in appearance HEENT: Moist mucous membranes, pink conjunctiva, no cervical spine tenderness or step-off deformities, no goiter, no jaundice or icterus, extraocular movements intact without pain. No submandibular induration, and no pharyngeal erythema NEURO: Alert and oriented 3, cranial nerves II through XII intact bilaterally, pupils equal round reactive to light, no focal deficits or facial asymmetry, sensation intact distally Strength 5/5 in upper and lower extremities bilaterally, no pronator drift, no dysmetria, no asterixis, Romberg test is equivocal as patient is able to maintain upright posture on his own and does not need our assistance but does have an appreciable sway. CARDIAC: Bradycardic and regular, no murmurs rubs or gallops LUNGS: Clear bilaterally no wheezing crackles or stridor ABDOMEN: Soft nontender, no guarding, no rigidity, no rebound, no psoas sign no obturator sign. Normoactive bowel sounds SKIN: Warm and dry to touch, no abrasions, contusions, or hematomas, no lacerations, no ecchymosis, no target lesions, and without ulcers EXTREMITIES: No clubbing cyanosis or edema, calves are bilaterally symmetrical, no Homans sign, no popliteal cord sign. Distal pulses equal and bilateral PSYCH: Normal affect without agitation or irritability Result Diagram: 07/05/175 07/05/17 2345 Results 24 hrs Laboratory Tests Test 07/05/17 23:45 07/05/17 23:50 White Blood Count 7.410^3/ul Red Blood Count 4.4410^6/ul Hemoglobin 13.2g/dl Hematocrit 39.9% Mean Corpuscular Volume 89.9fl Mean Corpuscular Hemoglobin 29.7pg Mean Corpuscular Hemoglobin Concent 33.1g/dl Red Cell Distribution Width 14.3% Platelet Count 99026^3/UL Mean Platelet Volume 11.9fl Neutrophils % 54.1% Lymphocytes % 28.6% Monocytes % 11.8% Eosinophils % 4.1% Basophils % 0.9% Nucleated Red Blood Cells % 0.0/100WBC Neutrophils # 4.010^3/ul Lymphocytes # 2.110^3/ul Monocytes # 0.910^3/ul Eosinophils # 0.310^3/ul Basophils # 0.110^3/ul Nucleated Red Blood Cells # 0.010^3/ul Prothrombin Time 12.2Sec Prothrombin Time Ratio 1.0 INR International Normalized Ratio 0.91 Sodium Level 139mmol/L Potassium Level 4.3mmol/L Chloride Level 107mmol/L Carbon Dioxide Level 26mmol/L Anion Gap 10 Blood Urea Nitrogen 23mg/dl Creatinine 1.28mg/dl Glucose Level 113mg/dl Calcium Level 8.9mg/dl Total Bilirubin 0.1mg/dl Direct Bilirubin 0.00mg/dl Indirect Bilirubin 0.1mg/dl Aspartate Amino Transf (AST/SGOT) 16IU/L Alanine Aminotransferase (ALT/SGPT) 31IU/L Alkaline Phosphatase 121IU/L Troponin I < 0.012ng/ml Total Protein 6.3g/dl Albumin 3.5g/dl Globulin 2.80g/dl Albumin/Globulin Ratio 1.25 Lipase 43U/L Ethyl Alcohol Level < 10.0mg/dl Urine Color YELLOW Urine Clarity CLEAR Urine pH 5.0 Urine Specific [place] 1.017 Urine Ketones NEGATIVEmg/dL Urine Nitrite NEGATIVEmg/dL Urine Bilirubin NEGATIVEmg/dL Urine Urobilinogen NEGATIVEmg/dL Urine Leukocyte Esterase NEGATIVELeu/ul Urine Hemoglobin NEGATIVEmg/dL Urine Glucose NEGATIVEmg/dL Urine Total Protein NEGATIVEmg/dl Current Medications Medications (Trade) Dose Ordered Sig/Baljeet Route PRN Reason Start Time Stop Time Status Last Admin Dose Admin Lactated Ringer's (Lr) 1,000 ml @ 1,000 mls/hr Q1H ONCE IV 07/05/17 23:30 07/06/17 00:29 DC 07/06/17 00:01 Aspirin (Aspirin) 324 mg ONCE ONCE PO 07/06/17 00:00 07/06/17 00:01 DC 07/06/17 00:05 IV Flush 10 ml 10 ml STK-MED ONCE .ROUTE 07/06/17 00:59 07/06/17 01:00 DC 07/06/17 01:10 Sodium Chloride 100 ml @ ud STK-MED ONCE .ROUTE 07/06/17 00:59 07/06/17 01:00 DC 07/06/17 01:10 Iohexol (Omnipaque) 100 ml @ ud STK-MED ONCE .ROUTE 07/06/17 00:59 07/06/17 01:00 DC 07/06/17 01:10 Procedures/MDM IV line was established patient was placed on cardiac care nurse rhythm strip revealed a sinus bradycardia at 60 bpm with upright P and T waves. Patient was afebrile, blood sugar was normal. EKG performed, read by me revealed a sinus bradycardia 57 bpm, normal axis, right ventricular conduction delay with incarceration of 102 ms, no concerning ST elevations or depressions noted. CT scan of the brain was immediately performed that was negative for acute bleed mass or shift. I administered aspirin 324 mg p.o. for neuroprotective measures and lactated ringer 1 L IV 1 CBC was normal and electrolytes revealed a BUN/creatinine of 23/1.3, liver function tests were normal, troponin was negative, coagulation profile was normal, ethanol level was negative Patient may have a posterior (or anterior) circulation stroke or vessel stenosis so a CT angiogram of the cerebrum and neck has been ordered results are pending I will follow-up if there is an anterior circulation arterial occlusion patient may require transfer to a higher level of care otherwise patient can be admitted here. CTA was negative for acute pathology, please refer to radiologist dictation for full report. Neuro critical Care: Time: 45 minutes, this was time separate from other billable procedures. Treatments/Evaluations: Close monitoring and treatment of unstable vital signs, cardiorespiratory, and neurologic status, while maintaining tight balance of fluid, respiratory, and cardiac interventions. Patient will be admitted to telemetry setting for continued medical management, neurology consultation, and MRI. Departure Diagnosis: Primary Impression: Ataxic gait Additional Impression: Stroke CVA mechanism: stenosis Precerebral and cerebral artery: posterior cerebral artery Laterality of affected vessel: unspecified Qualified Code: I63.539 - Cerebrovascular accident (CVA) due to stenosis of posterior cerebral artery, unspecified blood vessel laterality Condition: Fair ZOHRABIAN,STONEY MD Jul 06, 2017 00:23
[2017-07-06 00:28] LABS: ADD UMIC NO; UR ASCORBIC ACID NEGATIVE (NEGATIVE); UR BILIRUBIN (Dip) NEGATIVE (NEGATIVE); UR BLOOD (Dip) NEGATIVE (NEGATIVE); UR CLARITY CLEAR (CLEAR); UR COLOR YELLOW (YELLOW); UR GLUCOSE (Dip) NEGATIVE (NEGATIVE); UR KETONES (Dip) NEGATIVE (NEGATIVE); UR LEUKOCYTE ESTERASE (Dip) NEGATIVE Leu/ul (NEGATIVE); UR NITRITE (Dip) NEGATIVE (NEGATIVE); UR SPECIFIC GRAVITY (Dip) 1.017 (1.003-1.030); UR TOTAL PROTEIN (Dip) NEGATIVE (NEGATIVE); UR UROBILINOGEN (Dip) NEGATIVE (NEGATIVE)
[2017-07-06 00:39] LABS: ALANINE AMINOTRANSFERASE 31 IU/L (13-69); ALBUMIN 3.5 g/dl (3.3-4.9); ALBUMIN/GLOBULIN RATIO 1.25; ALKALINE PHOSPHATASE 121 IU/L (42-121); ANION GAP 10 (8-16); ASPARTATE AMINO TRANSFERASE 16 IU/L (15-46); BILIRUBIN,INDIRECT 0.1 mg/dl (0-1.1); BILIRUBIN,TOTAL 0.1 mg/dl (0.2-1.3); BLOOD UREA NITROGEN 23 mg/dl (7-20); CALCIUM 8.9 mg/dl (8.4-10.2); CARBON DIOXIDE 26 mmol/L (21-31); CHLORIDE 107 mmol/L (97-110); CREATININE 1.28 mg/dl (0.61-1.24); GLUCOSE 113 mg/dl (70-220); POTASSIUM 4.3 mmol/L (3.5-5.1); SODIUM 139 mmol/L (135-144); TOTAL PROTEIN 6.3 g/dl (6.1-8.1)
[2017-07-06 00:56] LABS: BASOPHIL # 0.1 10^3/ul (0.0-0.1); BASOPHILS % 0.9 % (0.0-2.0); EOSINOPHILS # 0.3 10^3/ul (0.0-0.5); EOSINOPHILS % 4.1 % (0.0-7.0); HEMATOCRIT 39.9 % (42.0-52.0); HEMOGLOBIN 13.2 g/dl (14.0-18.0); LYMPHOCYTES # 2.1 10^3/ul (0.8-2.9); LYMPHOCYTES % 28.6 % (15.0-51.0); MEAN CORPUSCULAR HEMOGLOBIN 29.7 pg (29.0-33.0); MEAN CORPUSCULAR HGB CONC 33.1 g/dl (32.0-37.0); MEAN CORPUSCULAR VOLUME 89.9 fl (82.0-101.0); MEAN PLATELET VOLUME 11.9 fl (7.4-10.4); MONOCYTE # 0.9 10^3/ul (0.3-0.9); MONOCYTES % 11.8 % (0.0-11.0); NEUTROPHILS % 54.1 % (39.0-77.0); PLATELET COUNT 173 10^3/UL (140-415); RED BLOOD COUNT 4.44 10^6/ul (4.70-6.10); RED CELL DISTRIBUTION WIDTH 14.3 % (11.5-14.5); WHITE BLOOD COUNT 7.4 10^3/ul (4.8-10.8)
[2017-07-06] MEDS ORDERED: IOHEXOL 100 ML ONE (00:59)
[2017-07-06] MEDS ORDERED: SOD CHLORIDE 0.9% 100 ML ONE (00:59)
[2017-07-06 01:01] LABS: TROPONIN-I < 0.012 ng/ml (0.00-0.12)
[2017-07-06 02:04] LABS: ETHANOL < 10.0 mg/dl
--- NOTE | 2017-07-06 02:22 | RADRPT ---
PROCEDURE: CT angiogram of the head and neck with contrast. CLINICAL INDICATION: Weakness. TECHNIQUE: CT angiogram of the head and neck was performed on a multi-detector high-resolution CT scanner. Contiguous axial images were obtained after the dynamic injection of 100 cc Omnipaque 350 intravenous contrast. Coronal and sagittal as well as maximal intensity projection reformations we re obtained. 3-D post processing was also performed. Images were reviewed on a PACS workstation. D ICOM images are available. One or more of the following dose reduction techniques were used: - Automated exposure control. - Adjustment of the mA and/or kV according to patient size. - Use of iterative reconstruction technique. Exam CTD/vol = 15.07 mGy. Total exam DLP = 656.85 mGy-cm. COMPARISON: None. FINDINGS: Neck: The visualized aortic arch and proximal great vessels demonstrates scattered atherosclerotic c alcifications. Bilateral common carotid arteries are normal course and caliber. Bilateral carotid bulbs and bifurcations demonstrate mild atherosclerotic calcifications. Bilateral internal and exte rnal carotid arteries are of normal course and caliber. The left vertebral artery is dominant. Bila teral vertebral arteries are otherwise patent. There is no significant stenosis or occlusion. Ther e is no evidence of aneurysm or dissection. There moderate centrolobular emphysema with mild biapica l scarring. Brain: Bilateral distal internal carotid arteries are normal course and caliber with scattered athe rosclerotic calcifications on the left. Bilateral anterior and middle cerebral arteries are within normal limits. Bilateral distal vertebral arteries are of normal course and caliber. The basilar a rtery is intact. The left distal vertebral artery is dominant. Bilateral posterior cerebral arterie s are otherwise patent. There is no significant stenosis or occlusion. There is no evidence of ane urysm or vascular malformation. The venous structures are unremarkable. IMPRESSION: Mild vascular calcifications reflective of atherosclerosis. Dominant left vertebral artery. Otherwise unremarkable CT angiogram of the head and neck. Moderate centrolobular emphysema and mild biapical scarring. No hemodynamically significant carotid stenosis. Direct measurements of vessel diameter was made in reference to measurements of the distal internal carotid artery diameter. .Armando Rutherford MD, Date Time Electronically viewed and signed by .Armando Rutherford MD, on 07/06/2017 02:21 .T/
[2017-07-06] MEDS ORDERED: ONDANSETRON 4 MG INJ IV PRN (04:30)
[2017-07-06 08:32] LABS: BASOPHIL # 0.1 10^3/ul (0.0-0.1); BASOPHILS % 1.3 % (0.0-2.0); EOSINOPHILS # 0.4 10^3/ul (0.0-0.5); EOSINOPHILS % 5.5 % (0.0-7.0); HEMATOCRIT 39.5 % (42.0-52.0); HEMOGLOBIN 12.9 g/dl (14.0-18.0); LYMPHOCYTES # 2.2 10^3/ul (0.8-2.9); LYMPHOCYTES % 30.9 % (15.0-51.0); MEAN CORPUSCULAR HEMOGLOBIN 29.4 pg (29.0-33.0); MEAN CORPUSCULAR HGB CONC 32.7 g/dl (32.0-37.0); MEAN PLATELET VOLUME 11.7 fl (7.4-10.4); MONOCYTE # 0.8 10^3/ul (0.3-0.9); MONOCYTES % 11.6 % (0.0-11.0); NEUTROPHIL # 3.6 10^3/ul (1.6-7.5); NEUTROPHILS % 50.3 % (39.0-77.0); PLATELET COUNT 168 10^3/UL (140-415); RED BLOOD COUNT 4.39 10^6/ul (4.70-6.10); WHITE BLOOD COUNT 7.1 10^3/ul (4.8-10.8)
[2017-07-06 08:57] LABS: ALBUMIN/GLOBULIN RATIO 1.11; BILIRUBIN,INDIRECT 0.3 mg/dl (0-1.1); BILIRUBIN,TOTAL 0.3 mg/dl (0.2-1.3); CALCIUM 8.8 mg/dl (8.4-10.2); CREATININE 1.01 mg/dl (0.61-1.24); TOTAL PROTEIN 5.7 g/dl (6.1-8.1)
[2017-07-06] MEDS ORDERED: NICOTINE (7 MG/24 HR) PATCH TRANSDERM SCH (09:00)
[2017-07-06] MEDS: HEPARIN 5,000 UNIT/0.5 ML VIAL SC SCH ×2 (09:00→20:39)
[2017-07-06] MEDS: ASPIRIN 81 MG TAB PO SCH (09:00)
[2017-07-06 09:23] LABS: THYROID STIMULATING HORMONE 1.98 MIU/L (0.465-4.680)
--- NOTE | 2017-07-06 10:09 | HP ---
Date/Time of Note Date/Time of Note DATE: 07/06/17 TIME: 10:04 Assessment/Plan VTE Prophylaxis VTE Prophylaxis Intervention: heparin Lines/Catheters IV [facility] Urinary Cath still in place: No Assessment/Plan Assessment/Plan 1. Rule out CVA -Head CT is negative -Follow-up CTA of head and neck and MRI results -Order 2D echo -Neurology consult -Physical therapy evaluation -Aspirin, statin and subcutaneous heparin for DVT prophylaxis 2. History of asthma, no sign of exacerbation -Continue home meds with adjustment as needed 3. Tobacco abuse -Nicotine patch while in-house -Advised about smoking cessation HPI/ROS Admit Date/Time Admit Date/Time Jul 06, 2017 at 02:24 Hx of Present Illness This is a 80-year-old male with a history of asthma and long smoking history who presented to the ER complaining of visual disturbance and gait instability. He said a few hours prior to arrival to the ER, he had a sudden onset of visual disturbance which he described as "I could not concentrate with my eyes" . It seems like objects that he sees appears to be shaking and has had likely diplopia. Because of this he is gait was unstable. He denied falling down. Denied focal weakness or numbness. He denied headache, recent trauma, chest pain, shortness of breath, fever or seizure-like activities. Denied similar symptoms in the past. When he presented to the ER head CT shows no acute findings. PMH/Family/Social Social History Smoking Status: Current every day smoker Exam/Review of Systems Vital Signs Vitals Vital Signs Date Time Temp Pulse Resp B/P Pulse Ox O2 Delivery O2 Flow Rate FiO2 07/06/17 08:11 51 07/06/17 07:53 98.0 18 123/59 98 07/06/17 03:00 Room Air Intake and Output 07/05/17 07/05/17 07/06/17 15:00 23:00 07:00 Intake Total 50 ml Output Total 200 ml Balance -150 ml Exam Constitutional: alert, oriented, well developed Head: atraumatic, normocephalic Eyes: PERRL Respiratory: clear to auscultation, normal air movement Cardiovascular: nl pulses, regular rate and rhythm Gastrointestinal: non-tender, soft Extremities: normal pulses Neurological: nl speech, nl strength Labs Result Diagram: 07/06/17 0736 07/06/17 0736 Medications Medications Current Medications Ondansetron HCl (Zofran Inj) 4 mg Q6H PRN IV NAUSEA AND/OR VOMITING; Start at 04:30 Heparin Sodium (Porcine) (Heparin (5000 Units/0.5 ml)) 5,000 unit BID SC ; Start 07/06/17 at 09:00 Aspirin (Aspirin) 81 mg DAILY PO ; Start 07/06/17 at 09:00 Atorvastatin Calcium (Lipitor) 20 mg HS PO ; Start 07/06/17 at 21:00 Nicotine (Nicoderm 21 Mg/ 24hr) 1 patch DAILY TRANSDERM ; Start 07/06/17 at 11: 00 ZENIA PARKER MD Jul 06, 2017 10:09
[2017-07-06] MEDS: ALBUTEROL HFA 8 GM INHALER INH SCH ×3 (10:30→20:38)
[2017-07-06] MEDS ORDERED: PANTOPRAZOLE (EC) 40 MG TAB PO ONE (10:30)
[2017-07-06] MEDS: NICOTINE (21 MG/24 HR) PATCH TRANSDERM SCH (10:42)
[2017-07-06] MEDS: ALBUTEROL/IPRATROPIUM (NEB) 3 ML AMP HHN SCH ×2 (11:14→20:05)
--- NOTE | 2017-07-06 15:15 | CONS ---
Date/Time of Note Date/Time of Note DATE: 07/06/17 TIME: 15:09 Assessment/Plan Assessment/Plan Chief Complaint/Hosp Course Double vision and gait imbalance Problems: Additional Assessment/Plan This is a 80-year-old male with history of chronic smoking came to the emergency room with symptoms of double vision, visual disturbance and gait instability. His symptom comes and go and was having difficulty concentrating. He also reported instability of the gait but has not fallen. He denies dizziness, focal weakness or numbness. CT scan of the brain was unremarkable. He was admitted for further evaluation and management. During this examination he did not have double vision. Examination was nonfocal. My impression is that he likely had brainstem stroke. Other differential diagnosis to rule out posterior circulation insufficiency. Plan 1 MRI of the brain 2 MR angiogram of head and neck 3 continue aspirin and atorvastatin 4 Dr. Galdamez to follow in a.m. Consultation Date/Type/Reason Admit Date/Time Jul 06, 2017 at 02:24 Date of Consultation: Jul 06, 2017 Type of Consultation: Neurology Reason for Consultation Double vision and gait imbalance Hx of Present Illness This is a 80-year-old male with history of chronic smoking came to the emergency room with symptoms of double vision, visual disturbance and gait instability. His symptom comes and go and was having difficulty concentrating. He also reported instability of the gait but has not fallen. He denies dizziness, focal weakness or numbness. CT scan of the brain was unremarkable. He was admitted for further evaluation and management. During this examination he did not have double vision. Constitutional: no complaints Eyes: visual change ENT: no complaints Respiratory: no complaints Cardiovascular: no complaints Gastrointestinal: no complaints Genitourinary: no complaints Musculoskeletal: no complaints Skin: no complaints Neurologic: other (Gait imbalance) Endocrine: no complaints Lymphatic: no complaints Psychological: nl mood/affect, no complaints Immunologic: no complaints Social History Smoking Status: Current every day smoker Exam/Review of Systems Vital Signs Vitals Vital Signs Date Time Temp Pulse Resp B/P Pulse Ox O2 Delivery O2 Flow Rate FiO2 07/06/17 12:24 47 07/06/17 11:55 98.0 18 136/63 98 07/06/17 11:14 21 07/06/17 03:00 Room Air Intake and Output 07/05/17 07/05/17 07/06/17 15:00 23:00 07:00 Intake Total 50 ml Output Total 200 ml Balance -150 ml Exam Alert, awake, oriented 3, neck is supple no carotid bruit, no meningeal signs, cranial nerve exam was unremarkable. Nonfocal motor and sensory exam. Constitutional: alert, oriented, well developed Psych: nl mood/affect, no complaints Head: atraumatic, normocephalic Eyes: EOMI, nl conjunctiva, nl lids, nl sclera ENMT: mucosa pink and moist, nl external ears & nose, nl lips & teeth, nl nasal mucosa & septum Neck: non-tender, supple Respiratory: clear to auscultation, normal air movement Cardiovascular: nl pulses, regular rate and rhythm Gastrointestinal: nl liver, spleen, non-tender, soft Extremities: normal pulses Neurological: nl mental status, nl speech, nl strength Results Result Diagram: 07/06/17 0736 07/06/17 0736 Results 24 hrs Laboratory Tests Test 07/05/17 23:45 07/05/17 23:50 07/06/17 07:36 White Blood Count 7.4 # 7.1 Red Blood Count 4.44 L 4.39 L Hemoglobin 13.2 L 12.9 L Hematocrit 39.9 L 39.5 L Mean Corpuscular Volume 89.9 90.0 Mean Corpuscular Hemoglobin 29.7 29.4 Mean Corpuscular Hemoglobin Concent 33.1 32.7 Red Cell Distribution Width 14.3 14.0 Platelet Count 173 # 168 Mean Platelet Volume 11.9 H 11.7 H Neutrophils % 54.1 50.3 Lymphocytes % 28.6 30.9 Monocytes % 11.8 H 11.6 H Eosinophils % 4.1 5.5 Basophils % 0.9 1.3 Nucleated Red Blood Cells % 0.0 0.0 Neutrophils # 4.0 3.6 Lymphocytes # 2.1 2.2 Monocytes # 0.9 0.8 Eosinophils # 0.3 0.4 Basophils # 0.1 0.1 Nucleated Red Blood Cells # 0.0 0.0 Prothrombin Time 12.2 Prothrombin Time Ratio 1.0 INR International Normalized Ratio 0.91 Sodium Level 139 140 Potassium Level 4.3 4.0 Chloride Level 107 107 Carbon Dioxide Level 26 26 Anion Gap 10 11 Blood Urea Nitrogen 23 H 19 Creatinine 1.28 H 1.01 Glucose Level 113 80 Calcium Level 8.9 8.8 Total Bilirubin 0.1 L 0.3 Direct Bilirubin 0.00 0.00 Indirect Bilirubin 0.1 0.3 Aspartate Amino Transf (AST/SGOT) 16 15 Alanine Aminotransferase (ALT/SGPT) 31 31 Alkaline Phosphatase 121 99 Troponin I < 0.012 Total Protein 6.3 5.7 L Albumin 3.5 3.0 L Globulin 2.80 2.70 Albumin/Globulin Ratio 1.25 1.11 Lipase 43 Ethyl Alcohol Level < 10.0 Urine Color YELLOW Urine Clarity CLEAR Urine pH 5.0 Urine Specific [place] 1.017 Urine Ketones NEGATIVE Urine Nitrite NEGATIVE Urine Bilirubin NEGATIVE Urine Urobilinogen NEGATIVE Urine Leukocyte Esterase NEGATIVE Urine Hemoglobin NEGATIVE Urine Glucose NEGATIVE Urine Total Protein NEGATIVE Hemoglobin A1c 5.8 Triglycerides Level 57 Cholesterol Level 217 H LDL Cholesterol, Calculated 152 HDL Cholesterol 54 Cholesterol/HDL Ratio 4.0 Thyroid Stimulating Hormone (TSH) 1.980 Medications Medications Current Medications Ondansetron HCl (Zofran Inj) 4 mg Q6H PRN IV NAUSEA AND/OR VOMITING; Start at 04:30 Heparin Sodium (Porcine) (Heparin (5000 Units/0.5 ml)) 5,000 unit BID SC ; Start 07/06/17 at 09:00 Aspirin (Aspirin) 81 mg DAILY PO ; Start 07/06/17 at 09:00 Atorvastatin Calcium (Lipitor) 20 mg HS PO ; Start 07/06/17 at 21:00 Nicotine (Nicoderm 21 Mg/ 24hr) 1 patch DAILY TRANSDERM Last administered on t 10:42; Admin Dose 1 PATCH; Start 07/06/17 at 11:00 Lorazepam (Ativan) 0.5 mg HS PRN PO ANXIETY; Start 07/06/17 at 10:30 Montelukast Sodium (Singulair) 10 mg QHS PO ; Start 07/06/17 at 21:00 Pantoprazole (Protonix Tab) 40 mg BID@06,18 PO ; Start 07/06/17 at 18:00 Pantoprazole (Protonix Tab) 40 mg DAILY@06 PO ; Start 07/07/17 at 06:00 TREVIN BIRMINGHAM MD Jul 06, 2017 15:15
--- NOTE | 2017-07-06 16:36 | RADRPT ---
PROCEDURE: MRI brain without IV contrast. CLINICAL INDICATION: Weakness. TECHNIQUE: MRI examination of the brain was performed on a 3T high field MR scanner, following pul se sequences: T1-weighted sagittal, axial, axial FLAIR, T2-weighted axial, coronal GRE sequence gera ges are made including the diffusion images with ADC map. COMPARISON: CT brain, 07/05/2017. FINDINGS: There is mild cerebral atrophy. There are also minimal FLAIR/T2 hyperintensities at the periventric ular/subcortical deep white matters, likely microvascular ischemic changes. The shook/white matter d ifferentiation is well preserved. The diffusion images show no evidence of acute ischemia or recent infarct. The GRE images show no evidence of hemorrhage. There is no other abnormal intra-axial high or lower signal intensity lesion, suggesting tumor, infa rct, bleeding, av malformation or inflammatory lesion. No subdural or epidural hematoma. The pituitary gland is normal. The pontomesencephalic angle is n ormal. The lateral ventricular angle is also normal. The cerebellopontine angle cisterns are clear . There are signal voids of the intracranial arteries and dural sinuses, indicating patency. The visualized paranasal sinuses, orbits and temporal bones are also unremarkable. IMPRESSION: 1. Mild cerebral atrophy. 2. Minimal FLAIR/T2 hyperintensities at the periventricular/subcortical deep white matters, likely microvascular ischemic changes. RPTAT: GG .Pascual Knight MD, MD Date Time Electronically viewed and signed by .Pascual Knight MD, on 07/06/2017 16:35 .Y/
[2017-07-06] MEDS: PANTOPRAZOLE (EC) 40 MG TAB PO SCH (17:28)
[2017-07-06] MEDS ORDERED: LORAZEPAM 0.5 MG TAB PO PRN (18:00)
[2017-07-06] MEDS: MONTELUKAST 10 MG TAB PO SCH (20:38)
[2017-07-06] MEDS ORDERED: ATORVASTATIN 20 MG TAB PO SCH (21:00)
[2017-07-06] MEDS: LORAZEPAM 0.5 MG TAB PO PRN (22:40)
[2017-07-07] VITALS (11 sets, daily range): BP systolic 117–139; BP diastolic 61–86; PULSE 52–66; RESP 16–20
[2017-07-07] MEDS: ALBUTEROL HFA 8 GM INHALER INH SCH ×4 (02:00→20:22)
[2017-07-07] MEDS: PANTOPRAZOLE (EC) 40 MG TAB PO SCH ×3 (06:00→17:22)
[2017-07-07 07:25] LABS: BASOPHIL # 0.1 10^3/ul (0.0-0.1); BASOPHILS % 1.6 % (0.0-2.0); EOSINOPHILS # 0.3 10^3/ul (0.0-0.5); EOSINOPHILS % 4.7 % (0.0-7.0); HEMOGLOBIN 13.7 g/dl (14.0-18.0); LYMPHOCYTES # 1.9 10^3/ul (0.8-2.9); LYMPHOCYTES % 32.6 % (15.0-51.0); MEAN CORPUSCULAR HEMOGLOBIN 29.7 pg (29.0-33.0); MEAN CORPUSCULAR HGB CONC 33.4 g/dl (32.0-37.0); MEAN CORPUSCULAR VOLUME 88.9 fl (82.0-101.0); MEAN PLATELET VOLUME 10.8 fl (7.4-10.4); MONOCYTE # 0.6 10^3/ul (0.3-0.9); MONOCYTES % 11.1 % (0.0-11.0); NEUTROPHIL # 2.9 10^3/ul (1.6-7.5); NEUTROPHILS % 49.5 % (39.0-77.0); PLATELET COUNT 177 10^3/UL (140-415); RED BLOOD COUNT 4.61 10^6/ul (4.70-6.10); RED CELL DISTRIBUTION WIDTH 14.1 % (11.5-14.5); WHITE BLOOD COUNT 5.8 10^3/ul (4.8-10.8)
[2017-07-07] MEDS: ALBUTEROL/IPRATROPIUM (NEB) 3 ML AMP HHN SCH ×2 (07:27→20:11)
[2017-07-07 07:53] LABS: PHOSPHORUS 4.4 mg/dl (2.5-4.9)
[2017-07-07] MEDS ORDERED: NICOTINE (21 MG/24 HR) PATCH TRANSDERM SCH (09:00)
[2017-07-07] MEDS: ASPIRIN 81 MG TAB PO SCH (09:51)
[2017-07-07] MEDS: HEPARIN 5,000 UNIT/0.5 ML VIAL SC SCH ×2 (09:53→20:39)
[2017-07-07] MEDS: NICOTINE (21 MG/24 HR) PATCH TRANSDERM SCH ×2 (09:56→16:51)
--- NOTE | 2017-07-07 15:51 | RADRPT ---
PROCEDURE: MRA Brain. CLINICAL INDICATION: Gait ataxia, diplopia. TECHNIQUE: An MRA of the brain was performed with and without intravenous contrast utilizing the f ollowing sequences: 3-D [id number] images through the intracranial vasculature with post process ed maximal intensity projections in multiple planes. Following the uneventful administration of 20 c c Magnevist. Post processed and maximal intensity projections were obtained and all images were rev iewed on a [employer] PACS system. COMPARISON: Brain MRI 07/06/2017. FINDINGS: The petrous, cavernous, and supraclinoid internal carotid artery segments are normal in caliber with out evidence of significant stenosis. The proximal anterior cerebral and middle cerebral arteries a re patent without significant stenosis. The intradural vertebral arteries, basilar artery and poste rior cerebral arteries are patent without evidence of significant focal stenosis. No aneurysms are i dentified. IMPRESSION: 1. Patent major intracranial arteries. RPTAT: HH .Reese Buckley MD, Date Time Electronically viewed and signed by .Reese Buckley MD, on 07/07/2017 15:51 .N/
--- NOTE | 2017-07-07 15:56 | RADRPT ---
PROCEDURE: MRA Neck with and without contrast. CLINICAL INDICATION: Gait ataxia, diplopia. TECHNIQUE: An MRA of the major cervical arteries was performed utilizing axial 2D time of flight, 3-D [id number] through the carotid bifurcations, and dynamic contrast enhanced 3-D MR angiograph y technique. Source and MIP images were reviewed. 20 cc of Magnevist were given intravenously witho ut complication. COMPARISON: No prior studies are available for comparison. FINDINGS: The origins of the great vessels off the aortic arch are patent without significant stenosis. The c ommon carotid and internal carotid arteries are patent without hemodynamically significant stenosis by NASCET criteria. Direct measurements of vessel diameters was made in reference to measurements of the distal internal carotid artery diameter. The left vertebral artery is dominant. Bilateral vertebral arteries are otherwise patent without hig h-grade stenosis. IMPRESSION: 1. Patent major neck arteries. RPTAT: HH .Reese Buckley MD, Date Time Electronically viewed and signed by .Reese Buckley MD, MD on 07/07/2017 15:55 .N/
--- NOTE | 2017-07-07 17:31 | PN ---
Date/Time of Note Date/Time of Note DATE: 07/07/17 TIME: 17:29 Assessment/Plan VTE Prophylaxis VTE Prophylaxis Intervention: LMWH Lines/Catheters IV Catheter Type (from [facility] [place] [facility] Urinary Cath still in place: No Assessment/Plan Chief Complaint/Hosp Course 72 yo male with episode of diplopia and gait instability, now resolved - Unclear etiology fo this, concenring for posterior circulation ischemia but MRI/MRA benign - Further workup/management per neurology Tobacco use d/o: - Continue NRT Aspirin for CV risk Discharge home pending neurology's blessing Problems: Subjective 24 Hr Interval Summary Free Text/Dictation No further symptoms MRI/MRA without findigns to explain symptoms Feels well Exam/Review of Systems Vital Signs Vitals Vital Signs Date Time Temp Pulse Resp B/P Pulse Ox O2 Delivery O2 Flow Rate FiO2 07/07/17 16:14 64 07/07/17 11: 97.8 18 139/63 96 07/07/17 07:28 21 07/06/17 03:00 Room Air Intake and Output 07/06/17 07/06/17 07/07/17 15:00 23:00 07:00 Intake Total 100 ml 800 ml 300 ml Output Total 600 ml Balance -500 ml 800 ml 300 ml Exam Constitutional: alert, oriented, well developed Psych: nl mood/affect, no complaints Head: atraumatic, normocephalic Eyes: EOMI, PERRL, nl conjunctiva, nl lids, nl sclera ENMT: nl external ears & nose, nl lips & teeth, nl nasal mucosa & septum Neck: non-tender, supple Respiratory: clear to auscultation, normal air movement Cardiovascular: nl pulses, regular rate and rhythm Gastrointestinal: nl liver, spleen, non-tender, soft Musculoskeletal: nl extremities to inspection, nl gait and stance Extremities: normal pulses Neurological: SKIN DRIER II-XII intact, nl mental status, nl speech, nl strength Skin: nl turgor, No rash or lesions Lymph: nl lymph nodes Results Result Diagram: 07/07/17 0701 07/06/17 0736 Results 24 hrs Laboratory Tests Test 07/07/17 07:01 White Blood Count 5.8 Red Blood Count 4.61 L Hemoglobin 13.7 L Hematocrit 41.0 L Mean Corpuscular Volume 88.9 Mean Corpuscular Hemoglobin 29.7 Mean Corpuscular Hemoglobin Concent 33.4 Red Cell Distribution Width 14.1 Platelet Count 177 Mean Platelet Volume 10.8 H Neutrophils % 49.5 Lymphocytes % 32.6 Monocytes % 11.1 H Eosinophils % 4.7 Basophils % 1.6 Nucleated Red Blood Cells % 0.0 Neutrophils # 2.9 Lymphocytes # 1.9 Monocytes # 0.6 Eosinophils # 0.3 Basophils # 0.1 Nucleated Red Blood Cells # 0.0 Hemoglobin A1c 5.7 Phosphorus Level 4.4 Magnesium Level 2.0 Medications Medications Current Medications Ondansetron HCl (Zofran Inj) 4 mg Q6H PRN IV NAUSEA AND/OR VOMITING; Start at 04:30 Heparin Sodium (Porcine) (Heparin (5000 Units/0.5 ml)) 5,000 unit BID SC Last administered on 07/07/17 09:53; Admin Dose 5,000 UNIT; Start 07/06/17 at 09: 00 Aspirin (Aspirin) 81 mg DAILY PO Last administered on 07/07/17 09:51; Admin Dose 81 MG; Start 07/06/17 at 09:00 Atorvastatin Calcium (Lipitor) 20 mg HS PO Last administered on 07/06/17 20: 38; Admin Dose 20 MG; Start 07/06/17 at 21:00 Nicotine (Nicoderm 21 Mg/ 24hr) 1 patch DAILY TRANSDERM Last administered on 16:51; Admin Dose 1 PATCH; Start 07/06/17 at 11:00 Lorazepam (Ativan) 0.5 mg HS PRN PO ANXIETY Last administered on 07/06/17 22: 40; Admin Dose 0.5 MG; Start 07/06/17 at 10:30 Montelukast Sodium (Singulair) 10 mg QHS PO Last administered on 07/06/17 20: 38; Admin Dose 10 MG; Start 07/06/17 at 21:00 Pantoprazole (Protonix Tab) 40 mg BID@06,18 PO Last administered on 07/07/17 17:22; Admin Dose 40 MG; Start 07/06/17 at 18:00 Pantoprazole (Protonix Tab) 40 mg DAILY@06 PO ; Start 07/07/17 at 06:00 Lorazepam (Ativan) 0.5 mg Q8H PRN PO ANXIETY Last administered on 07/07/17 13 :51; Admin Dose 0.5 MG; Start 07/06/17 at 18:00 ALICJA DAVE MD Jul 07, 2017 17:31
[2017-07-07 18:15] LABS: CALCIUM 8.9 mg/dl (8.4-10.2); CREATININE 0.9 mg/dl (0.61-1.24); POTASSIUM 4.4 mmol/L (3.5-5.1)
--- NOTE | 2017-07-07 19:08 | CONS ---
Date/Time of Note Date/Time of Note DATE: 07/07/17 TIME: 19:06 Consult Date/Type/Reason Admit Date/Time Jul 06, 2017 at 02:24 Initial Consult Date 07/06/17 Type of Consultation: Neurology Subjective no complaints, diplopia, ataxia resolved, lasted < 24 h Objective Vital Signs Date Time Temp Pulse Resp B/P Pulse Ox O2 Delivery O2 Flow Rate FiO2 07/07/17 16:14 64 07/07/17 11: 97.8 18 139/63 96 07/07/17 07:28 21 07/06/17 03:00 Room Air Intake and Output 07/06/17 07/06/17 07/07/17 15:00 23:00 07:00 Intake Total 100 ml 800 ml 300 ml Output Total 600 ml Balance -500 ml 800 ml 300 ml Exam AOPx3, fluent speech, CN 2-12 Int, motor, sensory, coord, gait OK Results/Medications Result Diagram: 07/07/17 0701 07/07/17 1728 Results 24 hrs Laboratory Tests Test 07/07/17 07:01 07/07/17 17:28 White Blood Count 5.8 Red Blood Count 4.61 L Hemoglobin 13.7 L Hematocrit 41.0 L Mean Corpuscular Volume 88.9 Mean Corpuscular Hemoglobin 29.7 Mean Corpuscular Hemoglobin Concent 33.4 Red Cell Distribution Width 14.1 Platelet Count 177 Mean Platelet Volume 10.8 H Neutrophils % 49.5 Lymphocytes % 32.6 Monocytes % 11.1 H Eosinophils % 4.7 Basophils % 1.6 Nucleated Red Blood Cells % 0.0 Neutrophils # 2.9 Lymphocytes # 1.9 Monocytes # 0.6 Eosinophils # 0.3 Basophils # 0.1 Nucleated Red Blood Cells # 0.0 Hemoglobin A1c 5.7 Phosphorus Level 4.4 Magnesium Level 2.0 Sodium Level 136 Potassium Level 4.4 Chloride Level 105 Carbon Dioxide Level 25 Anion Gap 10 Blood Urea Nitrogen 19 Creatinine 0.90 Glucose Level 112 Calcium Level 8.9 Medications Current Medications Ondansetron HCl (Zofran Inj) 4 mg Q6H PRN IV NAUSEA AND/OR VOMITING; Start at 04:30 Heparin Sodium (Porcine) (Heparin (5000 Units/0.5 ml)) 5,000 unit BID SC Last administered on 07/07/17t 09:53; Admin Dose 5,000 UNIT; Start 07/06/17 at 09: 00 Aspirin (Aspirin) 81 mg DAILY PO Last administered on 07/07/17 09:51; Admin Dose 81 MG; Start 07/06/17 at 09:00 Atorvastatin Calcium (Lipitor) 20 mg HS PO Last administered on 07/06/17 20: 38; Admin Dose 20 MG; Start 07/06/17 at 21:00 Nicotine (Nicoderm 21 Mg/ 24hr) 1 patch DAILY TRANSDERM Last administered on 16:51; Admin Dose 1 PATCH; Start 07/06/17 at 11:00 Lorazepam (Ativan) 0.5 mg HS PRN PO ANXIETY Last administered on 07/06/17 22: 40; Admin Dose 0.5 MG; Start 07/06/17 at 10:30 Montelukast Sodium (Singulair) 10 mg QHS PO Last administered on 07/06/17 20: 38; Admin Dose 10 MG; Start 07/06/17 at 21:00 Pantoprazole (Protonix Tab) 40 mg BID@06,18 PO Last administered on 07/07/17 17:22; Admin Dose 40 MG; Start 07/06/17 at 18:00 Pantoprazole (Protonix Tab) 40 mg DAILY@06 PO ; Start 07/07/17 at 06:00 Lorazepam (Ativan) 0.5 mg Q8H PRN PO ANXIETY Last administered on 07/07/17 13 :51; Admin Dose 0.5 MG; Start 07/06/17 at 18:00 Assessment/Plan Chief Complaint/Hosp Course A/p: TIA Continue ASA, lipitor increased 40 mg qhs, keep normotensive, euglycemic, OK to d/c home Problems: AZ COLE MD Jul 07, 2017 19:08
[2017-07-07] MEDS: MONTELUKAST 10 MG TAB PO SCH (20:21)
[2017-07-07] MEDS ORDERED: ATORVASTATIN 20 MG TAB PO SCH (21:00)
--- NOTE | 2017-07-07 21:39 | RADRPT ---
Echocardiogram Report Patient Name: AZ MACKENZIE Gender: Male Date: 1945 Study Date: 06-Jul-2017 [employer] Supervisor: FREDDIE Location: I Ref. Physician: ZENIA PARKER Quality: Adequate Procedures: Transthoracic echocardiogram with complete 2D, M-Mode, and doppler examination. Indications: Cerebrovascular Accident. 2D/M Mode Doppler Measurement Value Normal Ranges Measurement Value Normal Ranges AoR Diam MM 3.1 cm AV Peak Cj 1.0 m/sec LVIDd 2D 4.7 3.5 - 5.6 cm AV Peak PG 3.9 mmHg LVIDs 2D 3.5 2.1 - 4.1 cm LVOT Peak Cj 0.7 m/sec LVPWd 2D 1.0 0.6 - 1.1 cm LVOT Peak PG 2.1 mmHg IVSd 2D 0.9 0.6 - 1.1 cm MV E Peak Cj 0.6 m/sec EDV 2D 100.8 cm3 MV A Peak Cj 0.4 m/sec ESV 2D 41.9 cm3 MV E/A 1.5 LA Dimen 2D 3.5 2.3 - 4.0 cm MV Decel Time 192 msec MV Decel Mchenry 3 MV E/A 1.5 TR Peak Cj 2.4 m/sec TR Peak PG 22.8 mmHg PV Peak Cj 1.0 m/sec PV Peak PG 4.0 mmHg RVSP 25.8 mmHg Findings Left Ventricle: Lower limits of normal systolic function. Normal left ventricular cavity size. Normal left ventricular wall thickness. Ejection fraction is visually estimated at 50 %. Tissue Doppler/Mitral Doppler indices are within normal limits. E/E`=5. Right Ventricle: Normal right ventricular size. Normal right ventricular systolic function. Left Atrium: The left atrium is normal in size. Right Atrium: The right atrium is normal in size. Atrial Septum: Normal atrial septum. Mitral Valve: Mild mitral valve prolapse involving the posterior mitral leaflet. Mild mitral valve regurgitation. Aortic Valve: Normal appearance of the aortic valve. No significant aortic stenosis or insufficiency. Tricuspid Valve: Normal appearance of the tricuspid valve. Estimated peak PA systolic pressure 26 mmHg. There is trace tricuspid regurgitation. Pulmonic Valve: Normal pulmonic valve appearance, imaged from subcostal views. No evidence of pulmonic regurgitation. Pericardium: Normal pericardium with no significant pericardial effusion. No pleural effusion noted. Aorta: Normal aortic root. IVC: Normal size and normal respiratory collapse consistent with normal right atrial pressure. Pulmonary Artery: Normal pulmonary artery size. Conclusions 1.Lower limits of normal systolic function. Normal left ventricular cavity size. Normal left ventricular wall thickness. Ejection fraction is visually estimated at 50 %. Tissue Doppler/Mitral Doppler indices are within normal limits. E/E`=5. 2.Mild mitral valve prolapse involving the posterior mitral leaflet. Mild mitral valve regurgitation. 3.Normal appearance of the tricuspid valve. Estimated peak PA systolic pressure 26 mmHg. There is trace tricuspid regurgitation. Electronically Signed By: Ammon Ross 07-Jul-2017 21:38:18 -0800 Patient Name: AZ MACKENZIE Study Date: 06-Jul-2017 [id number]
[2017-07-07] MEDS: LORAZEPAM 0.5 MG TAB PO PRN (22:23)
[2017-07-08] VITALS (10 sets, daily range): BP systolic 108–133; BP diastolic 52–66; PULSE 46–70; RESP 18–20
[2017-07-08] MEDS: PANTOPRAZOLE (EC) 40 MG TAB PO SCH ×2 (05:24)
[2017-07-08] MEDS: ALBUTEROL HFA 8 GM INHALER INH SCH ×3 (05:24→13:50)
[2017-07-08] MEDS: ALBUTEROL/IPRATROPIUM (NEB) 3 ML AMP HHN SCH (07:50)
[2017-07-08] MEDS: NICOTINE (21 MG/24 HR) PATCH TRANSDERM SCH (08:53)
[2017-07-08] MEDS: ASPIRIN 81 MG TAB PO SCH (08:53)
[2017-07-08] MEDS: HEPARIN 5,000 UNIT/0.5 ML VIAL SC SCH (09:00)
[2017-07-08] MEDS ORDERED: ASPI81TA3 PO (09:41)
[2017-07-08] MEDS ORDERED: ATOR20TA65 PO (09:42)
--- NOTE | 2017-07-08 09:44 | PDOCDIS ---
Discharge Instructions DIAGNOSIS Discharge Diagnosis Diplopia CONDITION Patient Condition: Fair HOME CARE INSTRUCTIONS: Diet Instructions: RegularSpecial Diet: cardiac FOLLOW UP/APPOINTMENTS Follow-up Plan You have been started on a low dose aspirin and lipitor for stroke and heart attack prevention It is very improtant to refrain from smoking cigarettes See you primary care doctor in the next 1-2 weeks Return to the hospital if you have any concerning symptoms ALICJA DAVE MD Jul 08, 2017 09:44
[2017-07-08] MEDS: LORAZEPAM 0.5 MG TAB PO PRN (11:38)
--- NOTE | 2017-07-08 13:59 | RADRPT ---
PROCEDURE: Chest x-ray CLINICAL INDICATION: Shortness of breath TECHNIQUE: Chest single view COMPARISON: 07/05/2017 FINDINGS: The heart is normal in size. The pulmonary vessels are normal in caliber. The lungs are clear. Th e costophrenic angles are sharp. The visualized bony thorax is unremarkable. IMPRESSION: No acute cardiopulmonary disease. Stable atherosclerotic aortic calcification RPTAT: HH .Edinson Lazaro MD, MD Date Time Electronically viewed and signed by .Edinson Lazaro MD, on 07/08/2017 13:59 .W/
--- NOTE | 2017-07-08 15:52 | DS ---
Date/Time of Note Date/Time of Note DATE: 07/08/17 TIME: 15:50 Discharge Summary Admission/Discharge Info Admit Date/Time Jul 06, 2017 at 02:24 Discharge Date/Time Discharge Diagnosis Diplopia Hospital Course 72 yo male with episode of diplopia and gait instability, now resolved - Unclear etiology fo this, concenring for posterior circulation ischemia but MRI/MRA benign - Further workup/management per neurology Tobacco use d/o: - Continue NRT Aspirin for CV risk Patinet underwent an extensive workup per neurology consultation including MRI/ MRI which were negative for stroke or vasoocclusion. Telemetry was unremarkable as was TTE. He was cleared for dc home wiht a walker by PT. He was prescribed aspirin and statin at discharged and encouraged to follow up with his PMD. Home Meds Active Scripts Atorvastatin Calcium (Atorvastatin Calcium) 20 Mg Tablet, 40 MG PO HS for 60 Days, #60 TAB 5 Refills Prov:ALICJA DAVE MD 07/08/17 Aspirin (Aspirin) 81 Mg Chew, 81 MG PO DAILY for 60 Days, #60 TAB 5 Refills Prov:ALICJA DAVE MD 07/08/17 Guaifenesin (Guaifenesin) 600 Mg Tablet.sa, 600 MG PO BID for 14 Days, #28 TAB Prov:REAGAN CLAYTON MD 05/28/17 Pantoprazole* (Pantoprazole*) 40 Mg Tablet.dr, 40 MG PO BID@06,18 for 30 Days, # 60 TAB Prov:REAGAN CLAYTON MD 05/28/17 Nicotine* (Nicotine* Patch) 7 mg/day Patch, 1 PATCH TD DAILY for 14 Days, #14 PATCH Prov:REAGAN CLAYTON MD 05/28/17 Reported Medications Albuterol Sulfate* (Ventolin HFA*) 18 Gm Hfa.aer.ad, 2 PUFF INHALATION Q6H, #1 INHALER 05/20/17 Ipratropium-Albuterol (Ipratropium-Albuterol) 0.5-3 Mg/3 Ml Ampul.neb, 3 ML INHALATION BID, #30 VIAL 05/20/17 Cholecalciferol* (Vitamin D3*) 1,000 Unit Tablet, 3000 UNIT PO DAILY, TAB 05/20/17 Lorazepam* (Lorazepam*) 0.5 Mg Tablet, 0.5 MG PO HS Y for ANXIETY, TAB 05/20/17 Montelukast Sodium* (Singulair*) 10 Mg Tablet, 10 MG PO QHS, #30 TAB 05/20/17 Follow-up Plan You have been started on a low dose aspirin and lipitor for stroke and heart attack prevention It is very improtant to refrain from smoking cigarettes See you primary care doctor in the next 1-2 weeks Return to the hospital if you have any concerning symptoms Primary Care Provider Marissa Currie Pending Labs Laboratory Tests Test 07/07/17 17:28 Sodium Level 136mmol/L (135-144) Potassium Level 4.4mmol/L (3.5-5.1) Chloride Level 105mmol/L (97-110) Carbon Dioxide Level 25mmol/L (21-31) Anion Gap 10 (8-16) Blood Urea Nitrogen 19mg/dl (7-20) Creatinine 0.90mg/dl (0.61-1.24) Glucose Level 112mg/dl (70-220) Calcium Level 8.9mg/dl (8.4-10.2) ALICJA DAVE MD Jul 08, 2017 15:52
== END 2017-07-08 18:30 | disposition home or self-care (01) | DRG 123 ==
LOC: E/R 23:15 → TEL 07-06 02:24
PROVIDERS: ADMIT Internal Medicine; ATTEND Internal Medicine
DX: H53.2 Diplopia (principal); J44.9 Chronic obstructive pulmonary disease, unspecified; I10 Essential (primary) hypertension; E78.5 Hyperlipidemia, unspecified; F17.210 Nicotine dependence, cigarettes, uncomplicated; R26.81 Unsteadiness on feet
CPT/HCPCS: 36415; 70450; 70496; 70498; 70546; 70549; 70551; 71010; 80048; 80053; 80061; 80306; 81003; 83036; 83690; 83735; 84100; 84443; 84484; 85025; 85610; 93005; 93306; 94640; 94664; 97161; J1644; J7120; Q9967

== ENCOUNTER 2018-09-25 22:54 | Emergency (ER) | payer MEDICARE, OTHER ==
[~2018-09-25] VITALS: Ht 160 cm; Wt 61.0 kg
[~2018-09-25 22:54] MED LIST changes: +ASPI-831 PO; +ATOR20TA65 PO; -GUAI600T14 PO; +GUAI600T23 PO; -IPRA3AMP INHALATION; +IPRA3AMP29 INHALATION; +NICO-544 TD; -NICO1PAT43 TD
[2018-09-25 23:01] VITALS: Ht 160 cm; Wt 61.0 kg
[2018-09-25] MEDS ORDERED: IPRATROPIUM (NEB) 0.5 MG/2.5 ML AMP INH STA (23:12)
[2018-09-25] MEDS ORDERED: ALBUTEROL 0.083% (NEB) 2.5 MG/3 ML AMP INH STA (23:12)
[2018-09-25] MEDS ORDERED: SOD CHLORIDE 0.9% 1,000 ML IV STA (23:12)
[2018-09-25] MEDS ORDERED: LEVOFLOXACIN 750MG/D5W (PMX) 150 ML IVPB STA (23:12)
[2018-09-25] MEDS ORDERED: DEXAMETHASONE 10 MG/ML 1 ML INJ IV ONE (23:30)
[2018-09-26] MEDS ORDERED: KETOROLAC 30 MG INJ IV STA (00:14)
[2018-09-26 01:15] VITALS: BP 130/59; PULSE 80; RESP 18
--- NOTE | 2018-09-26 01:42 | ERD ---
ER Documentation Chief Complaint Chief Complaint left chest pressure 5/10 then w/ SOB and wheezes, improved w/ hhn albuterol HPI 73-year-old male with a history of asthma and hypertension presenting with complaints of not feeling well for the past 5 days. Per EMS report, the patient was complaining of some chest pain and back pain with shortness of breath and wheezing. He was given albuterol prior to arrival. To me the patient states that he is not having any chest pain or shortness of breath. He has not had a cough or any abnormal phlegm production. His only complaint is upper left-sided back pain that is worse with movement with no alleviating factors. He denies chest pain or shortness of breath. No fevers or chills. No hemoptysis. No recent travel, immobilization, or recent surgeries. ROS All systems reviewed and are negative except as per history of present illness. Medications Home Meds Active Scripts Atorvastatin Calcium (Atorvastatin Calcium) 20 Mg Tablet, 40 MG PO HS for 60 Days, #60 TAB 5 Refills Prov:ALICJA DAVE MD 07/08/17 Aspirin (Aspirin) 81 Mg Chew, 81 MG PO DAILY for 60 Days, #60 TAB 5 Refills Prov:ALICJA DAVE MD 07/08/17 Pantoprazole* (Pantoprazole*) 40 Mg Tablet.dr, 40 MG PO BID@ for 30 Days, #60 TAB Prov:REAGAN CLAYTON MD 05/28/17 Reported Medications Albuterol Sulfate* (Ventolin HFA*) 18 Gm Hfa.aer.ad, 2 PUFF INHALATION Q6H, #1 INHALER 05/20/17 Ipratropium-Albuterol (Ipratropium-Albuterol) 0.5-3 Mg/3 Ml Ampul.neb, 3 ML INHALATION BID, #30 VIAL 05/20/17 Cholecalciferol* (Vitamin D3*) 1,000 Unit Tablet, 3000 UNIT PO DAILY, TAB 05/20/17 Lorazepam* (Lorazepam*) 0.5 Mg Tablet, 0.5 MG PO HS PRN for ANXIETY, TAB 05/20/17 Montelukast Sodium* (Singulair*) 10 Mg Tablet, 10 MG PO QHS, #30 TAB 05/20/17 Discontinued Scripts Guaifenesin (Guaifenesin) 600 Mg Tablet.sa, 600 MG PO BID for 14 Days, #28 TAB Prov:REAGAN CLAYTON MD 05/28/17 Nicotine* (Nicotine* Patch) 7 mg/day Patch, 1 PATCH TD DAILY for 14 Days, #14 PATCH Prov:REAGAN CLAYTON MD 05/28/17 Allergies Allergies: Coded Allergies: amoxicillin (Unverified Allergy, Unknown, liver sweling, 09/26/18) PMhx/Soc History of Surgery: No Anesthesia Reaction: No Hx Neurological Disorder: No Hx Respiratory Disorders: Yes (Asthma) Hx Cardiac Disorders: Yes (HTN) Hx Psychiatric Problems: No Hx Miscellaneous Medical Probl: No Hx Alcohol Use: Yes Hx Substance Use: No Hx Tobacco Use: Yes Smoking Status: Current every day smoker FmHx Family History: No diabetes Physical Exam Vitals Vital Signs Date Temp Pulse Resp B/P (MAP) Pulse Ox O2 O2 Flow FiO2 Time Delivery Rate 09/26/18 98.3 80 18 130/59 96 Nasal 01:15 (82) Cannula 09/26/18 98.3 82 22 138/65 96 Nasal 00:09 (89) Cannula 09/25/18 82 22 93 21 23:26 09/25/18 98.3 84 21 158/81 99 Room Air 23:23 (106) 09/25/18 98.3 82 21 144/64 99 23:01 (90) Physical Exam Const: No acute distress Head: Atraumatic Eyes: Normal Conjunctiva ENT: Normal External Ears, Nose and Mouth. Neck: Full range of motion. No meningismus. No JVD Resp: Diminished breath sounds bilaterally with expiratory wheezing. No rales or rhonchi Cardio: Regular rate and rhythm, no murmurs. 2+ distal pulses equal in all 4 extremities Abd: Soft, non tender, non distended. Normal bowel sounds Skin: No petechiae or rashes Back: No midline or flank tenderness Ext: No cyanosis, or edema Neur: Awake and alert, normal speech, moving all extremities Psych: Normal Mood and Affect Result Diagram: 09/25/18231409/25/185 Results 24 hrs Laboratory Tests Test 09/25/18 23:15 09/26/18 00:58 White Blood Count 9.7 10^3/ul Red Blood Count 4.57 10^6/ul Hemoglobin 13.4 g/dl Hematocrit 41.4 % Mean Corpuscular Volume 90.6 fl Mean Corpuscular Hemoglobin 29.3 pg Mean Corpuscular Hemoglobin Concent 32.4 g/dl Red Cell Distribution Width 16.9 % Platelet Count 208 10^3/UL Mean Platelet Volume 10.5 fl Immature Granulocytes % 2.500 % Neutrophils % 52.9 % Lymphocytes % 32.2 % Monocytes % 10.4 % Eosinophils % 1.3 % Basophils % 0.7 % Nucleated Red Blood Cells % 0.0 /100WBC Immature Granulocytes # 0.240 10^3/ul Neutrophils # 5.1 10^3/ul Lymphocytes # 3.1 10^3/ul Monocytes # 1.0 10^3/ul Eosinophils # 0.1 10^3/ul Basophils # 0.1 10^3/ul Nucleated Red Blood Cells # 0.0 10^3/ul Sodium Level 138 mmol/L Potassium Level 4.4 mmol/L Chloride Level 104 mmol/L Carbon Dioxide Level 25 mmol/L Anion Gap 9 Blood Urea Nitrogen 24 mg/dl Creatinine 0.90 mg/dl Est Glomerular Filtrat Rate mL/min mL/min Glucose Level 106 mg/dl Calcium Level 9.2 mg/dl Troponin I < 0.012 ng/ml POC Venous Lactate 1.0 mmol/L Current Medications Medications Dose Sig/Baljeet Start Time Status Last (Trade) Ordered Route PRN Stop Time Admin Dose Reason Admin Sodium 1,000 ml @ Q1H STAT 09/25/18 DC 09/25/18 Chloride 1,000 mls/hr IV 23:12 23:57 09/26/18 00:11 Albuterol 5 mg ONCE STAT 09/25/18 DC 09/25/18 (Proventil INH 23:12 23:26 0.083% (Neb)) 09/25/18 23:15 Ipratropium 0.5 mg ONCE STAT 09/25/18 DC 09/25/18 [place] INH 23:12 23:26 (Atrovent 09/25/18 23:15 0.02% (Neb)) 150 ml @ ONCE STAT 09/25/18 DC 09/25/18 Levofloxacin/ 100 mls/hr IVPB 23:12 23:57 Dextrose 09/26/18 00:41 10 mg ONCE ONCE 09/25/18 DC 09/25/18 Dexamethasone IV 23:30 23:56 (Decadron) 09/25/18 23:31 Ketorolac 30 mg ONCE STAT 09/26/18 DC 09/26/18 Tromethamine IV 00:14 00:41 (Toradol) 09/26/18 00:15 Procedures/MDM EMERGENT LABS AND DIAGNOSTIC STUDIES: Lab Results above were reviewed and interpreted by me. CBC: no anemia or evidence of infection BMP: No evidence of electrolyte abnormality, renal failure, hypoglycemia Troponin within normal limits, not indicative of cardiac ischemia Lactate within normal limits without evidence of sepsis or tissue hypoperfusion 12-lead EKG was interpreted by Екатерина Boudreaux MD: Normal Sinus Rhythm Rightward axis Normal intervals No acute ST or T wave changes suggestive of acute ischemia or STEMI. Chest X-ray 1V Interpreted by me: Soft Tissue: No acute abnormalities Bones: No acute abnormalities Mediastinum/Cardiac Silhouette/Lungs: No acute abnormalities Initial Nursing notes reviewed. Previous Medical Records requested via the Electronic Health Record. EMERGENCY DEPARTMENT COURSE / MEDICAL DECISION MAKING: Patient presented with complaints of back pain and wheezing. Vitals were stable upon arrival. Workup does not show any significant abnormalities. There is no evidence of acute coronary syndrome on workup done today. I doubt pulmonary embolism or aortic dissection. No evidence of pneumonia or pneumothorax on chest x-ray. He was treated with breathing treatments, as well as Decadron. Upon reevaluation, his wheezing is improved but still there. Patient states that he feels well and is ready to go home. I will feel he requires admission at this time. Strict return precautions discussed with him and his family. Follow-up with PCP recommended within 2-3 days. Patient's blood pressure was elevated (>120/80) but appears stable without evidence of hypertensive emergency or urgency. The patient was counseled about the risks of hypertension and urged to pursue outpatient monitoring and therapy within a week with their primary care physician. Departure Diagnosis: Primary Impression: Back pain Back pain location: thoracic back pain Chronicity: acute Back pain laterality: left Qualified Codes: M54.6 - Pain in thoracic spine Additional Impressions: Generalized weakness Chest tightness Condition: Stable Patient Instructions: Back Pain (Acute Or Chronic), Chest Pain, Uncertain Cause Additional Instructions: Make an appointment to see your primary care doctor in 3 days. Return to the ER for any worsening symptoms. SANDRA BOUDREAUX MD Sep 26, 2018 01:42
== END 2018-09-26 02:19 | disposition home or self-care (01) ==
LOC: E/R 22:54
DX: M54.6 Pain in thoracic spine (principal); R53.1 Weakness; J45.909 Unspecified asthma, uncomplicated; I10 Essential (primary) hypertension; F17.210 Nicotine dependence, cigarettes, uncomplicated; R06.02 Shortness of breath; Z79.82 Long term (current) use of aspirin
CPT/HCPCS: 36415; 71045; 80048; 83605; 84484; 85025; 94664; 96374; 96375; 99285; J1100; J1885; J1956; J7030

== ENCOUNTER 2019-01-04 07:48 | Emergency (ER) | payer MEDICARE, OTHER ==
[~2019-01-04] VITALS: Ht 165.1 cm; Wt 64.1 kg
[~2019-01-04 07:48] MED LIST changes: -GUAI600T23 PO; -NICO-544 TD
[2019-01-04 07:52] VITALS: BP 162/70; PULSE 64; RESP 18; Ht 165.1 cm; Wt 64.1 kg
--- NOTE | 2019-01-04 08:26 | ERD ---
ER Documentation Chief Complaint Chief Complaint left hand pain s/p slip hit hand yesterday HPI 73-year-old male complaining of left hand pain. Patient states he was walking to the sink last night around 11 PM when he fell forward and hit his left hand on the sink counter. Patient denies any LOC or any sensation of passing out. Patient did not hit his head. Patient states he just tripped on the rug and hit his hand when he tried to catch himself. Patient had recent history of spine surgery on the November 25 2018. Patient has history of hypertension. Patient denies alcohol use or tobacco use. Patient patient takes aspirin every other day and is on narcotics for his recent back surgery area ROS All systems reviewed and are negative except as per history of present illness. Medications Home Meds Active Scripts Atorvastatin Calcium (Atorvastatin Calcium) 20 Mg Tablet, 40 MG PO HS for 60 Days, #60 TAB 5 Refills Prov:ALICJA DAVE MD 07/08/17 Aspirin (Aspirin) 81 Mg Chew, 81 MG PO DAILY for 60 Days, #60 TAB 5 Refills Prov:ALICJA DAVE MD 07/08/17 Pantoprazole* (Pantoprazole*) 40 Mg Tablet.dr, 40 MG PO BID@06,18 for 30 Days, #60 TAB Prov:REAGAN CLAYTON MD 05/28/17 Reported Medications Albuterol Sulfate* (Ventolin HFA*) 18 Gm Hfa.aer.ad, 2 PUFF INHALATION Q6H, #1 INHALER 05/20/17 Ipratropium-Albuterol (Ipratropium-Albuterol) 0.5-3 Mg/3 Ml Ampul.neb, 3 ML INHALATION BID, #30 VIAL 05/20/17 Cholecalciferol* (Vitamin D3*) 1,000 Unit Tablet, 3000 UNIT PO DAILY, TAB 05/20/17 Lorazepam* (Lorazepam*) 0.5 Mg Tablet, 0.5 MG PO HS PRN for ANXIETY, TAB 05/20/17 Montelukast Sodium* (Singulair*) 10 Mg Tablet, 10 MG PO QHS, #30 TAB 05/20/17 Allergies Allergies: Coded Allergies: amoxicillin (Unverified Allergy, Unknown, liver sweling, 09/26/18) PMhx/Soc Patient had spine surgery November 25, 2018 Patient had a spot removed on his left lower lung August 20, 2017 Patient has history of high blood pressure History of Surgery: Yes Anesthesia Reaction: No Hx Neurological Disorder: No Hx Respiratory Disorders: Yes (Asthma) Hx Cardiac Disorders: Yes (HTN) Hx Psychiatric Problems: No Hx Miscellaneous Medical Probl: No Hx Alcohol Use: Yes Hx Substance Use: No Hx Tobacco Use: Yes Physical Exam Vitals Vital Signs Date Temp Pulse Resp B/P (MAP) Pulse Ox O2 O2 Flow FiO2 Time Delivery Rate 01/04/19 97.2 64 18 162/70 96 07:52 (100) Physical Exam Const: No acute distress Head: Atraumatic Resp: Clear to auscultation bilaterally Cardio: Regular rate and rhythm, no murmurs Ext: Left hand edema with ecchymosis. Patient has good pulse, motor. and se nsation in left upper extremity. No deformities noted on left wrist or elbow. patient has pain on palpation to left hand. Procedures/MDM PROCEDURE: Left hand x-ray CLINICAL INDICATION: Left Hand pain secondary to fall. Left Index MIP TECHNIQUE: AP, lateral and oblique views of the left hand were obtained. COMPARISON: None FINDINGS: No acute appearing fracture detected, allowing for the limitation of osteopenia. No dislocation. 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 Bone island or enchondroma in the proximal phalanx. Mild soft tissue swelling. IMPRESSION: Soft tissue swelling most pronounced at the index finger, without evidence of acute fracture or dislocation. Mild to moderate degenerative joint disease. ROCEDURE: XR Left Wrist. CLINICAL INDICATION: Left Hand pain secondary to fall. Left Index MIP TECHNIQUE: AP, lateral and oblique views of the left wrist were performed. COMPARISON: No prior studies are available for comparison. FINDINGS: No evidence of acute fracture or dislocation. Mild to moderate degenerate joint disease at the thumb base and wrist. Mild positive ulnar variance with subchondral cystic changes in the base of the lunate. Mild soft tissue swelling. IMPRESSION: No evidence of acute fracture or dislocation. Mild to moderate degenerate changes, and evidence of ulnar abutment. ER Course: 73-year-old male presented with left hand pain. Physical exam noted swelling and contusion to left hand. Patient was sent for left hand and wrist x-ray. Patient was placed in Velcro splint. Patient was discharged with instructions to follow-up with primary care provider within 1 to 2 days regarding this ER visit. Patient had no further questions upon discharge. MDM Patient was sent out for left hand and left wrist x-rays. Three-view x-rays were obtained with no signs of fractures or dislocations. Physical exam was unremarkable for any lacerations or abrasions. I have low index of suspicion that patient is at increased risk for infection. Patient had good pulse motor and sensation in the extremity. I have a low index of suspicion for neurovascular injury to the extremity. Patient had no signs of compartment syndrome. Patient had no deformity or pain to the wrist or elbow. Low suspicion for fracture and proximal left upper extremity. Patient was advised to follow-up with his primary care provider within 1 to 2 days. Patient was giving Velcro splint and was informed to keep the splint on and keep it elevated. Patient had no neurovascular impairment prior to applying splint and neurovascular exam was done post splint and was unremarkable. Patient was advised if symptoms worsen to return to the ER. Patient had no further question upon discharge. Departure Diagnosis: Primary Impression: Contusion, hand Encounter type: initial encounter Laterality: left Qualified Codes: S60.222A - Contusion of left hand, initial encounter Condition: Serious Patient Instructions: Contusion, Hand [facility]errals[facility] Additional Instructions: Patient was advised to to ice the extremity and take Ibprofein to help reduce inflammation. Patient was informed the xray showed no fractures, but he needs to follow up with his PCP within 1-2 days. AARTI COBB PA-C January 04, 2019 08:26
== END 2019-01-04 09:45 | disposition home or self-care (01) ==
LOC: FTE 07:48
DX: S60.222A Contusion of left hand, initial encounter (principal); J45.909 Unspecified asthma, uncomplicated; I10 Essential (primary) hypertension; W01.198A Fall on same level from slipping, tripping and stumbling with subsequent striking against other object, initial encounter; Y92.9 Unspecified place or not applicable; Z79.82 Long term (current) use of aspirin; Z87.891 Personal history of nicotine dependence